=== PATIENT | male | born 1955 | race Caucasian/White ===

== ENCOUNTER 2018-04-05 02:48 | Emergency (ER) | payer OTHER ==
[~2018-04-05] VITALS: Ht 182.9 cm; Wt 99.0 kg
[2018-04-05 02:48] VITALS: TEMP 36.6; O2SAT 97; Ht 182.9 cm; Wt 99.0 kg
[~2018-04-05 02:48] MED LIST: ASPI-461 PO; ATOR-24 PO; BENZ0.5T28 PO; CHOL1000 PO; CICL160A INH; CLOP1TAB15 PO; CMD6 PO; CRG125 PO; FERRTAB PO; HALO100I IM; IMDSR/30 PO; IRONCAP PO; LEVA45AE INH; LORA-741 PO; LSN25 PO; MESA800T2 PO; MIRT30TA2 PO; NTRGSL/4 UT; PANT1TAB4 PO; RANO1000 PO; RISP3TAB12 PO
[2018-04-05 03:18] LABS: BASO % 0.5 %; BASO ABS # 0.03 K/uL (0-0.2); EOS % 2.8 %; EOS ABS # 0.18 K/uL (0-0.5); HEMATOCRIT 36.1 % (42-52); HEMOGLOBIN 11.6 g/dL (14.0-18.0); IG# 0.01 K/uL (0.00-0.02); LYMPH % 23.8 %; LYMPH ABS # 1.54 K/uL (1.2-3.4); MEAN CELL VOLUME 88.7 fL (80-100); MEAN CORPUSCULAR HEMOGLOBIN 28.5 pg (25-34); MEAN CORPUSCULAR HGB CONC 32.1 g/dl (32-36); MEAN PLATELET VOLUME 10.3 fL (7.4-10.4); MONO % 11.1 %; MONO ABS # 0.72 K/uL (0.11-0.59); NEUT % 61.6 %; PLATELET COUNT 225 K/uL (130-400); RED CELL DISTRIBUTION WIDTH CV 13.8 % (11.5-14.5); RED CELL DISTRIBUTION WIDTH SD 44.4 fL (36.4-46.3); WHITE BLOOD COUNT 6.48 K/uL (4.8-10.8)
--- NOTE | 2018-04-05 03:22 | EMERGENCY ROOM VISIT NOTE ---
History Report prepared by Sunshine: Marek Saenz Under the Supervision of: Dr. Amaya Rico D.O. 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 Pt reports he was "just up walking around my cell when I must have passed out and woke up on the floor with left sided chest pain". Pain is sharp and burning and radiates into left shoulder and back. 8/10. Hx of chronic angia, but pt reports "it feels worse than normal". 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 Hx of 3 MIs with stenting 3months ago. Pacer. Checked 2mo. ago and working appropriately per pt. Also has hx of a-fib and cardiomyopathy. History of Present Illness The patient is a 62 year old male who presents to the Emergency Room from [facility] with complaints of an episode of left sided chest pain that onset 30-40 minutes ago. The patient states that he was up walking around his cell this evening and was feeling some chest pains. He notes that he thought these chest pains were "angina." The next thing the patient remembers is waking up on the floor. He does not recall what happened or how he ended up on the floor. He notes that he is now having left sided chest pain that he rates as an 8/10 in severity. The pain does radiate into the back. He denies any associated nausea, sweating, or abdominal pain. He did not suffer any injuries from the fall. The patient received nitroglycerin and 324 of Aspirin prior to arrival, this did not improve the symptoms. The patient does have an extensive cardiac history and has a pacemaker/defibrillator placed in the left chest. 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 A total of 10 systems reviewed and were otherwise negative. Past Medical & Surgical Medical Problems: (1) Anemia (2) Atrial fibrillation (3) Benign prostatic hypertrophy (4) Cerebrovascular disease (5) CHF (congestive heart failure) (6) COPD (chronic obstructive pulmonary disease) (7) Coronary artery disease (8) Diabetic neuropathy (9) Dyslipidemia (10) GERD (gastroesophageal reflux disease) (11) Hepatitis C (12) Hypertension Surgical Problems: (1) Status post cardiac catheterization (2) Status post cardiac pacemaker procedure (3) Status post coronary artery stent placement Family History Coronary artery disease FATHER MOTHER Social History Smoking Status: Current Every Day Smoker Marital Status: single Housing Status: other Occupation Status: other Current/Historical Medications Scheduled Aspirin (Aspirin), 81 MG PO QAM Atorvastatin (Lipitor), 40 MG PO HS Benztropine Mesylate (Benztropine Mesylate), 0.5 MG PO BID Carvedilol (Carvedilol), 12.5 MG PO BIDM Cholecalciferol (Vitamin D3), 2,000 UNITS PO DAILY Ciclesonide (Alvesco), 1 PUFF INH BID Clopidogrel (Plavix), 75 MG PO DAILY Ferrous Fumarate W/ Fa-Dss-B C (Nephron Fa), 1 TAB PO BIDM Haloperidol Decanoate (Haldol Decanoate 100), 1.5 ML IM DAILY/UD Isosorbide Mononitrate (Isosorbide Mononitrate ER), 30 MG PO BID Lisinopril (Lisinopril), 2.5 MG PO QAM Lorazepam (Ativan), 0.5 MG PO BID Mesalamine (Mesalamine Dr), 800 MG PO BID Mirtazapine Soltab (Remeron Soltab), 30 MG PO HS Nitroglycerin (Nitrostat), 0.4 MG UT PRN Pantoprazole (Pantoprazole Sodium), 40 MG PO BID Polysaccharide Iron-Folic Acid (Ferrex 150 Forte 150-1-25 mg-mg-Mcg), 1 CAP PO DAILY Ranolazine (Ranexa), 1,000 MG PO BID Risperidone (Risperdal), 3 MG PO BID Warfarin Sod (Coumadin), 6 MG PO DAILY Scheduled PRN Levalbuterol Tartrate (Levalbuterol Tartrate Hfa), 2 PUFFS INH QID PRN for SOB/ Wheezing Allergies Coded Allergies: Penicillins (Verified Adverse Reaction, Intermediate, "I get sick.", ) Sulfa Antibiotics (Verified Adverse Reaction, Intermediate, "I get sick." , 04/05/18) Uncoded Allergies: OLEORESIN CAPSICUM (Allergy, Unknown, UNKNOWN, 02/15/18) Physical Exam Vital Signs Date Time Temp Pulse Resp B/P (MAP) Pulse Ox O2 Delivery O2 Flow Rate FiO2 04/05/18 04:55 67 16 136/80 96 Room Air 04/05/18 04:02 58 18 134/78 97 Room Air 04/05/18 02:55 60 04/05/18 02:48 97 Room Air 04/05/18 02:48 36.6 63 16 131/75 97 Room Air 04/05/18 02:48 97 Room Air Physical Exam HEENT: Head - normocephalic and atraumatic Pupils are equal, round, and reactive to light. Extraocular eye muscles are intact, and sclera are anicteric. Nose - moist nasal mucosa without discharge. Mouth - moist buccal mucosa. Oropharynx is nonerythematous and there is no tonsillar exudate or edema noted. Neck: Supple; no JVD, nuchal rigidity, cervical lymphadenopathy, or auscultated bruits. Heart: Regular rate and rhythm. There is a normal S1 and S2 with no murmurs, clicks, or gallops appreciated. Lungs: Breath sounds are diminished in all lung franks with rhonchi at both bases. Abdomen: Soft, completely nontender, nondistended, with good bowel sounds. There are no palpable pulsatile masses or hepatosplenomegaly. There is no guarding, rigidity, or rebound noted. Extremities: No evidence of cyanosis, clubbing, or edema. There are easily palpable peripheral pulses. There is discoloration to the fingertips from tobacco. Skin: warm and dry with good turgor and no rashes. Medical Decision & Procedures ER Provider Diagnostic Interpretation: Radiology results as stated below per my review: CHEST X-RAY: No cardiomegaly, pacer/defibrillatory in place. Emphysematous changes present. Laboratory Results 04/05/18 03:02 Red Blood Count 4.07, Mean Corpuscular Volume 88.7, Mean Corpuscular Hemoglobin 28.5, Mean Corpuscular Hemoglobin Concent 32.1, Mean Platelet Volume 10.3, Neutrophils (%) (Auto) 61.6, Lymphocytes (%) (Auto) 23.8, Monocytes (%) (Auto) 11.1, Eosinophils (%) (Auto) 2.8, Basophils (%) (Auto) 0.5, Neutrophils # (Auto ) 4.00, Lymphocytes # (Auto) 1.54, Monocytes # (Auto) 0.72, Eosinophils # (Auto ) 0.18, Basophils # (Auto) 0.03 04/05/18 03:57 Test 04/05/18 03:02 04/05/18 03:57 White Blood Count 6.48 K/uL (4.8-10.8) Red Blood Count 4.07 M/uL (4.7-6.1) Hemoglobin 11.6 g/dL (14.0-18.0) Hematocrit 36.1 % (42-52) Mean Corpuscular Volume 88.7 fL (80-100) Mean Corpuscular Hemoglobin 28.5 pg (25-34) Mean Corpuscular Hemoglobin Concent 32.1 g/dl (32-36) Platelet Count 225 K/uL (130-400) Mean Platelet Volume 10.3 fL (7.4-10.4) Neutrophils (%) (Auto) 61.6 % Lymphocytes (%) (Auto) 23.8 % Monocytes (%) (Auto) 11.1 % Eosinophils (%) (Auto) 2.8 % Basophils (%) (Auto) 0.5 % Neutrophils # (Auto) 4.00 K/uL (1.4-6.5) Lymphocytes # (Auto) 1.54 K/uL (1.2-3.4) Monocytes # (Auto) 0.72 K/uL (0.11-0.59) Eosinophils # (Auto) 0.18 K/uL (0-0.5) Basophils # (Auto) 0.03 K/uL (0-0.2) RDW Standard Deviation 44.4 fL (36.4-46.3) RDW Coefficient of Variation 13.8 % (11.5-14.5) Immature Granulocyte % (Auto) 0.2 % Immature Granulocyte # (Auto) 0.01 K/uL (0.00-0.02) Prothrombin Time 34.5 SECONDS (9.0-12.0) Prothromb Time International Ratio 3.4 (0.9-1.1) Activated Partial Thromboplast Time 37.8 SECONDS (21.0-31.0) Partial Thromboplastin Ratio 1.5 Anion Gap 9.0 mmol/L (3-11) Est Creatinine Clear Calc Drug Dose 124.3 ml/min Estimated GFR () 114.3 Estimated GFR (Non- 98.6 BUN/Creatinine Ratio 7.9 (10-20) Calcium Level 8.2 mg/dl (8.5-10.1) Troponin I < 0.015 ng/ml (0-0.045) Laboratory results per my review. Medications Administered Medications (Trade) Dose Ordered Sig/Kamila Route Start Time Stop Time Status Last Admin Dose Admin Morphine Sulfate (MoRPHine SULFATE INJ) 4 mg NOW STAT IV 04/05/18 03:32 04/05/18 03:33 DC 04/05/18 03:43 4 MG Ondansetron HCl (Zofran Inj) 4 mg NOW STAT IV 04/05/18 03:32 04/05/18 03:33 DC 04/05/18 03:43 4 MG Procedure Medications Ordered: Zofran, Morphine Sulfate. ECG Per My Interpretation Indication: chest pain Rate (beats per minute): 62 Rhythm: normal sinus Findings: no acute ischemic change, no ectopy ED Course 0302: Past medical records reviewed. The patient was evaluated in room B6. A complete history and physical exam was performed. A 12-lead EKG was obtained. Laboratory studies were drawn as above. He had a chest x-ray. 0332: Ordered Morphine Sulfate 4 mg IV, Zofran 4 mg IV. His pacer/ defibrillator will be interrogated. 0338: I spoke with the [employer] policy services representative. He states that the patient's interrogation was totally normal. There was no signs of a cardiac dysrhythmia. 0437: Upon reevaluation, the patient is still having some discomfort but feels pretty good. I discussed findings and results with him. He verbalized agreement of the treatment plan. The patient was discharged home. Medical Decision The patient is a 62 year old male who presents to the Emergency Department with chest pain and syncope. Differential diagnosis includes STEMI, NSTEMI, unstable angina, pleurisy, aortic dissection, syncope, and cardiac dysrhythmia. Laboratory studies were reviewed and show; INR of 3.4, normal renal function, normal glucose, negative troponin, mild anemia with a hemoglobin of 11.6, no leukocytosis. This is a 62-year-old prisoner who presents to the emergency department after syncopal event in his cell. The patient states that he was up walking around in the next thing he knew he was on the ground. Following this event he had persistent substernal chest pain. The patient has a history of chronic chest discomfort. He does have a cardiac history with episodes of angina and previous stents placed. However, the patient has an EKG that is unchanged and negative troponin here in the emergency department. My suspicion is that this episode is noncardiac in origin. As for his syncopal event, it did not seem to be caused by an acute cardiac dysrhythmia. I am unsure what the cause was. He was encouraged to follow-up with the physicians at [facility] Medication Reconcilliation Current Medication List: was personally reviewed by me Blood Pressure Screening Patient's blood pressure: Normal blood pressure Impression Primary Impression: Syncope Additional Impression: Substernal chest pain Scribe Attestation The scribe's documentation has been prepared under my direction and personally reviewed by me in its entirety. I confirm that the note above accurately reflects all work, treatment, procedures, and medical decision making performed by me. Departure Information Dispostion Home / Self-Care ([facility]) Referrals Noah LYLE (PCP) Forms Call Back Authorization, HOME CARE DOCUMENTATION FORM, IMPORTANT VISIT INFORMATION Patient Instructions My [facility] Additional Instructions Rest. Move slowly. sit down immediately if you feel light headed Your chest discomfort does not seem to be cardiac in nature Follow up with the docs at [facility] Problem Qualifiers Primary Impression: Syncope Syncope type: unspecified Qualified Codes: R55 - Syncope and collapse
[2018-04-05] MEDS ORDERED: ONDANSETRON INJ 2 MG/ML 2 ML VIAL IV STA (03:32)
[2018-04-05] MEDS ORDERED: MoRPHine SULFATE 4 MG/ML 1 ML CARP\\VIAL IV STA (03:32)
[2018-04-05 04:15] LABS: INR 3.4 (0.9-1.1); PTT PATIENT 37.8 SECONDS (21.0-31.0)
[2018-04-05 04:25] LABS: BLOOD UREA NITROGEN 6 mg/dl (7-18); CALCIUM 8.2 mg/dl (8.5-10.1); CARBON DIOXIDE 25 mmol/L (21-32); CREATININE 0.77 mg/dl (0.60-1.40); GLUCOSE 91 mg/dl (70-99); SODIUM 142 mmol/L (136-145)
[2018-04-05 04:55] VITALS: BP 136/80; PULSE 67; O2SAT 96
--- NOTE | 2018-04-05 07:16 | DIAGNOSTIC IMAGING REPORT ---
CHEST ONE VIEW PORTABLE HISTORY: Left-sided chest pain. COMPARISON: Chest 02/25/2018. FINDINGS: Left-sided single lead pacemaker/defibrillator. The heart remains borderline enlarged. The lungs are clear. No pleural effusions. No pneumothorax. Old, healed left-sided rib fractures. IMPRESSION: No significant change compared to the prior study. No acute process. Electronically signed by: Rich Patel M.D. 04/05/2018 7:15 AM Dictated Date/Time: 04/05/2018 7:14 AM
== END 2018-04-05 05:05 | disposition home or self-care (01) ==
LOC: C.EDB 02:48 → EDBD 02:48 → C.EDB 05:05
DX: R07.2 Precordial pain (principal); R55 Syncope and collapse; E78.5 Hyperlipidemia, unspecified; J44.9 Chronic obstructive pulmonary disease, unspecified; D64.9 Anemia, unspecified; I11.0 Hypertensive heart disease with heart failure; I50.9 Heart failure, unspecified; K21.9 Gastro-esophageal reflux disease without esophagitis; I48.91 Unspecified atrial fibrillation; I25.2 Old myocardial infarction; Z79.01 Long term (current) use of anticoagulants; Z79.82 Long term (current) use of aspirin; Z79.02 Long term (current) use of antithrombotics/antiplatelets; F17.200 Nicotine dependence, unspecified, uncomplicated; Z95.0 Presence of cardiac pacemaker; Z95.5 Presence of coronary angioplasty implant and graft; Z86.19 Personal history of other infectious and parasitic diseases; Z82.49 Family history of ischemic heart disease and other diseases of the circulatory system; Z88.0 Allergy status to penicillin; Z88.2 Allergy status to sulfonamides

== ENCOUNTER 2019-02-22 12:10 | Inpatient (IN) ==
--- OUTSIDE RECORDS SUMMARY | 2019-02-22 12:12 | External Medical Summary | Continuity of Care Document ---
:1955 Author Name Patrizia Fuentes, Provider Address Unavailable Unavailable , Care Team Providers Name Role Phone Can Parish PA-C Unavailable [email or web address] Bryanna Diane M.D. Unavailable [email or web address] Natalya CONTRERAS Unavailable Unavailable Problems COPD (chronic obstructive pulmonary disease) (496) (J44.9) Gastro-esophageal reflux (530.81) (K21.9) AICD (automatic cardioverter/defibrillator) present (V45.02) (Z95.810) Mitral regurgitation (424.0) (I34.0) Chest pain (786.50) (R07.9) Atypical chest pain (786.59) (R07.89) CAD (coronary artery disease) (414.00) (I25.10) Chronic systolic congestive heart failure (428.22) (I50.22) Hypertension (401.9) (I10) RCA occlusion (410.90) (I24.0) AF (paroxysmal atrial fibrillation) (427.31) (I48.0) Dyslipidemia (272.4) (E78.5) Cardiomyopathy, ischemic (414.8) (I25.5) Allergies and Adverse Reactions Oleoresin Capsicum POWD (Allergy) Penicillins (Allergy) Sulfa Drugs (Allergy) Medications Benztropine Mesylate 0.5 MG Oral Tablet; TAKE 1 TABLET BY [facility] TWICE DAILY Refills: 0 Mirtazapine 30 MG Oral Tablet; TAKE 1 TABLET BY MOUTH AT BED TIME Refills: 0 risperiDONE 3 MG Oral Tablet; TAKE 1 TABLET BY MOUTH TWICE D AILY Refills: 0 Haloperidol Decanoate 100 MG/ML Intramus cular Solution; INJECT 1.5 ML INTRA- MUSCULARLY ONCE DAILY EVERY 3 WEEKS ON DAY THURSDAY Refills: 0 Carvedilol 25 MG Oral Tablet; TAKE 1 TABLET TWICE DAILY. JANETTE Sabillon Quantity: 60 Refills: 11 Lisinopril 2.5 MG Oral Tablet; take 1 tablet by mouth once d aily Refills: 0 Aspirin 81 MG Oral Tablet Chewable; CHEW AND SWALLOW 1 TABLE T DAILY. Refills: 0 DULoxetine HCl - 30 MG Oral Capsule Nelly yed Release Particles; TAKE 1 CAPSUSLE BY MOUTH ONCE DAILY Refills: 0 Alvesco 160 MCG/ACT Inhalation Aerosol S olution; INHALE 1 PUFF ORALLY TWICE DAILY 6.1 GM Inhaler Refills: 0 Atorvastatin Calcium 40 MG Oral Tablet; TAKE 1 TABLET BY RAINER AT BEDTIME 90 Tablet Bottle Refills: 0 Clopidogrel Bisulfate 75 MG Oral Tablet; take 1 tablet by mo [facility] once daily 30 Tablet Bottle Refills: 0 Ferrex 150 150 MG Oral Capsule; take 1 capsule by mouth once daily Refills: 0 Isosorbide Mononitrate ER 30 MG Oral Tab let Extended Release 24 Hour; TAKE 1 TABLET BY MOUTH TWICE DAILY Refills: 0 Mesalamine 800 MG Oral Tablet Delayed Re lease; TAKE 1 TABLET BY MOUTH TWICE DAILY Refills: 0 Nephron FA Oral Tablet; TAKE 1 TABLET BY MOUTH TWICE DAILY W ITH MEALS Refills: 0 Nitroglycerin 0.4 MG Sublingual Tablet S ublingual; PLACE 1 TABLET UNDER THE TONGUE FOUR TIMES DAILY NEEDED FOR CHEST PAIN Refills: 0 Warfarin Sodium 6 MG Oral Tablet; take 1 tablet by mouth onc e daily Refills: 0 Xopenex HFA 45 MCG/ACT Inhalation Aeroso l; INHALE 2 PUFFS ORALLY FOUR TIMES DAILY NEEDED 15 GM Inhaler Refills: 0 Ranexa 1000 MG Oral Tablet Extended Release 12 Hour Refills: 0 Vitamin D3 1000 UNIT Oral Tablet; take 2 tablets by mouth on ce daily Refills: 0 Procedures History of cardioverter defibrillator insertion Status: Completed History of Cardiac Cath Procedure Summary Status: Completed Immunizations Immunizations not documented Social History - Smoking Status Current every day smoker Plan of Treatment Planned Encounters Appointment; Fahad Diane M.D. Start: 21-Feb-2019 10:1 5 Request Planned Observations Planned Goals not documented Results No Known Results Results not documented Encounters Appointment; Paddy Burch M.D. 06-Dec-2018 11:30 Encounter Diagnosis: Problem not documented Appointment; Can Parish PA-C 20-May-2018 10:30 Encounter Diagnosis: Problem not documented Appointment; Fahad Diane M.D. 21-Feb-2019 10:15 Encounter Diagnosis: Problem not documented
[2019-02-22] MEDS ORDERED: SODIUM CHLORIDE 0.9% 1000ML 1,000 ML IV SCH (12:30)
[2019-02-22 13:06] LABS: Basophils # (auto) 0.02 K/uL (0-0.2); Basophils % (auto) 0.4 %; Eosinophils # (auto) 0.15 K/uL (0-0.5); Eosinophils % (auto) 2.8 %; Hematocrit (blood only) 25.2 % (42-52); Hemoglobin 8.8 g/dL (14.0-18.0); Immature Granulocytes # (auto) 0.02 K/uL (0.00-0.02); Immature Granulocytes % (auto) 0.4 %; Lymphocytes # (auto) 1.24 K/uL (1.2-3.4); Lymphocytes % (auto) 23.2 %; Mean Corpuscular Hgb Conc 34.9 g/dL (32-36); Mean Corpuscular Volume 88.1 fL (80-100); Mean Platelet Volume 9.5 fL (7.4-10.4); Monocytes # (auto) 0.46 K/uL (0.11-0.59); Monocytes % (auto) 8.6 %; Neutrophils # (auto) 3.45 K/uL (1.4-6.5); Neutrophils % (auto) 64.6 %; Platelet Count 202 K/uL (130-400); RDW Coefficient of Variation 15.3 % (11.5-14.5); RDW Standard Deviation 49.2 fL (36.4-46.3); Red Blood Count 2.86 M/uL (4.7-6.1); White Blood Count 5.34 K/uL (4.8-10.8)
--- NOTE | 2019-02-22 13:06 | XRay Report ---
SINGLE VIEW CHEST CLINICAL HISTORY: Atypical chest pain. FINDINGS: An AP, portable, upright chest radiograph is compared to chest x-ray and chest CT dated 05/16/2018. The examination is degraded by portable technique and patient rotation. A single lead cardiac AICD is unchanged in position and partially obscures the left lower chest. The heart is enlarged and there is atherosclerotic calcification of the thoracic aorta. The pulmonary vasculature is nonconges jared. Emphysema and chronic interstitial thickening are similar to previous. There is mild bibasilar a telectasis. No airspace consolidation or large pleural effusion is identified. No pneumothorax is see n. The skeletal structures are osteopenic. There are healed bilateral rib fractures. IMPRESSION: 1. Cardiomegaly and AICD. There is no radiographic evidence of congestive failure. 2. Emphysema. 3. No airspace consolidation or large pleural effusion is identified. Electronically signed by: Vincenzo Lion M.D. 02/22/2019 1:04 PM
[2019-02-22 13:27] LABS: Alanine Aminotransferase 22 U/L (12-78); Albumin Level 3.4 gm/dl (3.4-5.0); Aspartate Aminotransferase 19 U/L (15-37); BUN Creatinine Ratio 12.2 (10-20); Blood Urea Nitrogen 15 mg/dl (7-18); Calcium 8.3 mg/dl (8.5-10.1); Carbon Dioxide 24 mmol/L (21-32); Chloride 106 mmol/L (98-107); Est GFR (Non-African American) 65.5; Glucose 112 mg/dl (70-99); Potassium 4.1 mmol/L (3.5-5.1); Sodium 136 mmol/L (136-145)
[2019-02-22 13:34] LABS: Albumin Globulin Ratio 1.2 (0.9-2); Alkaline Phosphatase 66 U/L (45-117); Bilirubin,Total 0.2 mg/dl (0.2-1); Globulin 2.9 gm/dl (2.5-4.0); Phosphorus 2.5 mg/dl (2.5-4.9); Total Protein 6.3 gm/dl (6.4-8.2); Troponin I < 0.015 ng/ml (0-0.045)
[2019-02-22 13:36] LABS: INR 4.7 (0.9-1.1); Prothrombin Time 43.4 Seconds (9.0-12.0)
[2019-02-22] MEDS ORDERED: IOVERSOL 100ml IV PRN (14:14)
--- NOTE | 2019-02-22 14:27 | CT Scan Report ---
CT abd pelvis IV con only CLINICAL HISTORY: hematochezia, abd pain, Crohn's COMPARISON STUDY: None. TECHNIQUE: The patient was scanned in a dynamic helical fashion during intravenous administration of 92 cc of Optiray 320. A dose lowering technique was utilized adhering to the principles of ALARA. CT DOSE: FINDINGS: Lower chest: There is borderline distal esophageal wall thickening. There is a small pericardial effu boby. There are dependent atelectatic changes. There are no pleural effusions. Liver: The contrast-enhanced liver is normal in size, contour, and attenuation. There is no intrahepa tic biliary ductal dilatation. The hepatic veins and portal veins are patent. Gallbladder: Unremarkable. Spleen: Normal in size and attenuation. Pancreas: Unremarkable. Adrenal glands: Unremarkable. Kidneys: There is a to small to characterize 8 mm right renal hypodense lesion, likely representing a cyst. There is no hydronephrosis. Bowel: There are no transition zones indicate bowel obstruction. There is no evidence of acute divert iculitis. There is no evidence of acute appendicitis. Peritoneum: There is no intraperitoneal free air or abdominal ascites. There are postsurgical changes of anterior abdominal wall hernia repair. There is a neck show calcification within the anterior ashly tral abdomen, likely secondary to a prior focus of fat necrosis Vasculature: The abdominal aorta is normal in course and caliber. Adenopathy: None. Pelvic viscera: The bladder, and pelvic viscera are unremarkable. Skeletal structures: No destructive osseous lesions are seen. IMPRESSION: 1. No acute intra-abdominal or pelvic findings. 2. No evidence of bowel obstruction. No evidence of free air. 3. Normal appendix. No evidence of acute diverticulitis. 4. Borderline distal esophageal wall thickening Electronically signed by: Mateo Ocampo M.D. 02/22/2019 2:25 PM
[2019-02-22] MEDS ORDERED: SODIUM CHLORIDE 0.9% 250 ML IV PRN ×2 (14:32→16:12)
[2019-02-22] MEDS ORDERED: PHYTONADIONE 2.5 MG in SODIUM CHLORIDE 0.9% 50 ML IV STA (14:33)
--- NOTE | 2019-02-22 15:09 | Gastrointestinal Consultation ---
Date of Consultation February 22, 2019 Assessment & Plan (1) Crohns disease: 63 year old male with history of Crohn's on mesalamine, afib, cardiac stenting on ASA, Plavix, Coumadin who presents w/ lower abdominal cramping and rectal bleeding starting last evening. He denies any melena or prior coffee ground emesis or hematemesis. He is awake, alert and oriented answering questions appropriately. He does report recent H&H as OP showed anemia w/ HGB around 9. Today HGB 8.8 w/o BUN elevation. INR is 4.7. DDX discussed: ischemic, IBD, diverticular, infectious, UGI PO PPI Trend H&H Monitor and document all GI output Transfuse PRN per primary service Check stool culture, and c.diff Would recommend to hold anticoagulants at this time Would recommend ongoing discussion of length of dual therapy NPO after midnight until re-evaluated by GI Thank you for allowing us to participate in the care of this patient. Please call with any acute changes, questions or concerns. Please see addendum below with additional recommendation from my supervising physician. Present on Admission?: Yes (2) Rectal bleed: Present on Admission?: Yes Supervising Physician Co-Signing Physician Notes I have personally seen and examined the patient with KIM Santoyo. Her note reflects my exam and findings. I agree with her impression and plan. Follow H/H and keep INR closer to 1.5/2.0. Will readdress need for endoscopy tomorrow. Juan Mohr M.D. History of Present Illness Reason for Consultation: GIB Requesting Physician: Malachi Attending Physician: Malachi History of Present Illness 63 year old male with history of AFIB, Ischemic cardiomyopathy, CHF, HLD, anemia, Crohn's disease and others below who presented with rectal bleeding. Pt was seen and evaluated, chart reviewed. Hx of crohn's on mesalamine. Denies abd surgeries for crohn's. Denies any TNF or biologics for Crohn's. He is on ASA, coumadin & Plavix. He has a pacer/defibrillator. Notes yesterday, developed lower abdominal cramping associated w/ fecal urgency. BM was just blood. No stool. Notes he had about three more stools. No black stools. Denies any UGI symtpoms specifically no nausea, vomiting. No fever, chills, CP, SOB. Does feel lightheaded. He is awake, alert and oriented. He has had soft BP and does report lightheadness. He suggest recent H&H at snf showed anemia w/ HGB around 9 - HGB today 8.8. No BUN elevation. EGD: years ago Colonoscopy: about [address]: No acute intra-abdominal or pelvic findings. No evidence of bowel obstruction. No evidence of free air. Normal appendix. No evidence of acute diverticulitis.Borderline distal esophageal wall thickening Allergies Allergy/AdvReac Type Severity Reaction Status Date / Time Penicillins AdvReac Intermediate "I get Verified 02/22/19 15:11 sick." Sulfa (Sulfonamide AdvReac Intermediate "I get Verified 02/22/19 15:11 Antibiotics) sick." OLEORESIN CAPSICUM Allergy Unknown UNKNOWN Uncoded 02/22/19 15:11 Home Medications Home Medications Medication Instructions Recorded Confirmed Type Alvesco 1 puff INHALATION BID 05/16/18 02/22/19 History atorvastatin 40 mg PO HS 05/16/18 02/22/19 History benztropine 0.5 mg PO BID 05/16/18 02/22/19 History clopidogrel [Plavix] 75 mg PO DAILY 05/16/18 02/22/19 History haloperidol decanoate 1.5 ml IM DIRECTED 05/16/18 02/22/19 History lisinopril 2.5 mg PO DAILY 05/16/18 02/22/19 History mesalamine 800 mg PO BID 05/16/18 02/22/19 History nitroglycerin [Nitrostat] 0.4 mg SUBLINGUAL QID PRN 05/16/18 02/22/19 History ranolazine [Ranexa] 1,000 mg PO BID 05/16/18 02/22/19 History albuterol sulfate 2 puff INHALATION TID PRN 02/22/19 02/22/19 History aspirin 81 mg PO DAILY 02/22/19 02/22/19 History carvedilol 25 mg PO BID 02/22/19 02/22/19 History celecoxib 100 mg PO DAILY 02/22/19 02/22/19 History ferrous gluconate 324 mg PO DAILY 02/22/19 02/22/19 History iron-folic acid-B [id number] 1 tab PO DAILY 02/22/19 02/22/19 History [Nephron FA] isosorbide mononitrate 60 mg PO BID 02/22/19 02/22/19 History nortriptyline 25 mg PO BID 02/22/19 02/22/19 History olanzapine 10 mg PO HS 02/22/19 02/22/19 History warfarin 3 mg PO DAILY 02/22/19 02/22/19 History warfarin 4 mg PO DAILY 02/22/19 02/22/19 History Patient History Medical History Neuropathy (Chronic) Mood disorder (Chronic) Presence of combination internal cardiac defibrillator (ICD) and pacemaker (Chronic) Ischemic cardiomyopathy (Chronic) Chronic systolic CHF (congestive heart failure) (Chronic) Crohns disease (Chronic) Coronary artery disease (Chronic) Remote history of RCA territory AL with resultant ischemic cardiomyopathy 10/2017-RIGO to LAD, total RCA occlusion that was not amenable to intervention Atrial fibrillation (Chronic) Hepatitis C (Chronic) Benign prostatic hypertrophy (Chronic) Cerebrovascular disease (Chronic) Dyslipidemia (Chronic) Hypertension (Chronic) GERD (gastroesophageal reflux disease) (Chronic) COPD (chronic obstructive pulmonary disease) (Chronic) Anemia (Chronic) Family History Mother Cancer Father Heart disease Social History Preferred Language: Slovak Communication Ability: Effective 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: No Beliefs That Will Affect Care: None Current Living Situation: Other Feels Safe at Home: Yes Smoking Status: Current some day smoker Tobacco Type: cigarettes Hx Alcohol Use: No Hx Substance Use: No Review of Systems Constitutional: no fever, no chills and no fatigue Respiratory: no cough, no dyspnea and no wheezing Cardiovascular: no chest pain, no radiating jaw, neck or arm pain and no claudication Gastrointestinal: + abdominal pain (cramping) and + blood in stools (BRB); no heartburn, no nausea, no vomiting, no coffee ground emesis, no hematemesis and n o melena Physical Exam Constitutional: WD/WN, vitals as above no acute distress Neck: trachea midline Respiratory: normal respiratory effort and + respiratory distress Cardiovascular: Rate/Rhythm: regular rate and regular rhythm Gastrointestinal (Abdomen): Inspection/Auscultation: normal bowel sounds Percussion/Palpation: + abdomen tender (lower abd pain reported w/ palpation) and abdomen soft; no guarding, abdomen not rigid and no abdominal mass Skin: no rashes, warm and dry Results & Data Vital Signs (Past 12 Hours) Vital Signs Temp Pulse Pulse Resp BP BP Pulse Ox 02/22/19 13:02 70 17 90/57 L 97 02/22/19 12:12 36.5 C 87 20 92/65 L 99 Laboratory Results 02/22/19 02/22/19 02/22/19 Range/Units 14:57 13:01 12:56 WBC (4.8-10.8) K/uL RBC (4.7-6.1) M/uL Hgb (14.0-18.0) g/dL Hct (42-52) % MCV (80-100) fL MCH (25-34) pg MCHC (32-36) g/dL RDW Std Deviation (36.4-46.3) fL RDW Coeff of Joselito (11.5-14.5) % Plt Count (130-400) K/uL MPV (7.4-10.4) fL Immature Gran % (Auto) % Neut % (Auto) % Lymph % (Auto) % [place] % (Auto) % Eos % (Auto) % Baso % (Auto) % Immature Gran # (Auto) (0.00-0.02) K/uL Neut # (Auto) (1.4-6.5) K/uL Lymph # (Auto) (1.2-3.4) K/uL [place] # (Auto) (0.11-0.59) K/uL Eos # (Auto) (0-0.5) K/uL Baso # (Auto) (0-0.2) K/uL PT (9.0-12.0) Seconds INR (0.9-1.1) Sodium 136 (136-145) mmol/L Potassium 4.1 (3.5-5.1) mmol/L Chloride 106 (98-107) mmol/L Carbon Dioxide 24 (21-32) mmol/L Anion Gap 6.0 (3-11) BUN 15 (7-18) mg/dl Creatinine 1.19 (0.6-1.4) mg/dl Est Cr Clr Drug Dosing 73.0 ml/min Est GFR ( Amer) 76.0 Est GFR (Non-Af Amer) 65.5 BUN/Creatinine Ratio 12.2 (10-20) Glucose 112 H (70-99) mg/dl Calcium 8.3 L (8.5-10.1) mg/dl Phosphorus 2.5 (2.5-4.9) mg/dl Magnesium 2.0 (1.8-2.4) mg/dl Total Bilirubin 0.2 (0.2-1) mg/dl AST 19 (15-37) U/L ALT 22 (12-78) U/L Alkaline Phosphatase 66 (45-117) U/L Troponin I < 0.015 (0-0.045) ng/ml Total Protein 6.3 L (6.4-8.2) gm/dl Albumin 3.4 (3.4-5.0) gm/dl Globulin 2.9 (2.5-4.0) gm/dl Albumin/Globulin Ratio 1.2 (0.9-2) Lipase 79 (73-393) U/L Blood Type O Positive Blood Type Recheck Pending Antibody Screen NEGATIVE Crossmatch See Detail 02/22/19 02/22/19 Range/Units 12:56 12:56 WBC 5.34 (4.8-10.8) K/uL RBC 2.86 L (4.7-6.1) M/uL Hgb 8.8 L (14.0-18.0) g/dL Hct 25.2 L (42-52) % MCV 88.1 (80-100) fL MCH 30.8 (25-34) pg MCHC 34.9 (32-36) g/dL RDW Std Deviation 49.2 H (36.4-46.3) fL RDW Coeff of Joselito 15.3 H (11.5-14.5) % Plt Count 202 (130-400) K/uL MPV 9.5 (7.4-10.4) fL Immature Gran % (Auto) 0.4 % Neut % (Auto) 64.6 % Lymph % (Auto) 23.2 % [place] % (Auto) 8.6 % Eos % (Auto) 2.8 % Baso % (Auto) 0.4 % Immature Gran # (Auto) 0.02 (0.00-0.02) K/uL Neut # (Auto) 3.45 (1.4-6.5) K/uL Lymph # (Auto) 1.24 (1.2-3.4) K/uL [place] # (Auto) 0.46 (0.11-0.59) K/uL Eos # (Auto) 0.15 (0-0.5) K/uL Baso # (Auto) 0.02 (0-0.2) K/uL PT 43.4 H (9.0-12.0) Seconds INR 4.7 H (0.9-1.1) Sodium (136-145) mmol/L Potassium (3.5-5.1) mmol/L Chloride (98-107) mmol/L Carbon Dioxide (21-32) mmol/L Anion Gap (3-11) BUN (7-18) mg/dl Creatinine (0.6-1.4) mg/dl Est Cr Clr Drug Dosing ml/min Est GFR ( Amer) Est GFR (Non-Af Amer) BUN/Creatinine Ratio (10-20) Glucose (70-99) mg/dl Calcium (8.5-10.1) mg/dl Phosphorus (2.5-4.9) mg/dl Magnesium (1.8-2.4) mg/dl Total Bilirubin (0.2-1) mg/dl AST (15-37) U/L ALT (12-78) U/L Alkaline Phosphatase (45-117) U/L Troponin I (0-0.045) ng/ml Total Protein (6.4-8.2) gm/dl Albumin (3.4-5.0) gm/dl Globulin (2.5-4.0) gm/dl Albumin/Globulin Ratio (0.9-2) Lipase (73-393) U/L Blood Type Blood Type Recheck Antibody Screen Crossmatch
[2019-02-22] MEDS ORDERED: ICU PROTOCOL FOR HYPERGLYCEMIA PRN (16:12)
--- NOTE | 2019-02-22 16:19 | Emergency Department Note ---
Entered by Gayle Leon acting as a scribe for Kenroy Clark MD History of Present Illness General Chief complaint: Rectal Bleed Stated complaint: RECTAL BLEEDING Time Seen by Provider: 02/22/19 12:28 Source: patient History of Present Illness Provider complaint: rectal bleeding Onset (ago): hour(s) (12) Location: genitals (rectum) Pain Consistency: + other (episode) Maximum Pain Intensity: 6 Associated symptoms: + other (dizziness, hematochezia, black tarry stool, 6-7 bowel movements) Treatments prior to arrival: none The patient is a 63 year old male who presents to the ED with complaints of an episode of rectal bleeding beginning 12 hours ago. The patient states that he noticed black tarry stool with hematochezia last night around 0100 today. The patient notes that he has had 6-7 bowel movements since it started. The patient states that he feels dizzy. The patient denies any treatment prior to arrival. Home Medications Home Medications Medication Instructions Recorded Confirmed Type Alvesco 1 puff INHALATION BID 05/16/18 02/22/19 History atorvastatin 40 mg PO HS 05/16/18 02/22/19 History benztropine 0.5 mg PO BID 05/16/18 02/22/19 History clopidogrel [Plavix] 75 mg PO DAILY 05/16/18 02/22/19 History haloperidol decanoate 1.5 ml IM DIRECTED 05/16/18 02/22/19 History lisinopril 2.5 mg PO DAILY 05/16/18 02/22/19 History mesalamine 800 mg PO BID 05/16/18 02/22/19 History nitroglycerin [Nitrostat] 0.4 mg SUBLINGUAL QID PRN 05/16/18 02/22/19 History ranolazine [Ranexa] 1,000 mg PO BID 05/16/18 02/22/19 History albuterol sulfate 2 puff INHALATION TID PRN 02/22/19 02/22/19 History aspirin 81 mg PO DAILY 02/22/19 02/22/19 History carvedilol 25 mg PO BID 02/22/19 02/22/19 History celecoxib 100 mg PO DAILY 02/22/19 02/22/19 History ferrous gluconate 324 mg PO DAILY 02/22/19 02/22/19 History iron-folic acid-B [id number]-[id number]-pea 1 tab PO DAILY 02/22/19 02/22/19 History [Nephron FA] isosorbide mononitrate 60 mg PO BID 02/22/19 02/22/19 History nortriptyline 25 mg PO BID 02/22/19 02/22/19 History olanzapine 10 mg PO HS 02/22/19 02/22/19 History warfarin 3 mg PO DAILY 02/22/19 02/22/19 History warfarin 4 mg PO DAILY 02/22/19 02/22/19 History Allergies Allergy/AdvReac Type Severity Reaction Status Date / Time Penicillins AdvReac Intermediate "I get Verified 02/22/19 15:11 sick." Sulfa (Sulfonamide AdvReac Intermediate "I get Verified 02/22/19 15:11 Antibiotics) sick." OLEORESIN CAPSICUM Allergy Unknown UNKNOWN Uncoded 02/22/19 15:11 Past Med/Surg History Medical History Neuropathy (Chronic) Mood disorder (Chronic) Presence of combination internal cardiac defibrillator (ICD) and pacemaker (Chronic) Ischemic cardiomyopathy (Chronic) Chronic systolic CHF (congestive heart failure) (Chronic) Crohns disease (Chronic) Coronary artery disease (Chronic) Remote history of RCA territory [place] with resultant ischemic cardiomyopathy 10/2017-RIGO to LAD, total RCA occlusion that was not amenable to intervention Atrial fibrillation (Chronic) Hepatitis C (Chronic) Benign prostatic hypertrophy (Chronic) Cerebrovascular disease (Chronic) Dyslipidemia (Chronic) Hypertension (Chronic) GERD (gastroesophageal reflux disease) (Chronic) COPD (chronic obstructive pulmonary disease) (Chronic) Anemia (Chronic) Family History Mother Cancer Father Heart disease Social History Preferred Language: [place] Communication Ability: Effective Sand Hauler Required: No Beliefs That Will Affect Care: None Current Living Situation: Other Feels Safe at Home: Yes Smoking Status: Current some day smoker Tobacco Type: cigarettes Hx Alcohol Use: No Hx Substance Use: No Review of Systems See HPI for pertinent positives & negatives. and A total of 10 systems reviewed and were otherwise negative Physical Exam Vital Signs Vital Signs - 24 hr 02/22/19 12:12 02/22/19 13:02 02/22/19 13:13 Temperature 36.5 C Temperature Source Oral Sepsis Recent Fever Within 48 Hours No Sepsis New/Unexplained Change in Mental Status No Sepsis Action Taken by Nursing No Action Required Pulse Rate 87 75 70 Pulse Rate [Finger] 70 Pulse Rate from SpO2 Sensor 75 66 Respiratory Rate 20 17 20 Respiratory Effort / Characteristics Non-Labored Spontaneous Respiratory Depth Normal Respiratory Pattern Regular Blood Pressure 92/65 L 98/57 L Blood Pressure [Left Arm] 90/57 L Blood Pressure Mean 74 70 Blood Pressure Mean [Left Arm] 68 Blood Pressure Position Sitting Pulse Oximetry 99 99 98 Oxygen Delivery Method Room Air Room Air 02/22/19 13:30 02/22/19 13:50 02/22/19 14:00 Temperature Temperature Source Sepsis Recent Fever Within 48 Hours Sepsis New/Unexplained Change in Mental Status Sepsis Action Taken by Nursing Pulse Rate 66 64 68 Pulse Rate [Finger] Pulse Rate from SpO2 Sensor 65 64 65 Respiratory Rate 19 15 14 Respiratory Effort / Characteristics Respiratory Depth Respiratory Pattern Blood Pressure 99/63 L Blood Pressure [Left Arm] Blood Pressure Mean 75 Blood Pressure Mean [Left Arm] Blood Pressure Position Pulse Oximetry 97 100 100 Oxygen Delivery Method 02/22/19 14:30 02/22/19 15:00 Temperature Temperature Source Sepsis Recent Fever Within 48 Hours Sepsis New/Unexplained Change in Mental Status Sepsis Action Taken by Nursing Pulse Rate 63 71 Pulse Rate [Finger] Pulse Rate from SpO2 Sensor Respiratory Rate 17 17 Respiratory Effort / Characteristics Respiratory Depth Respiratory Pattern Blood Pressure Blood Pressure [Left Arm] Blood Pressure Mean Blood Pressure Mean [Left Arm] Blood Pressure Position Pulse Oximetry Oxygen Delivery Method GENERAL: Awake, alert, fatigued-appearing, in no distress HENT: Normocephalic, atraumatic. Oropharynx with dry mucous membranes and otherwise unremarkable. EYES: Normal conjunctiva. Sclera non-icteric. NECK: Supple. No nuchal rigidity. FROM. No JVD. RESPIRATORY: Clear to auscultation bilaterally. CARDIAC: Regular rate, normal rhythm. Extremities warm and well perfused. Pulses equal. ABDOMEN: Generalized abdominal discomfort. Soft, non-distended. No discrete tenderness to palpation. No rebound or guarding. No masses. RECTAL: Gross red blood per rectum. No melena. Guaiac positive. . MUSCULOSKELETAL: Chest examination reveals no tenderness. The back is symmetrical on inspection without obvious abnormality. There is no CVA tenderness to palpation. No joint edema. LOWER EXTREMITIES: Calves are equal size bilaterally and non-tender. No edema. No discoloration. NEURO: Normal sensorium. No sensory or motor deficits noted. SKIN: No rash or jaundice noted. Course 1302: Past medical records reviewed. The patient was evaluated in room C3. A complete history and physical exam was performed. 1322: I performed a rectal exam at this time. 1440: I discussed the patient's case with Radha Richards PA-C. She will evaluate the patient for further management. Consultations Consultation #1: I discussed the patient's case with Radha Richards PA-C. She will evaluate the patient for further management. Time: 14:40 Administered Medications Sodium Chloride (Nss) 250 mls @ 15 mls/hr IV .[id number] PRN PRN Reason: For Transfusion Stop: 03/24/19 14:31 Last Admin: 02/22/19 15:09 Dose: 15 mls/hr Documented by: [id number] Discontinued Medications Sodium Chloride (Nss 1000ml) 1,000 mls @ 999 mls/hr IV .[id number] KARAN Stop: 02/22/19 13:30 Last Infusion: 02/22/19 13:59 Dose: 0 mls/hr Documented by: [id number] Admin: 02/22/19 13:02 Dose: 999 mls/hr Documented by: [id number] Phytonadione 2.5 mg/ Sodium (Chloride) 50.25 mls @ 100.5 mls/hr IV NOW STA Stop: 02/22/19 15:02 Last Infusion: 02/22/19 15:40 Dose: 0 mls/hr Documented by: [id number] Admin: 02/22/19 15:09 Dose: 100.5 mls/hr Documented by: [id number] Ioversol (Optiray 320 100ml) 92 ml IV ONCE PRN PRN Reason: Interaction Checking Stop: 02/26/19 14:13 Last Admin: 02/22/19 14:15 Dose: 1 ml Documented by: [id number] Medical Decision Making Differential Diagnosis Differential diagnosis: Etiologies such as esophagitis, variceal bleed, [place]er[place]aves, [place] tear, gastritis, peptic ulcer disease, AVM, inflammatory bowel disease, ischemia, diverticulosis, colitis, malignancy, coagulopathy, thrombocytopenia, fissure, hemorrhoid, epistaxis , as well as others were entertained. Medical Records Attestation: I reviewed the patient's medical records. Home Medications Current Medication List: was personally reviewed by me Laboratory Data Attestation: I reviewed the patient's lab results. Result diagrams: 02/22/19 16:15 02/22/19 12:56 Lab Results 02/22/19 02/22/19 02/22/19 Range/Units 12:56 12:56 12:56 WBC 5.34 (4.8-10.8) K/uL RBC 2.86 L (4.7-6.1) M/uL Hgb 8.8 L (14.0-18.0) g/dL Hct 25.2 L (42-52) % MCV 88.1 (80-100) fL MCH 30.8 (25-34) pg MCHC 34.9 (32-36) g/dL RDW Std Deviation 49.2 H (36.4-46.3) fL RDW Coeff of Joselito 15.3 H (11.5-14.5) % Plt Count 202 (130-400) K/uL MPV 9.5 (7.4-10.4) fL Immature Gran % (Auto) 0.4 % Neut % (Auto) 64.6 % Lymph % (Auto) 23.2 % [place] % (Auto) 8.6 % Eos % (Auto) 2.8 % Baso % (Auto) 0.4 % Immature Gran # (Auto) 0.02 (0.00-0.02) K/uL Neut # (Auto) 3.45 (1.4-6.5) K/uL Lymph # (Auto) 1.24 (1.2-3.4) K/uL [place] # (Auto) 0.46 (0.11-0.59) K/uL Eos # (Auto) 0.15 (0-0.5) K/uL Baso # (Auto) 0.02 (0-0.2) K/uL PT 43.4 H (9.0-12.0) Seconds INR 4.7 H (0.9-1.1) Sodium 136 (136-145) mmol/L Potassium 4.1 (3.5-5.1) mmol/L Chloride 106 (98-107) mmol/L Carbon Dioxide 24 (21-32) mmol/L Anion Gap 6.0 (3-11) BUN 15 (7-18) mg/dl Creatinine 1.19 (0.6-1.4) mg/dl Est Cr Clr Drug Dosing 73.0 ml/min Est GFR ( Amer) 76.0 Est GFR (Non-Af Amer) 65.5 BUN/Creatinine Ratio 12.2 (10-20) Glucose 112 H (70-99) mg/dl Calcium 8.3 L (8.5-10.1) mg/dl Phosphorus 2.5 (2.5-4.9) mg/dl Magnesium 2.0 (1.8-2.4) mg/dl Total Bilirubin 0.2 (0.2-1) mg/dl AST 19 (15-37) U/L ALT 22 (12-78) U/L Alkaline Phosphatase 66 (45-117) U/L Troponin I < 0.015 (0-0.045) ng/ml Total Protein 6.3 L (6.4-8.2) gm/dl Albumin 3.4 (3.4-5.0) gm/dl Globulin 2.9 (2.5-4.0) gm/dl Albumin/Globulin Ratio 1.2 (0.9-2) Lipase 79 (73-393) U/L Blood Type Blood Type Recheck Antibody Screen Crossmatch 02/22/19 02/22/19 Range/Units 13:01 14:57 WBC (4.8-10.8) K/uL RBC (4.7-6.1) M/uL Hgb (14.0-18.0) g/dL Hct (42-52) % MCV (80-100) fL MCH (25-34) pg MCHC (32-36) g/dL RDW Std Deviation (36.4-46.3) fL RDW Coeff of Joselito (11.5-14.5) % Plt Count (130-400) K/uL MPV (7.4-10.4) fL Immature Gran % (Auto) % Neut % (Auto) % Lymph % (Auto) % [place] % (Auto) % Eos % (Auto) % Baso % (Auto) % Immature Gran # (Auto) (0.00-0.02) K/uL Neut # (Auto) (1.4-6.5) K/uL Lymph # (Auto) (1.2-3.4) K/uL [place] # (Auto) (0.11-0.59) K/uL Eos # (Auto) (0-0.5) K/uL Baso # (Auto) (0-0.2) K/uL PT (9.0-12.0) Seconds INR (0.9-1.1) Sodium (136-145) mmol/L Potassium (3.5-5.1) mmol/L Chloride (98-107) mmol/L Carbon Dioxide (21-32) mmol/L Anion Gap (3-11) BUN (7-18) mg/dl Creatinine (0.6-1.4) mg/dl Est Cr Clr Drug Dosing ml/min Est GFR ( Amer) Est GFR (Non-Af Amer) BUN/Creatinine Ratio (10-20) Glucose (70-99) mg/dl Calcium (8.5-10.1) mg/dl Phosphorus (2.5-4.9) mg/dl Magnesium (1.8-2.4) mg/dl Total Bilirubin (0.2-1) mg/dl AST (15-37) U/L ALT (12-78) U/L Alkaline Phosphatase (45-117) U/L Troponin I (0-0.045) ng/ml Total Protein (6.4-8.2) gm/dl Albumin (3.4-5.0) gm/dl Globulin (2.5-4.0) gm/dl Albumin/Globulin Ratio (0.9-2) Lipase (73-393) U/L Blood Type O Positive Blood Type Recheck O Positive Antibody Screen NEGATIVE Crossmatch See Detail Imaging Data Radiologist's Impression: Radiology results as stated below per my review and the radiologist's interpretation: SINGLE VIEW CHEST CLINICAL HISTORY: Atypical chest pain. FINDINGS: An AP, portable, upright chest radiograph is compared to chest x-ray and chest CT dated 05/16/2018. The examination is degraded by portable technique and patient rotation. A single lead cardiac AICD is unchanged in position and partially obscures the left lower chest. The heart is enlarged and there is atherosclerotic calcification of the thoracic aorta. The pulmonary vasculature is noncongested. Emphysema and chronic interstitial thickening are similar to previous. There is mild bibasilar atelectasis. No airspace consolidation or large pleural effusion is identified. No pneumothorax is seen. The skeletal structures are osteopenic. There are healed bilateral rib fractures. IMPRESSION: 1. Cardiomegaly and AICD. There is no radiographic evidence of congestive failure. 2. Emphysema. 3. No airspace consolidation or large pleural effusion is identified. Electronically signed by: Vincenzo Lion M.D. 02/22/2019 1:[address] abd pelvis IV con only CLINICAL HISTORY: hematochezia, abd pain, Crohn's COMPARISON STUDY: None. TECHNIQUE: The patient was scanned in a dynamic helical fashion during intravenous administration of 92 cc of Optiray 320. A dose lowering technique was utilized adhering to the principles of ALARA. CT DOSE: FINDINGS: Lower chest: There is borderline distal esophageal wall thickening. There is a small pericardial effusion. There are dependent atelectatic changes. There are no pleural effusions. Liver: The contrast-enhanced liver is normal in size, contour, and attenuation. There is no intrahepatic biliary ductal dilatation. The hepatic veins and portal veins are patent. Gallbladder: Unremarkable. Spleen: Normal in size and attenuation. Pancreas: Unremarkable. Adrenal glands: Unremarkable. Kidneys: There is a to small to characterize 8 mm right renal hypodense lesion, likely representing a cyst. There is no hydronephrosis. Bowel: There are no transition zones indicate bowel obstruction. There is no evidence of acute diverticulitis. There is no evidence of acute appendicitis. Peritoneum: There is no intraperitoneal free air or abdominal ascites. There are postsurgical changes of anterior abdominal wall hernia repair. There is a neck show calcification within the anterior central abdomen, likely secondary to a prior focus of fat necrosis Vasculature: The abdominal aorta is normal in course and caliber. Adenopathy: None. Pelvic viscera: The bladder, and pelvic viscera are unremarkable. Skeletal structures: No destructive osseous lesions are seen. IMPRESSION: 1. No acute intra-abdominal or pelvic findings. 2. No evidence of bowel obstruction. No evidence of free air. 3. Normal appendix. No evidence of acute diverticulitis. 4. Borderline distal esophageal wall thickening Electronically signed by: Mateo Ocampo M.D. 02/22/2019 2:25 PM ECG Data Attestation: I personally reviewed and interpreted this ECG as follows: Indication: other (hypotension) Rate (beats per minute): 72 Rhythm: sinus rhythm Findings: + other (normal axis) and + PVC; no acute ischemic change Blood Pressure Blood Pressure Findings: Low blood pressure Blood Pressure Disposition: further management by hospitalist JAZMIN Wiggins The patient is a pleasant 63-year-old gentleman current inmate a past [facility] on Coumadin, CAD and cardiomyopathy on aspirin and Plavix, Crohn's disease who presents emergency department from his present facility for generalized weakness, dizziness setting of having acute onset red blood per rectum which began last night with approximate 6 episodes since then of gross red blood per HPI. On arrival patient is uncomfortable but no acute distress, afebrile with blood pressure 90s/60s and vital signs otherwise stable. Patient is meant mentating normally. On exam the patient has mild generalized abdominal discomfort without discrete tenderness. Rectal exam demonstrates gross red blood that is guaiac positive. EKG without overt acute ischemia. Chest x-ray negative for acute process. WBC and platelets within normal limits. H/H 8.8/25.2 which is lower from May 2018 of 12.4/37.6. However, the patient reports he had labs done at his detention that showed a hemoglobin that was similar around 8.9. INR supratherapeutic at 4.7. CT of the abdomen and pelvis unremarkable. The patient's low blood pressure in the setting of his active GI bleed patient was ordered for 1 unit of PRBCs. He was additionally ordered for 2.5 mg of IV vitamin K to reverse his supratherapeutic level of 4.7. Case was discussed with Luisa Contreras who evaluate the patient for admission. Additionally discussed the case with Luisa Santoyo PA-C, and they will evaluate the patient. Impression & Plan GI bleed, Symptomatic anemia Critical Care Time Critical Care Time: Yes Total Critical Care Time: 60 I have personally spent greater than 60 minutes of critical care time in the direct management of this patient. This includes bedside care, interpretation of diagnostic studies, and testing, discussion with consultants, patient, and family members, and other required patient management activities. This 60 minutes is in excess of all separately billable procedures. Discharge Plan Visit Data *Final* Discharge Date/Time: 02/22/19 17:56 Chief Complaint: Rectal Bleed Stated Complaint: RECTAL BLEEDING ED Provider: Kenroy Clark Discharge Problem: GI bleed, Symptomatic anemia Patient Disposition: Admitted As Inpatient Discharge Instructions Interventions: ED Discharge Assessment Last Done: 02/22/19 17:56 Discharge Problem: GI bleed Qualifiers: GI bleed type/associated pathology: unspecified gastrointestinal hemorrhage type Qualified Code(s): K92.2 - Gastrointestinal hemorrhage, unspecified The scribe's documentation has been prepared under my direction and personally reviewed by me in its entirety. I confirm that the note above accurately reflects all work, treatment, procedures, and medical decision making performed by me.
[2019-02-22 16:24] LABS: Hematocrit (blood only) 24.6 % (42-52); Hemoglobin 8.4 g/dL (14.0-18.0)
--- NOTE | 2019-02-22 16:33 | Communication Note ---
Date of Service: February 22, 2019 63-year-old prisoner with a history of Crohn's disease presented to the ER after acute onset abdominal pain and bloody bowel movements x7 since 1 AM. He has a history of cardiac disease status post stent placement 1 year ago on aspirin and Plavix as well as atrial fibrillation on warfarin. He denies feeling poorly yesterday, and his last meal was this morning which he tolerated without issue. In the ER a CT scan was unremarkable for obstruction, inflammation or other acute intra-abdominal or pelvic findings. There was borderline distal esophageal wall thickening noted. A chest x-ray was performed revealed emphysema and an ICD. He does report a history of diarrhea, described as loose watery stools 4 times daily for the past 7 months. Each diarrhea episode is associated with abdominal cramping but resolves with completion of the bowel movement. He reports an acute onset of the bleeding and has had continuous abdominal pain associated with it. The pain is described as left upper quadrant but on exam is more generalized. Physical exam reveals a lucid patient in no acute distress who has generalized tenderness with a nondistended abdomen. Lungs are clear to auscultation and heart exam reveals normal heart sounds without murmurs present. No pedal edema is present. Hemoglobin and hematocrit is 8.8/25 with a baseline of 12 and 37. INR is supratherapeutic at 4.7. Vitamin K 2.5 mg IV was given in the ER. As the patient had borderline low blood pressures in the setting of multiple episodes of hematochezia with an acute onset and a supratherapeutic INR, he will be placed in the ICU overnight for close monitoring. Two large-bore peripheral IVs will be put in place and Gastroenterology was consulted. Will trend H&H and transfuse as needed. Appreciate ICU attending management while there. Continue to monitor in ICU. DO Malachi
--- NOTE | 2019-02-22 17:00 | Critical Care Consultation ---
Date of Consultation February 22, 2019 Assessment & Plan (1) Crohns disease: Reason critically ill: 63yo prisoner with hypotension, hgb of 8 and INR of 4.7 being monitored in the ICU with a likely acute GI bleed. NEURO -[facility] ICU NEGATIVE -PRN Tylenol 1000mg for pain CARD -Pt with Hx of a. fib., ischemic cardiomyopathy s/p ICD placement, CHF, CAD s/p stent placement, HTN, HLD -continue home meds of atorvastatin, coreg -hold lisinopril given hypotension -Hold warfarin for a. fib since INR supratherapeutic -Hold plavix and aspirin poststenting PULM -pt currently on room air saturating well -chest xray with emphysema, noted Hx of COPD -currently coarse breath sounds -continue albuterol as needed GI -Clear liquid diet, NPO after midnight for possible EGD -continue to monitor BM for signs of continued bleeding, trend H/H q6 -consider transfusion below 7, symptomatic or signs of active bleeding -hold warfarin, plavix, aspirin -Continue Protonix daily RENAL//electrolytes -No concerns currently, normal renal function -will continue to monitor and replace electrolytes as needed ID -no concerns currently -currently afebrile, normal WBC -will continue to monitor HEME -Anemia likely due to GI blood loss, hgb currently 8 -continue to monitor BM for signs of continued bleeding, trend H/H q6 -consider transfusion below 7, symptomatic or signs of active bleeding -will continue to monitor ENDO -ICU protocol for hyperglycemia PIVs DVT Prophylaxis-supratherapeutic on warfarin, currently held. Dispo: ICU (2) Rectal bleed: Supervising Physician Co-Signing Physician Notes Dr. Campbell was resident physician during care of patient. I separately evaluated patient for mtz portions of the history and the exam. I was present during the critical portion of medical decision making, and I discussed the case with the resident. I generally agree with the findings and plan. Presumptive lower GI bleed, vitamin K for reversal of Coumadin. Received blood in emergency department. History of Present Illness Attending Physician: Erika Fu MD History of Present Illness Mr. Busby is a 63yo prisoner with a PMHx significant for atrial fibrillation on warfarin and coronary artery stenting ~15months ago, currently on plavix and aspirin who was transferred to the ICU after multiple episodes of bright red bloody bowel movements today. States his last one was about 2pm today. In the ED, he was found to be hypotensive with a hgb of 8.8 on presentation with a noted previous baseline of 12.4. His INR was also 4.7, and is s/p Vit K administration. He currently states he is dizzy and lightheaded with abdominal pain. Allergies Allergy/AdvReac Type Severity Reaction Status Date / Time Penicillins AdvReac Intermediate "I get Verified 02/22/19 15:11 sick." Sulfa (Sulfonamide AdvReac Intermediate "I get Verified 02/22/19 15:11 Antibiotics) sick." OLEORESIN CAPSICUM Allergy Unknown UNKNOWN Uncoded 02/22/19 15:11 Home Medications Home Medications Medication Instructions Recorded Confirmed Type Alvesco 1 puff INHALATION BID 05/16/18 02/22/19 History atorvastatin 40 mg PO HS 05/16/18 02/22/19 History benztropine 0.5 mg PO BID 05/16/18 02/22/19 History clopidogrel [Plavix] 75 mg PO DAILY 05/16/18 02/22/19 History haloperidol decanoate 1.5 ml IM DIRECTED 05/16/18 02/22/19 History lisinopril 2.5 mg PO DAILY 05/16/18 02/22/19 History mesalamine 800 mg PO BID 05/16/18 02/22/19 History nitroglycerin [Nitrostat] 0.4 mg SUBLINGUAL QID PRN 05/16/18 02/22/19 History ranolazine [Ranexa] 1,000 mg PO BID 05/16/18 02/22/19 History albuterol sulfate 2 puff INHALATION TID PRN 02/22/19 02/22/19 History aspirin 81 mg PO DAILY 02/22/19 02/22/19 History carvedilol 25 mg PO BID 02/22/19 02/22/19 History celecoxib 100 mg PO DAILY 02/22/19 02/22/19 History ferrous gluconate 324 mg PO DAILY 02/22/19 02/22/19 History iron-folic acid-B [id number] 1 tab PO DAILY 02/22/19 02/22/19 History [Nephron FA] isosorbide mononitrate 60 mg PO BID 02/22/19 02/22/19 History nortriptyline 25 mg PO BID 02/22/19 02/22/19 History olanzapine 10 mg PO HS 02/22/19 02/22/19 History warfarin 3 mg PO DAILY 02/22/19 02/22/19 History warfarin 4 mg PO DAILY 02/22/19 02/22/19 History Patient History Medical History Neuropathy (Chronic) Mood disorder (Chronic) Presence of combination internal cardiac defibrillator (ICD) and pacemaker (Chronic) Ischemic cardiomyopathy (Chronic) Chronic systolic CHF (congestive heart failure) (Chronic) Crohns disease (Chronic) Coronary artery disease (Chronic) Remote history of RCA territory [place] with resultant ischemic cardiomyopathy 10/2017-RIGO to LAD, total RCA occlusion that was not amenable to intervention Atrial fibrillation (Chronic) Hepatitis C (Chronic) Benign prostatic hypertrophy (Chronic) Cerebrovascular disease (Chronic) Dyslipidemia (Chronic) Hypertension (Chronic) GERD (gastroesophageal reflux disease) (Chronic) COPD (chronic obstructive pulmonary disease) (Chronic) Anemia (Chronic) Family History Mother Cancer Father Heart disease Social History Preferred Language: Persian Communication Ability: Effective Assistant Research Scientist Required: No Beliefs That Will Affect Care: None Current Living Situation: Other Feels Safe at Home: Yes Smoking Status: Current some day smoker Tobacco Type: cigarettes Hx Alcohol Use: No Hx Substance Use: No Review of Systems Review of Systems: All systems reviewed & are unremarkable except as noted in HPI & below Physical Exam Physical Exam: General: Alert, oriented. No acute distress HEENT: NC/AT, PERRLA, EOMI. Chest: Nontender to palpation. CV: RRR, Normal s1, s2. Resp: Breath sounds coarse bilaterally, no increased effort of breathing. Abdomen: Soft, diffusely tender espeically in the epigastrium. No guarding, no rebound. Extremities: Trace edema. Results & Data Vital Signs (Past 12 Hours) Vital Signs Temp Pulse Pulse Resp BP BP Pulse Ox 02/22/19 15:58 65 17 92/61 L 98 02/22/19 15:00 71 17 02/22/19 14:30 63 17 02/22/19 14:00 68 14 100 02/22/19 13:50 64 15 99/63 L 100 02/22/19 13:30 66 19 97 02/22/19 13:13 70 20 98 02/22/19 13:02 75 70 17 98/57 L 90/57 L 99 02/22/19 12:12 36.5 C 87 20 92/65 L 99 Laboratory Results Laboratory Results - last 24 hr 02/22/19 02/22/19 02/22/19 12:56 12:56 12:56 WBC 5.34 RBC 2.86 L Hgb 8.8 L Hct 25.2 L MCV 88.1 MCH 30.8 MCHC 34.9 RDW Std Deviation 49.2 H RDW Coeff of Joselito 15.3 H Plt Count 202 MPV 9.5 Immature Gran % (Auto) 0.4 Neut % (Auto) 64.6 Lymph % (Auto) 23.2 Floyd % (Auto) 8.6 Eos % (Auto) 2.8 Baso % (Auto) 0.4 Immature Gran # (Auto) 0.02 Neut # (Auto) 3.45 Lymph # (Auto) 1.24 Floyd # (Auto) 0.46 Eos # (Auto) 0.15 Baso # (Auto) 0.02 PT 43.4 H INR 4.7 H Sodium 136 Potassium 4.1 Chloride 106 Carbon Dioxide 24 Anion Gap 6.0 BUN 15 Creatinine 1.19 Est Cr Clr Drug Dosing 73.0 Est GFR ( Amer) 76.0 Est GFR (Non-Af Amer) 65.5 BUN/Creatinine Ratio 12.2 Glucose 112 H Calcium 8.3 L Phosphorus 2.5 Magnesium 2.0 Total Bilirubin 0.2 AST 19 ALT 22 Alkaline Phosphatase 66 Troponin I < 0.015 Total Protein 6.3 L Albumin 3.4 Globulin 2.9 Albumin/Globulin Ratio 1.2 Lipase 79 Nasal Screen MRSA (PCR) Blood Type Blood Type Recheck Antibody Screen Crossmatch 02/22/19 02/22/19 02/22/19 13:01 14:57 16:10 WBC RBC Hgb Hct MCV MCH MCHC RDW Std Deviation RDW Coeff of Joselito Plt Count MPV Immature Gran % (Auto) Neut % (Auto) Lymph % (Auto) Floyd % (Auto) Eos % (Auto) Baso % (Auto) Immature Gran # (Auto) Neut # (Auto) Lymph # (Auto) Floyd # (Auto) Eos # (Auto) Baso # (Auto) PT INR Sodium Potassium Chloride Carbon Dioxide Anion Gap BUN Creatinine Est Cr Clr Drug Dosing Est GFR ( Amer) Est GFR (Non-Af Amer) BUN/Creatinine Ratio Glucose Calcium Phosphorus Magnesium Total Bilirubin AST ALT Alkaline Phosphatase Troponin I Total Protein Albumin Globulin Albumin/Globulin Ratio Lipase Nasal Screen MRSA (PCR) Pending Blood Type O Positive Blood Type Recheck O Positive Antibody Screen NEGATIVE Crossmatch See Detail 02/22/19 16:15 WBC RBC Hgb 8.4 L Hct 24.6 L MCV MCH MCHC RDW Std Deviation RDW Coeff of Joselito Plt Count MPV Immature Gran % (Auto) Neut % (Auto) Lymph % (Auto) Floyd % (Auto) Eos % (Auto) Baso % (Auto) Immature Gran # (Auto) Neut # (Auto) Lymph # (Auto) Floyd # (Auto) Eos # (Auto) Baso # (Auto) PT INR Sodium Potassium Chloride Carbon Dioxide Anion Gap BUN Creatinine Est Cr Clr Drug Dosing Est GFR ( Amer) Est GFR (Non-Af Amer) BUN/Creatinine Ratio Glucose Calcium Phosphorus Magnesium Total Bilirubin AST ALT Alkaline Phosphatase Troponin I Total Protein Albumin Globulin Albumin/Globulin Ratio Lipase Nasal Screen MRSA (PCR) Blood Type Blood Type Recheck Antibody Screen Crossmatch Medications Administered Home Medications Alvesco 1 puff INHALATION BID 05/16/18 [History Confirmed 02/22/19] atorvastatin 40 mg PO HS 05/16/18 [History Confirmed 02/22/19] benztropine 0.5 mg PO BID 05/16/18 [History Confirmed 02/22/19] clopidogrel [Plavix] 75 mg PO DAILY 05/16/18 [History Confirmed 02/22/19] haloperidol decanoate 1.5 ml IM DIRECTED 05/16/18 [History Confirmed 02/22/19] lisinopril 2.5 mg PO DAILY 05/16/18 [History Confirmed 02/22/19] mesalamine 800 mg PO BID 05/16/18 [History Confirmed 02/22/19] nitroglycerin [Nitrostat] 0.4 mg SUBLINGUAL QID PRN 05/16/18 [History Confirmed 02/22/19] ranolazine [Ranexa] 1,000 mg PO BID 05/16/18 [History Confirmed 02/22/19] albuterol sulfate 2 puff INHALATION TID PRN 02/22/19 [History Confirmed 02/22/19] aspirin 81 mg PO DAILY 02/22/19 [History Confirmed 02/22/19] carvedilol 25 mg PO BID 02/22/19 [History Confirmed 02/22/19] celecoxib 100 mg PO DAILY 02/22/19 [History Confirmed 02/22/19] ferrous gluconate 324 mg PO DAILY 02/22/19 [History Confirmed 02/22/19] iron-folic acid-B [id number] [Nephron FA] 1 tab PO DAILY 02/22/19 [History Confirmed 02/22/19] isosorbide mononitrate 60 mg PO BID 02/22/19 [History Confirmed 02/22/19] nortriptyline 25 mg PO BID 02/22/19 [History Confirmed 02/22/19] olanzapine 10 mg PO HS 02/22/19 [History Confirmed 02/22/19] warfarin 3 mg PO DAILY 02/22/19 [History Confirmed 02/22/19] warfarin 4 mg PO DAILY 02/22/19 [History Confirmed 02/22/19] Active Medications Atorvastatin Calcium (Lipitor) 40 mg PO HS KARAN Stop: 03/24/19 20:59 Benztropine Mesylate (Cogentin) 0.5 mg PO BID KARAN Stop: 03/24/19 20:59 Ferrous Gluconate (Ferrous Gluconate) 324 mg PO DAILY KARAN Stop: 03/25/19 08:59 Sodium Chloride (Nss) 250 mls @ 15 mls/hr IV .[id number] PRN PRN Reason: For Transfusion Stop: 03/24/19 14:31 Last Admin: 02/22/19 15:09 Dose: 15 mls/hr Documented by: Sodium Chloride (Nss) 250 mls @ 15 mls/hr IV .[id number] PRN PRN Reason: For Transfusion Stop: 03/24/19 16:11 Miscellaneous (Icu Protocol For Hyperglycemia) 1 ea N/A PRN PRN; Protocol PRN Reason: Hyperglycemia Protocol Stop: 02/24/19 16:11 Miscellaneous (Order Awaiting Action) 1 ea N/A QS KARAN Stop: 03/25/19 00:00 Miscellaneous (Order Awaiting Action) 1 ea N/A QS KARAN Stop: 03/25/19 00:00 Nortriptyline HCl (Pamelor) 25 mg PO BID KARAN Stop: 03/24/19 20:59 Olanzapine (Zyprexa) 10 mg PO HS KARAN Stop: 03/24/19 20:59 Vitamin B Complex/Folic Acid (Nephrocaps) 1 cap PO DAILY KARAN Stop: 03/25/19 08:59 PG Care Time/CCT Total # of Minutes Spent Total Time Spent with Patient: Total time spent is greater than 50% in coordination of care (as documented) at patient's floor/unit and/or counseling patient:
--- NOTE | 2019-02-22 17:20 | History & Physical Report ---
Date of Service February 22, 2019 Assessment & Plan (1) Lower GI bleed: -Admit to ICU -Patient presenting from [facility] for evaluation of bright red bleeding per rectum that began yesterday, patient reports 7 episodes since -In the ED, Hgb 8.8 and BP is borderline low in the mid to low 90s -Patient currently on aspirin, Plavix, Coumadin for history of CAD and paroxysmal atrial fibrillation; also noted to be on Celebrex daily -INR 4.7 -Received IV vitamin K 2.5 mg; will continue to hold aspirin, Plavix, Coumadin -1 unit PRBC started in ED due to hypotension, continue to trend serial H&H -CT ABD/pelvis negative for acute findings -GI consult, input appreciated, case discussed with Dorys Torres -PO PPI (2) Crohns disease: -CT ABD/pelvis does not suggest an acute flare -On mesalamine (3) Presence of combination internal cardiac defibrillator (ICD) and pacemaker: (4) Ischemic cardiomyopathy: (5) Coronary artery disease: -Appears stable, no reports of chest pain -Due to hypotension, will hold carvedilol, isosorbide, lisinopril, Ranexa and resume as soon as BP allows -Holding antiplatelets as above -S/P RIGO to LAD 10/2017 -Cardiology consult re: antiplatelet/anticoagulation use once GI bleed has resolved (6) Atrial fibrillation: -Currently in NSR -Holding beta-maru and anticoagulation as above (7) COPD (chronic obstructive pulmonary disease): -No signs of acute exacerbation -Continue home inhalers (8) Mood disorder: -Continue home meds including olanzapine, benztropine, nortriptyline (9) DVT prophylaxis: -SCDs when INR <2.0 History of Present Illness Chief Complaint: Bright red bleeding per rectum Primary Care Provider: DAR[facility]ELA Noah 63-year-old male who presents to the ED with bright red bleeding per rectum. Patient reports his symptoms began last evening. He reports 7 episodes of diarrhea with large amounts of bright red blood. He reports associated left lower quadrant abdominal cramping. Patient reports underlying history of Crohn's and reports this is similar to his chronic abdominal pain from Crohn's. No nausea or vomiting. He reports he has felt lightheaded and dizzy but denies any syncopal event. No fevers or chills. He denies chest pain shortness of breath. No urinary symptoms. Patient is on aspirin and Plavix (A/P RIGO to LAD 10/2017) and Coumadin (paroxysmal atrial fibrillation). He denies heavy NSAID use however is on Celebrex daily. In the ER, Hgb 8.8, INR 4.7. BPs have been borderline low in the low to mid 90s. He was given IVF, IV vitamin K 2.5 mg, ordered 1 unit PRBC. Allergies Allergy/AdvReac Type Severity Reaction Status Date / Time Penicillins AdvReac Intermediate "I get Verified 02/22/19 15:11 sick." Sulfa (Sulfonamide AdvReac Intermediate "I get Verified 02/22/19 15:11 Antibiotics) sick." OLEORESIN CAPSICUM Allergy Unknown UNKNOWN Uncoded 02/22/19 15:11 Home Medications Home Medications Medication Instructions Recorded Confirmed Type Alvesco 1 puff INHALATION BID 05/16/18 02/22/19 History atorvastatin 40 mg PO HS 05/16/18 02/22/19 History benztropine 0.5 mg PO BID 05/16/18 02/22/19 History clopidogrel [Plavix] 75 mg PO DAILY 05/16/18 02/22/19 History haloperidol decanoate 1.5 ml IM DIRECTED 05/16/18 02/22/19 History lisinopril 2.5 mg PO DAILY 05/16/18 02/22/19 History mesalamine 800 mg PO BID 05/16/18 02/22/19 History nitroglycerin [Nitrostat] 0.4 mg SUBLINGUAL QID PRN 05/16/18 02/22/19 History ranolazine [Ranexa] 1,000 mg PO BID 05/16/18 02/22/19 History albuterol sulfate 2 puff INHALATION TID PRN 02/22/19 02/22/19 History aspirin 81 mg PO DAILY 02/22/19 02/22/19 History carvedilol 25 mg PO BID 02/22/19 02/22/19 History celecoxib 100 mg PO DAILY 02/22/19 02/22/19 History ferrous gluconate 324 mg PO DAILY 02/22/19 02/22/19 History iron-folic acid-B [id number] 1 tab PO DAILY 02/22/19 02/22/19 History [Nephron FA] isosorbide mononitrate 60 mg PO BID 02/22/19 02/22/19 History nortriptyline 25 mg PO BID 02/22/19 02/22/19 History olanzapine 10 mg PO HS 02/22/19 02/22/19 History warfarin 3 mg PO DAILY 02/22/19 02/22/19 History warfarin 4 mg PO DAILY 02/22/19 02/22/19 History Past Med/Surg History Medical History Neuropathy (Chronic) Mood disorder (Chronic) Presence of combination internal cardiac defibrillator (ICD) and pacemaker (Chronic) Ischemic cardiomyopathy (Chronic) Chronic systolic CHF (congestive heart failure) (Chronic) Crohns disease (Chronic) Coronary artery disease (Chronic) Remote history of RCA territory [place] with resultant ischemic cardiomyopathy 10/2017-RIGO to LAD, total RCA occlusion that was not amenable to intervention Atrial fibrillation (Chronic) Hepatitis C (Chronic) Benign prostatic hypertrophy (Chronic) Cerebrovascular disease (Chronic) Dyslipidemia (Chronic) Hypertension (Chronic) GERD (gastroesophageal reflux disease) (Chronic) COPD (chronic obstructive pulmonary disease) (Chronic) Anemia (Chronic) Family History Mother Cancer Father Heart disease Social History Preferred Language: Bulgarian Communication Ability: Effective Hide Mill Worker Required: No Beliefs That Will Affect Care: None Current Living Situation: Other Feels Safe at Home: Yes Smoking Status: Current some day smoker Tobacco Type: cigarettes Hx Alcohol Use: No Hx Substance Use: No Review of Systems Review of Systems: ROS per HPI, all other systems reviewed and negative Physical Exam Constitutional: WD/WN, vitals as above Eyes: PERRL, conjunctivae normal, anicteric sclerae ENMT: external ear and nose normal, oropharynx normal Respiratory: normal respiratory effort; no respiratory distress Auscultati on: no wheezes Coarse breath sounds bilaterally Cardiovascular: Rate/Rhythm: regular rate and regular rhythm Vessels: normal peripheral pulses Extremities: no edema Gastrointestinal (Abdomen): Inspection/Auscultation: normal bowel sounds Percussion/Palpation: + abdomen tender (LLQ) and abdomen soft; no hepatosplenomegaly Musculoskeletal: no cyanosis or clubbing, extremities motor strength 5/5 Skin: no rashes, warm and dry Neurologic: PERRL, EOMI, accommodation nl, no face palsy, no dysarthria Psychiatric: A+Ox3, euthymic affect Results & Data Vital Signs (Past 12 Hours) Vital Signs Temp Pulse Pulse Resp BP BP Pulse Ox 02/22/19 15:58 65 17 92/61 L 98 02/22/19 15:00 71 17 02/22/19 14:30 63 17 02/22/19 14:00 68 14 100 02/22/19 13:50 64 15 99/63 L 100 02/22/19 13:30 66 19 97 02/22/19 13:13 70 20 98 02/22/19 13:02 75 70 17 98/57 L 90/57 L 99 02/22/19 12:12 36.5 C 87 20 92/65 L 99 Laboratory Results Short CBC 02/22/19 02/22/19 Range/Units 12:56 16:15 WBC 5.34 (4.8-10.8) K/uL Hgb 8.8 L 8.4 L (14.0-18.0) g/dL Hct 25.2 L 24.6 L (42-52) % Plt Count 202 (130-400) K/uL BMP 02/22/19 12:56 Sodium 136 Potassium 4.1 Chloride 106 Carbon Dioxide 24 BUN 15 Creatinine 1.19 Glucose 112 H Calcium 8.3 L Cardiac Enzymes 02/22/19 Range/Units 12:56 Troponin I < 0.015 (0-0.045) ng/ml Liver Function 02/22/19 Range/Units 12:56 Total Bilirubin 0.2 (0.2-1) mg/dl AST 19 (15-37) U/L ALT 22 (12-78) U/L Alkaline Phosphatase 66 (45-117) U/L Albumin 3.4 (3.4-5.0) gm/dl Diagnostic Findings CXR IMPRESSION: 1. Cardiomegaly and AICD. There is no radiographic evidence of congestive failure. 2. Emphysema. 3. No airspace consolidation or large pleural effusion is identified. CT ABD/PELVIS IMPRESSION: 1. No acute intra-abdominal or pelvic findings. 2. No evidence of bowel obstruction. No evidence of free air. 3. Normal appendix. No evidence of acute diverticulitis. 4. Borderline distal esophageal wall thickening Code Status & VTE Plan Code Status Patient is a DNR as per my discussion with him. VTE Prophylaxis Plan VTE Prophylaxis will be ordered: Yes Supervising Physician Co-Signing Physician Notes I have seen and examined the patient and have discussed the case with the provider above. I agree with the assessment and plan as stated with the exception that I agree with Cardiology adding a lower dose beta maru back to avoid acute BB withdrawal. He is notably on four blood thinners at home including ASA, Plavix, Celebrex and coumadin. Appreciate their recs for de- escalating some of this therapy. See Communication Report for full addendum. DO Malachi
--- NOTE | 2019-02-22 17:22 | Cardiology Consultation ---
Date of Consultation February 22, 2019 Assessment & Plan (1) Crohns disease: GI input noted and appreciated. Patient has a history of Crohn's disease, and presents with lower abdominal cramping and rectal bleeding since last evening. (2) Ischemic cardiomyopathy: Patient with a history of ischemic cardia myopathy. His most recent echocardiogram performed at this institution May 2018 revealed akinesis of the inferior wall consistent with the patient's history of a right coronary artery territory infarction/scar. The left ventricular ejection fraction was mildly reduced in the range of 40-45% at that time. Mild aortic valve sclerosis without stenosis was present. The patient is well compensated from a volume status standpoint at present without evidence of volume overload. All of his blood pressure is a little bit on the lower side, he does have a history of relative low blood pressure in the past. I agree with the plan to monitor the patient closely in intensive care unit with adequate IV access. I think his transfusion threshold should be for hemoglobin less than 7 g/dL at present unless he develops symptoms suggestive of angina. At which time when turned proceed with a hemoglobin goal of 7 to 10 g/dL. As noted in his history, he has a history of coronary heart disease with chronic occlusion of the proximal right coronary artery as demonstrated on cardiac catheterization performed at [facility] in 2017. He underwent PCI and drug-eluting stent to the mid LAD in [place] in October 2017. He presents on triple therapy with aspirin, clopidogrel, and Coumadin given his history of ischemic cardiomyopathy, and paroxysmal atrial fibrillation. At this time, aspirin, clopidogrel and Coumadin have all been placed on hold. He is received IV vitamin K. I anticipate that he does not need ongoing clopidogrel therapy at his he is over 1 year removed from a drug-eluting stent to the LAD. If his hemoglobin is stable tomorrow I plan to reintroduce aspirin 81 mg daily. We will need to reassess the benefits versus risks of ongoing anticoagulation with Coumadin. He apparently has a history of paroxysmal atrial fibrillation, but he was in sinus rhythm at the time of his last admission in May and is in sinus rhythm again today. (3) Presence of combination internal cardiac defibrillator (ICD) and pacemaker: History of single-chamber AICD. (4) Atrial fibrillation: The patient's carvedilol is tentatively on hold. His blood pressure however is low at baseline, and I believe he would be at risk for angina and recurrent atrial fibrillation from acute beta-maru withdrawal. I am therefore going to reorder his carvedilol at a lower dose 12.5 mg 2 times per day, with holds for systolic blood pressure less than 95 mmHg. History of Present Illness Attending Physician: Erika Fu MD History of Present Illness Edil Busby is a 63 year old male seen in cardiology consultation per the request of KIM Schmitz for cardiology advice regarding the patient's treatment with antiplatelet agents and anticoagulation with Coumadin given his presentation with blood per rectum. The patient is an inmate at [facility]. I had previously seen him in cardiology consultation on 05/16/18. He has not been readmitted since that May visit prior to today's admission, and he does not believe he has seen cardiology as an outpatient. He presented today having had dark tarry stool as well as bright red blood per rectum since last evening. His hemoglobin has drawn today at 1615 is 8.4. Most recent systolic blood pressure was 92 mmHg, with blood pressure reading of 99/63 prior to that. Per review of his prior records, he often does have relatively low blood pressures with systolic readings in the 90-110 millimeters of mercury on his prior admission in May. At present, the patient was eating a light meal and was in no acute distress when I saw him in ICU room 109. His INR was above goal at 4.7. He received vitamin K 2.5 mg intravenously in the emergency room. Serial hemoglobin and hematocrit readings have been ordered by the admitting team. PAST MEDICAL HISTORY Apparent long-standing history of chronic cardiac and noncardiac chest pain. He has been evaluated at multiple institutions in the past including the [facility] as well as [facility]. He has a long-standing history of coronary heart disease with remote right coronary artery territory myocardial infarction and resultant ischemic cardiomyopathy. He underwent implantation of a single-chamber Medtronic AICD in 2011 for the apparent indication of primary prevention of sudden cardiac Most recently had cardiac catheterization x2 at [facility] revealing chronic occlusion of the proximal right coronary artery. Patient was found to have an intermediate 45-50% stenosis of the mid LAD that had initially been found to not be hemodynamically significant by fractional flow reserve and therefore medication management was recommended. The patient however returned to [place] with recurrent chest discomfort and underwent drug-eluting stent to the mid LAD in October 2017. The procedure report/discharge summary is scanned into his [facility] electronic record from his stay in February, Patient was admitted to [facility] February, for chest discomfort. Cardiac enzymes are negative. He was found to have moderate LV systolic dysfunction with ejection fraction in the range of 35% with inferior wall scar and also dyssynchronous ventricular contraction with frequent right ventricular pacing. The patient's device was interrogated and was found to be functioning appropriately. The lower rate limit was reduced from 55 bpm to 45 bpm to encourage [place] conduction per Dr. Clifton's advice during that admission The patient also underwent EGD during that hospital stay revealing mild duodenitis, February, Other issues include past history of paroxysmal atrial fibrillation but he was in sinus rhythm when he was here in February,, sinus bradycardia, dyslipidemia, hepatitis C, apparent cerebrovascular disease, diabetes with diabetic neuropathy SURGICAL HISTORY Multiple cardiac procedures including multiple cardiac catheterizations, at least 3, AICD placement, EGD as noted above Allergies Allergy/AdvReac Type Severity Reaction Status Date / Time Penicillins AdvReac Intermediate "I get Verified 02/22/19 15:11 sick." Sulfa (Sulfonamide AdvReac Intermediate "I get Verified 02/22/19 15:11 Antibiotics) sick." OLEORESIN CAPSICUM Allergy Unknown UNKNOWN Uncoded 02/22/19 15:11 Home Medications Home Medications Medication Instructions Recorded Confirmed Type Alvesco 1 puff INHALATION BID 05/16/18 02/22/19 History atorvastatin 40 mg PO HS 05/16/18 02/22/19 History benztropine 0.5 mg PO BID 05/16/18 02/22/19 History clopidogrel [Plavix] 75 mg PO DAILY 05/16/18 02/22/19 History haloperidol decanoate 1.5 ml IM DIRECTED 05/16/18 02/22/19 History lisinopril 2.5 mg PO DAILY 05/16/18 02/22/19 History mesalamine 800 mg PO BID 05/16/18 02/22/19 History nitroglycerin [Nitrostat] 0.4 mg SUBLINGUAL QID PRN 05/16/18 02/22/19 History ranolazine [Ranexa] 1,000 mg PO BID 05/16/18 02/22/19 History albuterol sulfate 2 puff INHALATION TID PRN 02/22/19 02/22/19 History aspirin 81 mg PO DAILY 02/22/19 02/22/19 History carvedilol 25 mg PO BID 02/22/19 02/22/19 History celecoxib 100 mg PO DAILY 02/22/19 02/22/19 History ferrous gluconate 324 mg PO DAILY 02/22/19 02/22/19 History iron-folic acid-B [id number] 1 tab PO DAILY 02/22/19 02/22/19 History [Nephron FA] isosorbide mononitrate 60 mg PO BID 02/22/19 02/22/19 History nortriptyline 25 mg PO BID 02/22/19 02/22/19 History olanzapine 10 mg PO HS 02/22/19 02/22/19 History warfarin 3 mg PO DAILY 02/22/19 02/22/19 History warfarin 4 mg PO DAILY 02/22/19 02/22/19 History Patient History Medical History Neuropathy (Chronic) Mood disorder (Chronic) Presence of combination internal cardiac defibrillator (ICD) and pacemaker (Chronic) Ischemic cardiomyopathy (Chronic) Chronic systolic CHF (congestive heart failure) (Chronic) Crohns disease (Chronic) Coronary artery disease (Chronic) Remote history of RCA territory NC with resultant ischemic cardiomyopathy 10/2017-RIGO to LAD, total RCA occlusion that was not amenable to intervention Atrial fibrillation (Chronic) Hepatitis C (Chronic) Benign prostatic hypertrophy (Chronic) Cerebrovascular disease (Chronic) Dyslipidemia (Chronic) Hypertension (Chronic) GERD (gastroesophageal reflux disease) (Chronic) COPD (chronic obstructive pulmonary disease) (Chronic) Anemia (Chronic) Family History Mother Cancer Father Heart disease Social History Preferred Language: Portuguese Beliefs That Will Affect Care: None Current Living Situation: Other Feels Safe at Home: Yes Smoking Status: Former smoker Hx Alcohol Use: No Review of Systems Review of Systems: All systems reviewed & are unremarkable except as noted in HPI & below Physical Exam Physical Exam: Temp Pulse Resp BP Pulse Ox 36.5 C 65 17 92/61 L 98 02/22/19 12:12 02/22/19 15:58 02/22/19 15:58 02/22/19 15:58 02/22/19 15:58 Constitutional: WD/WN, vitals as above Respiratory: normal respiratory effort, lungs clear to auscultation Cardiovascular: RRR, no murmur, no edema Gastrointestinal (Abdomen): normal bowel sounds, soft, nontender, no hepatosplenomegaly Neurologic: PERRL, EOMI, accommodation nl, no face palsy, no dysarthria Results & Data Vital Signs (Past 12 Hours) Vital Signs Temp Pulse Pulse Resp BP BP Pulse Ox 02/22/19 15:58 65 17 92/61 L 98 02/22/19 15:00 71 17 02/22/19 14:30 63 17 02/22/19 14:00 68 14 100 02/22/19 13:50 64 15 99/63 L 100 02/22/19 13:30 66 19 97 02/22/19 13:13 70 20 98 02/22/19 13:02 75 70 17 98/57 L 90/57 L 99 02/22/19 12:12 36.5 C 87 20 92/65 L 99 Laboratory Results Cardiac Enzymes 02/22/19 Range/Units 12:56 AST 19 (15-37) U/L Troponin I < 0.015 (0-0.045) ng/ml Coagulation 02/22/19 Range/Units 12:56 PT 43.4 H (9.0-12.0) Seconds CBC 02/22/19 02/22/19 Range/Units 12:56 16:15 WBC 5.34 (4.8-10.8) K/uL RBC 2.86 L (4.7-6.1) M/uL Hgb 8.8 L 8.4 L (14.0-18.0) g/dL Hct 25.2 L 24.6 L (42-52) % Plt Count 202 (130-400) K/uL Neut # (Auto) 3.45 (1.4-6.5) K/uL Lymph # (Auto) 1.24 (1.2-3.4) K/uL [place] # (Auto) 0.46 (0.11-0.59) K/uL Eos # (Auto) 0.15 (0-0.5) K/uL Baso # (Auto) 0.02 (0-0.2) K/uL Comprehensive Metabolic Panel 02/22/19 Range/Units 12:56 Sodium 136 (136-145) mmol/L Potassium 4.1 (3.5-5.1) mmol/L Chloride 106 (98-107) mmol/L Carbon Dioxide 24 (21-32) mmol/L BUN 15 (7-18) mg/dl Creatinine 1.19 (0.6-1.4) mg/dl Glucose 112 H (70-99) mg/dl Calcium 8.3 L (8.5-10.1) mg/dl AST 19 (15-37) U/L ALT 22 (12-78) U/L Alkaline Phosphatase 66 (45-117) U/L Total Protein 6.3 L (6.4-8.2) gm/dl Albumin 3.4 (3.4-5.0) gm/dl Intake and Output 02/22/19 02/22/19 02/22/19 06:59 14:59 22:59 Intake Total 1000 / 1050.25 50.25 / 1050.25 Balance 1000 / 1050.25 50.25 / 1050.25 Intake: IV 1000 / 1050.25 50.25 / 1050.25 Aqua-Mephyton 2.5 mg In Nss 50 50.25 / 50.25 ml @ 100.5 mls/hr IV NOW STA Rx #:[id number] Nss 1000ML 1,000 ml @ 999 mls/ 1000 / 1000 hr IV .[id number] [facility] Rx#:[id number] Other: Weight 95.4 kg Patient Weight 02/23/19 06:59 Weight 95.4 kg Diagnostic Findings EKG performed today 02/22/2019 at 12:54 PM and reviewed independently: Sinus rhythm at 72 bpm with occasional PVCs, no significant repolarization abnormalities. Compared to May 2018, the PVCs are now noted. Medications Administered Current Inpatient Medications Atorvastatin Calcium (Lipitor) 40 mg PO HS KARAN Stop: 03/24/19 20:59 Benztropine Mesylate (Cogentin) 0.5 mg PO BID KARAN Stop: 03/24/19 20:59 Ferrous Gluconate (Ferrous Gluconate) 324 mg PO DAILY KARAN Stop: 03/25/19 08:59 Sodium Chloride (Nss) 250 mls @ 15 mls/hr IV .[id number] PRN PRN Reason: For Transfusion Stop: 03/24/19 14:31 Last Admin: 02/22/19 15:09 Dose: 15 mls/hr Documented by: Sodium Chloride (Nss) 250 mls @ 15 mls/hr IV .[id number] PRN PRN Reason: For Transfusion Stop: 03/24/19 16:11 Miscellaneous (Icu Protocol For Hyperglycemia) 1 ea N/A PRN PRN; Protocol PRN Reason: Hyperglycemia Protocol Stop: 02/24/19 16:11 Miscellaneous (Order Awaiting Action) 1 ea N/A QS KARAN Stop: 03/25/19 00:00 Miscellaneous (Order Awaiting Action) 1 ea N/A QS KARAN Stop: 03/25/19 00:00 Nortriptyline HCl (Pamelor) 25 mg PO BID KARAN Stop: 03/24/19 20:59 Olanzapine (Zyprexa) 10 mg PO HS KARAN Stop: 03/24/19 20:59 Vitamin B Complex/Folic Acid (Nephrocaps) 1 cap PO DAILY KARAN Stop: 03/25/19 08:59
[2019-02-22] MEDS: BENZTROPINE MESYLATE 0.5 MG TAB PO SCH (21:20)
[2019-02-22] MEDS: ATORVASTATIN 40 MG TAB PO SCH (21:20)
[2019-02-22] MEDS: CARVEDILOL 12.5 MG TAB PO SCH (21:20)
[2019-02-22] MEDS: OLANZapine 10 MG TAB PO SCH (21:21)
[2019-02-22] MEDS: PANTOprazole 40 MG TAB PO SCH (21:21)
[2019-02-22] MEDS: NORTRIPTYLINE HCL 25 MG CAP PO SCH (21:21)
[2019-02-22] MEDS: ACETAMINOPHEN 500 MG TAB PO PRN (21:21)
[2019-02-22] MEDS ORDERED: PNEUMOCOCCAL ADMINISTRATION CHARGE ONE (21:45)
[2019-02-22] MEDS ORDERED: PNEUMOCOCCAL POLYSACCHARIDES 25 MCG/0.5 ML VIAL/SYR IM ONE (21:45)
[2019-02-22 22:12] LABS: Hematocrit (blood only) 26.4 % (42-52); Hemoglobin 9.1 g/dL (14.0-18.0)
[2019-02-22 22:23] LABS: INR 2.1 (0.9-1.1); Prothrombin Time 20.4 Seconds (9.0-12.0)
[2019-02-23] MEDS: [UNRECOGNIZED DRUG - OTHER] SCH ×3 (00:48→15:53)
[2019-02-23 04:23] LABS: Hematocrit (blood only) 27.1 % (42-52); Hemoglobin 9.3 g/dL (14.0-18.0); Mean Corpuscular Hgb Conc 34.3 g/dL (32-36); Mean Corpuscular Volume 89.4 fL (80-100); Mean Platelet Volume 9.8 fL (7.4-10.4); Platelet Count 179 K/uL (130-400); RDW Coefficient of Variation 15.1 % (11.5-14.5); RDW Standard Deviation 49.2 fL (36.4-46.3); Red Blood Count 3.03 M/uL (4.7-6.1); White Blood Count 4.14 K/uL (4.8-10.8)
[2019-02-23 04:49] LABS: BUN Creatinine Ratio 12.8 (10-20); Calcium 7.9 mg/dl (8.5-10.1); Creatinine Clr Calc Pharmacy 114.8 ml/min; Est GFR (African American) 111.2; Est GFR (Non-African American) 95.9
--- NOTE | 2019-02-23 07:04 | Critical Care Progress Note ---
Date of Service February 23, 2019 Assessment & Plan (1) Crohns disease: Reason critically ill: 63yo prisoner with hypotension, hgb of 8 and INR of 4.7 being monitored in the ICU with a likely acute lower GI bleed. Stable for ICU downgrade this AM. NEURO -CAM ICU NEGATIVE -PRN Tylenol 1000mg for pain CARD/VASCULAR -Pt with Hx of a. fib., ischemic cardiomyopathy s/p ICD placement, CHF, CAD s/p stent placement, HTN, HLD -Occasional PVCs noted currently -continue home meds: coreg at half home dose, atorvastatin for HLD -hold lisinopril given hypotension -Consider stopping warfarin for atrial fibrillation permanently given pt currently in normal sinus rhythm and bleeding risk currently outweighs clotting risk. -INR down to 2.1 this AM, repeat dose of 2.5mg Vit K administered. -Continue to hold plavix, can consider restart of aspirin. PULM -pt currently on room air saturating well -chest xray with emphysema, noted Hx of COPD -currently coarse breath sounds -continue albuterol as needed GI -No further GI bleeding episodes; seemingly resolved with cessation of anticoagulation. -H/H improved this AM; will continue to monitor. -Currently NPO for possible EGD -consider transfusion below 7, symptomatic or signs of active bleeding -as above for cessation of warfarin and plavix (risk of bleeding outweighs embolic risk), consider restart of aspirin -Continue Protonix daily RENAL//electrolytes -No concerns currently, normal renal function -will continue to monitor and replace electrolytes as needed ID -no concerns currently -currently afebrile, normal WBC -will continue to monitor HEME -Anemia likely due to lower GI blood loss, hgb currently improving with cessation of anticoagulation -continue to monitor BM for signs of continued bleeding, trend H/H -consider transfusion below 7, symptomatic or signs of active bleeding -will continue to monitor ENDO -ICU protocol for hyperglycemia PIVs DVT Prophylaxis-supratherapeutic on warfarin, currently held. Dispo: ICU (2) Rectal bleed: Supervising Physician Co-Signing Physician Notes Dr. Campbell was resident physician during care of patient. I separately evaluated patient for mtz portions of the history and the exam. I was present during the critical portion of medical decision making, and I discussed the case with the resident. I generally agree with the findings and plan. H&H remained stable. Patient is in normal sinus rhythm and appears to be in normal sinus rhythm over past several engagements in healthcare system. Bleeding risks outweigh embolic risk, will give additional 2.5 mg of IV vitamin K to further correct INR. Patient has remained hemodynamically stable and is subsequently stable for downgrade out of the ICU. Additional work-up deferred to gastroenterology. Subjective Pt had just woken up, denied current lightheadedness or dizziness. Denied chest pain, SOB or palps, N/V, any more bloody bowel movements or change to appetite. Review of Systems Review of Systems: All systems reviewed & are unremarkable except as noted in HPI & below Physical Exam Physical Exam: General: Alert, oriented. resting in bed. HEENT: NC/AT, PERRLA, EOMI. Chest: Nontender to palpation. CV: RRR, Normal s1, s2. Resp: Breath sounds coarse bilaterally, no increased effort of breathing. Abdomen: Soft, diffusely tender especially in the epigastrium. No guarding, no rebound. Extremities: Trace edema. Results & Data Vital Signs (Past 12 Hours) Vital Signs Temp Pulse Resp BP Pulse Ox 02/23/19 06:00 54 L 16 103/60 93 02/23/19 05:00 60 16 117/64 97 02/23/19 04:00 37 C 58 L 18 119/64 94 02/23/19 03:00 55 L 13 84/55 L 93 02/23/19 02:00 59 L 16 91/50 L 93 02/23/19 01:00 52 L 16 107/58 L 95 02/23/19 00:00 61 20 95/57 L 95 02/22/19 23:00 51 L 16 88/55 L 98 02/22/19 22:00 67 18 133/69 97 02/22/19 21:00 70 20 150/75 H 99 02/22/19 20:00 36.7 C 65 20 141/80 H 94 Laboratory Results Laboratory Results - last 24 hr 02/22/19 02/22/19 02/22/19 12:56 12:56 12:56 WBC 5.34 RBC 2.86 L Hgb 8.8 L Hct 25.2 L MCV 88.1 MCH 30.8 MCHC 34.9 RDW Std Deviation 49.2 H RDW Coeff of Joselito 15.3 H Plt Count 202 MPV 9.5 Immature Gran % (Auto) 0.4 Neut % (Auto) 64.6 Lymph % (Auto) 23.2 [place] % (Auto) 8.6 Eos % (Auto) 2.8 Baso % (Auto) 0.4 Immature Gran # (Auto) 0.02 Neut # (Auto) 3.45 Lymph # (Auto) 1.24 [place] # (Auto) 0.46 Eos # (Auto) 0.15 Baso # (Auto) 0.02 PT 43.4 H INR 4.7 H Sodium 136 Potassium 4.1 Chloride 106 Carbon Dioxide 24 Anion Gap 6.0 BUN 15 Creatinine 1.19 Est Cr Clr Drug Dosing 73.0 Est GFR ( Amer) 76.0 Est GFR (Non-Af Amer) 65.5 BUN/Creatinine Ratio 12.2 Glucose 112 H Calcium 8.3 L Phosphorus 2.5 Magnesium 2.0 Total Bilirubin 0.2 AST 19 ALT 22 Alkaline Phosphatase 66 Troponin I < 0.015 Total Protein 6.3 L Albumin 3.4 Globulin 2.9 Albumin/Globulin Ratio 1.2 Lipase 79 Nasal Screen MRSA (PCR) Blood Type Blood Type Recheck Antibody Screen Crossmatch 02/22/19 02/22/19 02/22/19 13:01 14:57 16:10 WBC RBC Hgb Hct MCV MCH MCHC RDW Std Deviation RDW Coeff of Joselito Plt Count MPV Immature Gran % (Auto) Neut % (Auto) Lymph % (Auto) [place] % (Auto) Eos % (Auto) Baso % (Auto) Immature Gran # (Auto) Neut # (Auto) Lymph # (Auto) [place] # (Auto) Eos # (Auto) Baso # (Auto) PT INR Sodium Potassium Chloride Carbon Dioxide Anion Gap BUN Creatinine Est Cr Clr Drug Dosing Est GFR ( Amer) Est GFR (Non-Af Amer) BUN/Creatinine Ratio Glucose Calcium Phosphorus Magnesium Total Bilirubin AST ALT Alkaline Phosphatase Troponin I Total Protein Albumin Globulin Albumin/Globulin Ratio Lipase Nasal Screen MRSA (PCR) Negative Blood Type O Positive Blood Type Recheck O Positive Antibody Screen NEGATIVE Crossmatch See Detail 02/22/19 02/22/19 02/22/19 16:15 21:56 21:56 WBC RBC Hgb 8.4 L 9.1 L Hct 24.6 L 26.4 L MCV MCH MCHC RDW Std Deviation RDW Coeff of Joselito Plt Count MPV Immature Gran % (Auto) Neut % (Auto) Lymph % (Auto) [place] % (Auto) Eos % (Auto) Baso % (Auto) Immature Gran # (Auto) Neut # (Auto) Lymph # (Auto) [place] # (Auto) Eos # (Auto) Baso # (Auto) PT 20.4 H INR 2.1 H Sodium Potassium Chloride Carbon Dioxide Anion Gap BUN Creatinine Est Cr Clr Drug Dosing Est GFR ( Amer) Est GFR (Non-Af Amer) BUN/Creatinine Ratio Glucose Calcium Phosphorus Magnesium Total Bilirubin AST ALT Alkaline Phosphatase Troponin I Total Protein Albumin Globulin Albumin/Globulin Ratio Lipase Nasal Screen MRSA (PCR) Blood Type Blood Type Recheck Antibody Screen Crossmatch 02/23/19 02/23/19 04:13 04:13 WBC 4.14 L RBC 3.03 L Hgb 9.3 L Hct 27.1 L MCV 89.4 MCH 30.7 MCHC 34.3 RDW Std Deviation 49.2 H RDW Coeff of Joselito 15.1 H Plt Count 179 MPV 9.8 Immature Gran % (Auto) Neut % (Auto) Lymph % (Auto) [place] % (Auto) Eos % (Auto) Baso % (Auto) Immature Gran # (Auto) Neut # (Auto) Lymph # (Auto) [place] # (Auto) Eos # (Auto) Baso # (Auto) PT INR Sodium 143 D Potassium 4.0 Chloride 113 H Carbon Dioxide 26 Anion Gap 4.0 BUN 10 D Creatinine 0.81 D Est Cr Clr Drug Dosing 114.8 Est GFR ( Amer) 111.2 Est GFR (Non-Af Amer) 95.9 BUN/Creatinine Ratio 12.8 Glucose 90 Calcium 7.9 L Phosphorus Magnesium Total Bilirubin AST ALT Alkaline Phosphatase Troponin I Total Protein Albumin Globulin Albumin/Globulin Ratio Lipase Nasal Screen MRSA (PCR) Blood Type Blood Type Recheck Antibody Screen Crossmatch Medications Administered Home Medications Alvesco 1 puff INHALATION BID 05/16/18 [History Confirmed 02/22/19] atorvastatin 40 mg PO HS 05/16/18 [History Confirmed 02/22/19] benztropine 0.5 mg PO BID 05/16/18 [History Confirmed 02/22/19] clopidogrel [Plavix] 75 mg PO DAILY 05/16/18 [History Confirmed 02/22/19] haloperidol decanoate 1.5 ml IM DIRECTED 05/16/18 [History Confirmed 02/07 01/26] lisinopril 2.5 mg PO DAILY 05/16/18 [History Confirmed 02/22/19] mesalamine 800 mg PO BID 05/16/18 [History Confirmed 02/22/19] nitroglycerin [Nitrostat] 0.4 mg SUBLINGUAL QID PRN 05/16/18 [History Confirmed 02/22/19] ranolazine [Ranexa] 1,000 mg PO BID 05/16/18 [History Confirmed 02/22/19] albuterol sulfate 2 puff INHALATION TID PRN 02/22/19 [History Confirmed 02/22/19] aspirin 81 mg PO DAILY 02/22/19 [History Confirmed 02/22/19] carvedilol 25 mg PO BID 02/22/19 [History Confirmed 02/22/19] celecoxib 100 mg PO DAILY 02/22/19 [History Confirmed 02/22/19] ferrous gluconate 324 mg PO DAILY 02/22/19 [History Confirmed 02/22/19] iron-folic acid-B [id number] [Nephron FA] 1 tab PO DAILY 02/22/19 [History Confirmed 02/22/19] isosorbide mononitrate 60 mg PO BID 02/22/19 [History Confirmed 02/22/19] nortriptyline 25 mg PO BID 02/22/19 [History Confirmed 02/22/19] olanzapine 10 mg PO HS 02/22/19 [History Confirmed 02/22/19] warfarin 3 mg PO DAILY 02/22/19 [History Confirmed 02/22/19] warfarin 4 mg PO DAILY 02/22/19 [History Confirmed 02/22/19] Active Medications Acetaminophen (Tylenol) 1,000 mg PO Q6H PRN PRN Reason: Moderate Pain Stop: 03/24/19 17:27 Last Admin: 02/22/19 21:21 Dose: 1,000 mg Documented by: Atorvastatin Calcium (Lipitor) 40 mg PO HS KARAN Stop: 03/24/19 20:59 Last Admin: 02/22/19 21:20 Dose: 40 mg Documented by: Benztropine Mesylate (Cogentin) 0.5 mg PO BID KARAN Stop: 03/24/19 20:59 Last Admin: 02/23/19 08:48 Dose: 0.5 mg Documented by: Carvedilol (Coreg) 12.5 mg PO BID KARAN Stop: 03/24/19 20:59 Last Admin: 02/23/19 08:48 Dose: 12.5 mg Documented by: Ferrous Gluconate (Ferrous Gluconate) 324 mg PO DAILY KARAN Stop: 03/25/19 08:59 Last Admin: 02/23/19 08:48 Dose: 324 mg Documented by: Sodium Chloride (Nss) 250 mls @ 15 mls/hr IV .[id number] PRN PRN Reason: For Transfusion Stop: 03/24/19 16:11 Miscellaneous (Icu Protocol For Hyperglycemia) 1 ea N/A PRN PRN; Protocol PRN Reason: Hyperglycemia Protocol Stop: 02/24/19 16:11 Miscellaneous (Order Awaiting Action) 1 ea N/A QS KARAN Stop: 03/25/19 00:00 Last Admin: 02/23/19 07:56 Dose: Not Given Documented by: Miscellaneous (Order Awaiting Action) 1 ea N/A QS KARAN Stop: 03/25/19 00:00 Last Admin: 02/23/19 07:57 Dose: Not Given Documented by: Nortriptyline HCl (Pamelor) 25 mg PO BID KARAN Stop: 03/24/19 20:59 Last Admin: 02/23/19 08:48 Dose: 25 mg Documented by: Olanzapine (Zyprexa) 10 mg PO HS KARAN Stop: 03/24/19 20:59 Last Admin: 02/22/19 21:21 Dose: 10 mg Documented by: Pantoprazole Sodium (Protonix) 40 mg PO BID KARAN Stop: 03/24/19 20:59 Last Admin: 02/23/19 08:48 Dose: 40 mg Documented by: Vitamin B Complex/Folic Acid (Nephrocaps) 1 cap PO DAILY KARAN Stop: 03/25/19 08:59 Last Admin: 02/23/19 08:48 Dose: 1 cap Documented by:
[2019-02-23] MEDS ORDERED: PHYTONADIONE 2.5 MG in SODIUM CHLORIDE 0.9% 50 ML IV STA (08:12)
--- NOTE | 2019-02-23 08:45 | Gastroenterology Progress Note ---
Date of Service February 23, 2019 Assessment & Plan (1) Crohns disease: 63 year old male with history of Crohn's on mesalamine, afib, cardiac stenting on ASA, Plavix, Coumadin who presents w/ lower abdominal cramping and rectal bleeding starting last evening. He denies any melena or prior coffee ground emesis or hematemesis. Anticoagulation was held, received IV vit K in the ED, transfused x 1 unit RBC. He has not had any further episodes of BRBPR PO PPI Trend H&H Monitor and document all GI output Transfuse PRN per primary service Check stool culture, and c.diff Ok to resume ASA Would recommend to hold coumadin and plavix at this time Appreciate recommendations from cardiology regarding length of dual therapy - There is consideration of stopping coumadin in addition to plavix Will keep NPO until able to discuss with attending this AM. Presentation more consistent with self limiting lower GI bleed resolving as AC was held. Thank you for allowing us to participate in the care of this patient. Please call with any acute changes, questions or concerns. Please see addendum below with additional recommendation from my supervising physician. (2) Rectal bleed: Supervising Physician Co-Signing Physician Notes I have personally seen and examined the patient with KIM Santoyo. Her note reflects my exam and findings. I agree with her impression and plan. H/H stable with no signs of continued active GI bleeding. Most c/w bleeding from over anticoagulation. Out patient endoscopy. Juan Mohr M.D. Subjective Pt was seen and evaluated, chart reviewed. Admitted to the ICU last evening for hypotension S/P RBC x 1 unit Clinically feeling well ASA, coumadin, plavix held INR was reversed No further episodes of rectal bleeding or bowel movement Suggests last BM was around 1pm yesterday This AM denies abd pain No UGI symptoms Is NPO Review of Systems Constitutional: no fever, no chills and no fatigue Respiratory: no cough, no dyspnea and no wheezing Cardiovascular: no chest pain, no syncope and no claudication Gastrointestinal: no abdominal pain, no early satiety, no nausea, no coffee ground emesis, no hematemesis, no diarrhea/loose stools, no blood in stools and no melena Physical Exam Constitutional: WD/WN, vitals as above no acute distress Neck: trachea midline Respiratory: normal respiratory effort, lungs clear to auscultation Cardiovascular: Rate/Rhythm: regular rate and regular rhythm Gastrointestinal (Abdomen): Inspection/Auscultation: normal bowel sounds Percussion/Palpation: + abdomen tender (lower abd pain reported w/ palpation) and abdomen soft; no guarding, abdomen not rigid and no abdominal mass Skin: no rashes, warm and dry Results & Data Vital Signs (Past 12 Hours) Vital Signs Temp Pulse Resp BP Pulse Ox 02/23/19 06:00 54 L 16 103/60 93 02/23/19 05:00 60 16 117/64 97 02/23/19 04:00 37 C 58 L 18 119/64 94 02/23/19 03:00 55 L 13 84/55 L 93 02/23/19 02:00 59 L 16 91/50 L 93 02/23/19 01:00 52 L 16 107/58 L 95 02/23/19 00:00 61 20 95/57 L 95 02/22/19 23:00 51 L 16 88/55 L 98 02/22/19 22:00 67 18 133/69 97 02/22/19 21:00 70 20 150/75 H 99 Laboratory Results 02/23/19 02/23/19 02/22/19 Range/Units 04:13 04:13 21:56 WBC 4.14 L (4.8-10.8) K/uL RBC 3.03 L (4.7-6.1) M/uL Hgb 9.3 L (14.0-18.0) g/dL Hct 27.1 L (42-52) % MCV 89.4 (80-100) fL MCH 30.7 (25-34) pg MCHC 34.3 (32-36) g/dL RDW Std Deviation 49.2 H (36.4-46.3) fL RDW Coeff of Joselito 15.1 H (11.5-14.5) % Plt Count 179 (130-400) K/uL MPV 9.8 (7.4-10.4) fL Immature Gran % (Auto) % Neut % (Auto) % Lymph % (Auto) % [place] % (Auto) % Eos % (Auto) % Baso % (Auto) % Immature Gran # (Auto) (0.00-0.02) K/uL Neut # (Auto) (1.4-6.5) K/uL Lymph # (Auto) (1.2-3.4) K/uL [place] # (Auto) (0.11-0.59) K/uL Eos # (Auto) (0-0.5) K/uL Baso # (Auto) (0-0.2) K/uL PT 20.4 H (9.0-12.0) Seconds INR 2.1 H (0.9-1.1) Sodium 143 D (136-145) mmol/L Potassium 4.0 (3.5-5.1) mmol/L Chloride 113 H (98-107) mmol/L Carbon Dioxide 26 (21-32) mmol/L Anion Gap 4.0 (3-11) BUN 10 D (7-18) mg/dl Creatinine 0.81 D (0.6-1.4) mg/dl Est Cr Clr Drug Dosing 114.8 ml/min Est GFR ( Amer) 111.2 Est GFR (Non-Af Amer) 95.9 BUN/Creatinine Ratio 12.8 (10-20) Glucose 90 (70-99) mg/dl Calcium 7.9 L (8.5-10.1) mg/dl Phosphorus (2.5-4.9) mg/dl Magnesium (1.8-2.4) mg/dl Total Bilirubin (0.2-1) mg/dl AST (15-37) U/L ALT (12-78) U/L Alkaline Phosphatase (45-117) U/L Troponin I (0-0.045) ng/ml Total Protein (6.4-8.2) gm/dl Albumin (3.4-5.0) gm/dl Globulin (2.5-4.0) gm/dl Albumin/Globulin Ratio (0.9-2) Lipase (73-393) U/L Nasal Screen MRSA (PCR) (Negative) Blood Type Blood Type Recheck Antibody Screen Crossmatch 02/22/19 02/22/19 02/22/19 Range/Units 21:56 16:15 16:10 WBC (4.8-10.8) K/uL RBC (4.7-6.1) M/uL Hgb 9.1 L 8.4 L (14.0-18.0) g/dL Hct 26.4 L 24.6 L (42-52) % MCV (80-100) fL MCH (25-34) pg MCHC (32-36) g/dL RDW Std Deviation (36.4-46.3) fL RDW Coeff of Joselito (11.5-14.5) % Plt Count (130-400) K/uL MPV (7.4-10.4) fL Immature Gran % (Auto) % Neut % (Auto) % Lymph % (Auto) % [place] % (Auto) % Eos % (Auto) % Baso % (Auto) % Immature Gran # (Auto) (0.00-0.02) K/uL Neut # (Auto) (1.4-6.5) K/uL Lymph # (Auto) (1.2-3.4) K/uL [place] # (Auto) (0.11-0.59) K/uL Eos # (Auto) (0-0.5) K/uL Baso # (Auto) (0-0.2) K/uL PT (9.0-12.0) Seconds INR (0.9-1.1) Sodium (136-145) mmol/L Potassium (3.5-5.1) mmol/L Chloride (98-107) mmol/L Carbon Dioxide (21-32) mmol/L Anion Gap (3-11) BUN (7-18) mg/dl Creatinine (0.6-1.4) mg/dl Est Cr Clr Drug Dosing ml/min Est GFR ( Amer) Est GFR (Non-Af Amer) BUN/Creatinine Ratio (10-20) Glucose (70-99) mg/dl Calcium (8.5-10.1) mg/dl Phosphorus (2.5-4.9) mg/dl Magnesium (1.8-2.4) mg/dl Total Bilirubin (0.2-1) mg/dl AST (15-37) U/L ALT (12-78) U/L Alkaline Phosphatase (45-117) U/L Troponin I (0-0.045) ng/ml Total Protein (6.4-8.2) gm/dl Albumin (3.4-5.0) gm/dl Globulin (2.5-4.0) gm/dl Albumin/Globulin Ratio (0.9-2) Lipase (73-393) U/L Nasal Screen MRSA (PCR) Negative (Negative) Blood Type Blood Type Recheck Antibody Screen Crossmatch 02/22/19 02/22/19 02/22/19 Range/Units 14:57 13:01 12:56 WBC (4.8-10.8) K/uL RBC (4.7-6.1) M/uL Hgb (14.0-18.0) g/dL Hct (42-52) % MCV (80-100) fL MCH (25-34) pg MCHC (32-36) g/dL RDW Std Deviation (36.4-46.3) fL RDW Coeff of Joselito (11.5-14.5) % Plt Count (130-400) K/uL MPV (7.4-10.4) fL Immature Gran % (Auto) % Neut % (Auto) % Lymph % (Auto) % [place] % (Auto) % Eos % (Auto) % Baso % (Auto) % Immature Gran # (Auto) (0.00-0.02) K/uL Neut # (Auto) (1.4-6.5) K/uL Lymph # (Auto) (1.2-3.4) K/uL [place] # (Auto) (0.11-0.59) K/uL Eos # (Auto) (0-0.5) K/uL Baso # (Auto) (0-0.2) K/uL PT (9.0-12.0) Seconds INR (0.9-1.1) Sodium 136 (136-145) mmol/L Potassium 4.1 (3.5-5.1) mmol/L Chloride 106 (98-107) mmol/L Carbon Dioxide 24 (21-32) mmol/L Anion Gap 6.0 (3-11) BUN 15 (7-18) mg/dl Creatinine 1.19 (0.6-1.4) mg/dl Est Cr Clr Drug Dosing 73.0 ml/min Est GFR ( Amer) 76.0 Est GFR (Non-Af Amer) 65.5 BUN/Creatinine Ratio 12.2 (10-20) Glucose 112 H (70-99) mg/dl Calcium 8.3 L (8.5-10.1) mg/dl Phosphorus 2.5 (2.5-4.9) mg/dl Magnesium 2.0 (1.8-2.4) mg/dl Total Bilirubin 0.2 (0.2-1) mg/dl AST 19 (15-37) U/L ALT 22 (12-78) U/L Alkaline Phosphatase 66 (45-117) U/L Troponin I < 0.015 (0-0.045) ng/ml Total Protein 6.3 L (6.4-8.2) gm/dl Albumin 3.4 (3.4-5.0) gm/dl Globulin 2.9 (2.5-4.0) gm/dl Albumin/Globulin Ratio 1.2 (0.9-2) Lipase 79 (73-393) U/L Nasal Screen MRSA (PCR) (Negative) Blood Type O Positive Blood Type Recheck O Positive Antibody Screen NEGATIVE Crossmatch See Detail 02/22/19 02/22/19 Range/Units 12:56 12:56 WBC 5.34 (4.8-10.8) K/uL RBC 2.86 L (4.7-6.1) M/uL Hgb 8.8 L (14.0-18.0) g/dL Hct 25.2 L (42-52) % MCV 88.1 (80-100) fL MCH 30.8 (25-34) pg MCHC 34.9 (32-36) g/dL RDW Std Deviation 49.2 H (36.4-46.3) fL RDW Coeff of Joselito 15.3 H (11.5-14.5) % Plt Count 202 (130-400) K/uL MPV 9.5 (7.4-10.4) fL Immature Gran % (Auto) 0.4 % Neut % (Auto) 64.6 % Lymph % (Auto) 23.2 % [place] % (Auto) 8.6 % Eos % (Auto) 2.8 % Baso % (Auto) 0.4 % Immature Gran # (Auto) 0.02 (0.00-0.02) K/uL Neut # (Auto) 3.45 (1.4-6.5) K/uL Lymph # (Auto) 1.24 (1.2-3.4) K/uL [place] # (Auto) 0.46 (0.11-0.59) K/uL Eos # (Auto) 0.15 (0-0.5) K/uL Baso # (Auto) 0.02 (0-0.2) K/uL PT 43.4 H (9.0-12.0) Seconds INR 4.7 H (0.9-1.1) Sodium (136-145) mmol/L Potassium (3.5-5.1) mmol/L Chloride (98-107) mmol/L Carbon Dioxide (21-32) mmol/L Anion Gap (3-11) BUN (7-18) mg/dl Creatinine (0.6-1.4) mg/dl Est Cr Clr Drug Dosing ml/min Est GFR ( Amer) Est GFR (Non-Af Amer) BUN/Creatinine Ratio (10-20) Glucose (70-99) mg/dl Calcium (8.5-10.1) mg/dl Phosphorus (2.5-4.9) mg/dl Magnesium (1.8-2.4) mg/dl Total Bilirubin (0.2-1) mg/dl AST (15-37) U/L ALT (12-78) U/L Alkaline Phosphatase (45-117) U/L Troponin I (0-0.045) ng/ml Total Protein (6.4-8.2) gm/dl Albumin (3.4-5.0) gm/dl Globulin (2.5-4.0) gm/dl Albumin/Globulin Ratio (0.9-2) Lipase (73-393) U/L Nasal Screen MRSA (PCR) (Negative) Blood Type Blood Type Recheck Antibody Screen Crossmatch
[2019-02-23] MEDS: CARVEDILOL 12.5 MG TAB PO SCH ×2 (08:48→21:34)
[2019-02-23] MEDS: BENZTROPINE MESYLATE 0.5 MG TAB PO SCH ×2 (08:48→21:35)
[2019-02-23] MEDS: PANTOprazole 40 MG TAB PO SCH ×2 (08:48→21:34)
[2019-02-23] MEDS: NORTRIPTYLINE HCL 25 MG CAP PO SCH ×2 (08:48→21:34)
[2019-02-23] MEDS: FERROUS GLUCONATE 324 MG TAB PO SCH (08:48)
[2019-02-23] MEDS: NEPHROCAPS PO SCH (08:48)
[2019-02-23 10:12] LABS: Hematocrit (blood only) 28.2 % (42-52); Hemoglobin 9.6 g/dL (14.0-18.0)
--- NOTE | 2019-02-23 11:27 | Cardiology Progress Note ---
Date of Service February 23, 2019 Assessment & Plan (1) GI bleed: Hemoglobin stable. Vital signs stable. Agree with transfer to telemetry unit. Aspirin, clopidogrel, and Coumadin held on admission. As previously noted, the patient is already completed over 1 year of dual antiplatelet therapy status post drug-eluting stent to the LAD in October,. I do not believe ongoing clopidogrel therapy is necessary, and will proceed with aspirin 81 mg daily rather than aspirin plus clopidogrel. He has a history of paroxysmal atrial fibrillation. He has been in sinus rhythm at the time of his visit here last fall and again this admission. Given bleeding problems, at this point, I recommend that we at least discontinue Coumadin for the short-term, and perhaps reassess the benefits and risks prior to placing him back on Coumadin. (2) Ischemic cardiomyopathy: The patient's outpatient dose of carvedilol 25 mg twice daily was reduced to 12.5 mg twice daily on admission due to concerns of relative hypotension. Continue coreg 12.5 mg BID today, with plans to likely increase back to 25 mg tomorrow. Volume status stable. (3) Atrial fibrillation: As above. Subjective Chief complaint: Follow-up history of ischemic cardiomyopathy, GI bleed Subjective: Patient says this morning in ICU room 109. Denies any chest discomfort or shortness of breath. No additional blood per rectum overnight last night or thus far today. Telemetry reveals stable sinus bradycardia in the 55 bpm range. Blood pressure is stable. Review of Systems Review of Systems: All systems reviewed & are unremarkable except as noted in HPI & below Physical Exam Physical Exam: Temp Pulse Resp BP Pulse Ox 37 C 55 L 12 136/63 96 02/23/19 04:00 02/23/19 09:15 02/23/19 09:15 02/23/19 09:15 02/23/19 09:15 Constitutional: WD/WN, vitals as above Respiratory: normal respiratory effort, lungs clear to auscultation Cardiovascular: RRR, no murmur, no edema Heart Sounds: no murmur Vessels: no JVD Extremities: no edema Gastrointestinal (Abdomen): normal bowel sounds, soft, nontender, no hepatosplenomegaly Neurologic: PERRL, EOMI, accommodation nl, no face palsy, no dysarthria Results & Data Vital Signs (Past 12 Hours) Vital Signs Temp Pulse Pulse Resp BP BP Pulse Ox 02/23/19 09:15 55 L 12 136/63 96 02/23/19 09:01 62 23 112/50 L 92 02/23/19 09:00 61 14 92 02/23/19 08:45 63 12 102/57 L 93 02/23/19 08:30 60 12 105/61 93 02/23/19 08:15 61 25 H 124/58 L 93 02/23/19 08:01 67 17 94 02/23/19 08:00 67 15 115/65 94 02/23/19 07:45 69 15 117/64 94 02/23/19 07:31 60 11 L 94 02/23/19 07:30 62 16 104/66 94 02/23/19 07:15 63 15 106/60 94 02/23/19 07:01 60 12 93 02/23/19 07:00 55 L 12 108/54 L 93 02/23/19 06:46 55 L 14 92 02/23/19 06:45 58 L 13 104/54 L 92 02/23/19 06:00 54 L 16 103/60 93 02/23/19 05:00 60 16 117/64 97 02/23/19 04:00 37 C 58 L 18 119/64 94 02/23/19 03:00 55 L 13 84/55 L 93 02/23/19 02:00 59 L 16 91/50 L 93 02/23/19 01:00 52 L 16 107/58 L 95 02/23/19 00:00 61 20 95/57 L 95 Laboratory Results Cardiac Enzymes 02/22/19 Range/Units 12:56 AST 19 (15-37) U/L Troponin I < 0.015 (0-0.045) ng/ml Coagulation 02/22/19 02/22/19 Range/Units 12:56 21:56 PT 43.4 H 20.4 H (9.0-12.0) Seconds CBC 02/22/19 02/22/19 02/22/19 Range/Units 12:56 16:15 21:56 WBC 5.34 (4.8-10.8) K/uL RBC 2.86 L (4.7-6.1) M/uL Hgb 8.8 L 8.4 L 9.1 L (14.0-18.0) g/dL Hct 25.2 L 24.6 L 26.4 L (42-52) % Plt Count 202 (130-400) K/uL Neut # (Auto) 3.45 (1.4-6.5) K/uL Lymph # (Auto) 1.24 (1.2-3.4) K/uL [place] # (Auto) 0.46 (0.11-0.59) K/uL Eos # (Auto) 0.15 (0-0.5) K/uL Baso # (Auto) 0.02 (0-0.2) K/uL 02/23/19 02/23/19 Range/Units 04:13 09:59 WBC 4.14 L (4.8-10.8) K/uL RBC 3.03 L (4.7-6.1) M/uL Hgb 9.3 L 9.6 L (14.0-18.0) g/dL Hct 27.1 L 28.2 L (42-52) % Plt Count 179 (130-400) K/uL Neut # (Auto) (1.4-6.5) K/uL Lymph # (Auto) (1.2-3.4) K/uL [place] # (Auto) (0.11-0.59) K/uL Eos # (Auto) (0-0.5) K/uL Baso # (Auto) (0-0.2) K/uL Comprehensive Metabolic Panel 02/22/19 02/23/19 Range/Units 12:56 04:13 Sodium 136 143 D (136-145) mmol/L Potassium 4.1 4.0 (3.5-5.1) mmol/L Chloride 106 113 H (98-107) mmol/L Carbon Dioxide 24 26 (21-32) mmol/L BUN 15 10 D (7-18) mg/dl Creatinine 1.19 0.81 D (0.6-1.4) mg/dl Glucose 112 H 90 (70-99) mg/dl Calcium 8.3 L 7.9 L (8.5-10.1) mg/dl AST 19 (15-37) U/L ALT 22 (12-78) U/L Alkaline Phosphatase 66 (45-117) U/L Total Protein 6.3 L (6.4-8.2) gm/dl Albumin 3.4 (3.4-5.0) gm/dl Intake and Output 02/22/19 02/23/19 02/23/19 22:59 06:59 14:59 Intake Total 1370.25 / 2670.25 300 / 2670.25 300.25 / 300.25 Output Total 1700 / 3100 1400 / 3100 Balance -329.75 / -429.75 -1100 / -429.75 300.25 / 300.25 Intake: IV 50.25 / 1050.25 300.25 / 300.25 Aqua-Mephyton 2.5 mg In Nss 50 50.25 / 50.25 50.25 / 50.25 ml @ 100.5 mls/hr IV NOW STA Rx #:[id number] Nss 250 ml @ 15 mls/hr IV . 250 / 250 [id number] PRN Rx#:[id number] Oral 1010 / 1310 300 / 1310 Intake (Blood Product) Amt 310 / 310 Packed Cells, Leukoreduced 310 / 310 Unit [id number] Output: Urine 1700 / 3100 1400 / 3100 Other: Weight 95.4 kg 95 kg 95 kg Patient Weight 02/24/19 06:59 Weight 95 kg Diagnostic Findings INR repeated 02/22/2019 at 21: 56 was 2.1 down from 4.7. Medications Administered Current Inpatient Medications Acetaminophen (Tylenol) 1,000 mg PO Q6H PRN PRN Reason: Moderate Pain Stop: 03/24/19 17:27 Last Admin: 02/22/19 21:21 Dose: 1,000 mg Documented by: Aspirin (Ecotrin Ectab) 81 mg PO QAM [facility] Stop: 03/25/19 11:29 Atorvastatin Calcium (Lipitor) 40 mg PO HS [facility] Stop: 03/24/19 20:59 Last Admin: 02/22/19 21:20 Dose: 40 mg Documented by: Benztropine Mesylate (Cogentin) 0.5 mg PO BID [facility] Stop: 03/24/19 20:59 Last Admin: 02/23/19 08:48 Dose: 0.5 mg Documented by: Carvedilol (Coreg) 12.5 mg PO BID [facility] Stop: 03/24/19 20:59 Last Admin: 02/23/19 08:48 Dose: 12.5 mg Documented by: Ferrous Gluconate (Ferrous Gluconate) 324 mg PO DAILY [facility] Stop: 03/25/19 08:59 Last Admin: 02/23/19 08:48 Dose: 324 mg Documented by: Sodium Chloride (Nss) 250 mls @ 15 mls/hr IV .[id number] PRN PRN Reason: For Transfusion Stop: 03/24/19 16:11 Miscellaneous (Order Awaiting Action) 1 ea N/A QS KARAN Stop: 03/25/19 00:00 Last Admin: 02/23/19 07:56 Dose: Not Given Documented by: Miscellaneous (Order Awaiting Action) 1 ea N/A QS KARAN Stop: 03/25/19 00:00 Last Admin: 02/23/19 07:57 Dose: Not Given Documented by: Nortriptyline HCl (Pamelor) 25 mg PO BID KARAN Stop: 03/24/19 20:59 Last Admin: 02/23/19 08:48 Dose: 25 mg Documented by: Olanzapine (Zyprexa) 10 mg PO HS KARAN Stop: 03/24/19 20:59 Last Admin: 02/22/19 21:21 Dose: 10 mg Documented by: Pantoprazole Sodium (Protonix) 40 mg PO BID KARAN Stop: 03/24/19 20:59 Last Admin: 02/23/19 08:48 Dose: 40 mg Documented by: Vitamin B Complex/Folic Acid (Nephrocaps) 1 cap PO DAILY KARAN Stop: 03/25/19 08:59 Last Admin: 02/23/19 08:48 Dose: 1 cap Documented by: (1) GI bleed GI bleed type/associated pathology: unspecified gastrointestinal hemorrhage type Qualified Code(s): K92.2 - Gastrointestinal hemorrhage, unspecified
[2019-02-23] MEDS: ASPIRIN 81 MG ECTAB PO SCH (13:48)
--- NOTE | 2019-02-23 19:56 | Hospitalist Progress Note ---
Date of Service February 23, 2019 Assessment & Plan (1) Lower GI bleed: Present from [facility] for bright red bleeding per rectum t Hemoglobin on admission 8.8 INR 4.7 and received vit K on admission CT abd/pelvis showed no acute finding S/P 1 unit PRBC yesterday Hemoglobin today 9.6 Continue to hold Plavix, Coumadin Aspirin resume GI on board No plan for inpatient scope, recommended outpatient scope Case discussed with GI and OK to start on diet (2) Crohns disease: CT abd/pelvis showed no acute finding On mesalamine (3) Presence of combination internal cardiac defibrillator (ICD) and pacemaker: (4) Ischemic cardiomyopathy: (5) Coronary artery disease: S/P RIGO to LAD on 10/25 Denies any chest pain cardiology on board recommended to d/c plavix carvedilol decreased to 12.5 mg BID Hold isosorbide, lisinopril, Ranexa due to low BP Continue aspirin Stable (6) Atrial fibrillation: Currently in NSR Rate control on carvedilol 12.5 mg cardiology recommended to discontinued Coumadin for the short-term due to GI bleed Continue monitor (7) COPD (chronic obstructive pulmonary disease): No signs of acute exacerbation Continue home inhalers (8) Mood disorder: Continue home meds including olanzapine, benztropine, nortriptyline (9) DVT prophylaxis: INR 2.1 today Subjective Pt was seen and examined Lying in bed with no distress Pt said that he feels fine He said that last time he had a BM was yesterday He said that he is hungry He asked to be discharged today Denies any chest pain, palpitation. dizziness and SOB Physical Exam Physical Exam: General- No acute distress Head- atraumatic Eyes- PERRL, EOMI, ENT- oropharynx clear Neck- supple, no JVD Lungs- clear to auscultation Heart- regular rhythm; no murmur Abdomen- normal bowel sounds, soft, nontender Extremities- no calf tenderness Neuro- alert, oriented x 3; PERRL, EOMI; no facial palsy; no dysarthria Skin- warm & dry Results & Data Vital Signs (Past 12 Hours) Vital Signs Temp Pulse Pulse Resp BP BP Pulse Ox 02/23/19 11:29 36.5 C 62 20 132/65 97 02/23/19 09:15 55 L 12 136/63 96 02/23/19 09:01 62 23 112/50 L 92 02/23/19 09:00 61 14 92 02/23/19 08:45 63 12 102/57 L 93 02/23/19 08:30 60 12 105/61 93 02/23/19 08:15 61 25 H 124/58 L 93 02/23/19 08:01 67 17 94 02/23/19 08:00 67 15 115/65 94 02/23/19 07:45 69 15 117/64 94
[2019-02-23] MEDS: ATORVASTATIN 40 MG TAB PO SCH (21:34)
[2019-02-23] MEDS: OLANZapine 10 MG TAB PO SCH (21:34)
[2019-02-24] MEDS: [UNRECOGNIZED DRUG - OTHER] SCH ×2 (01:09→09:38)
[2019-02-24] MEDS: ACETAMINOPHEN 500 MG TAB PO PRN (06:09)
[2019-02-24 08:23] LABS: Hemoglobin 9.8 g/dL (14.0-18.0); Mean Corpuscular Hgb Conc 33.8 g/dL (32-36); Mean Corpuscular Volume 91.2 fL (80-100); Mean Platelet Volume 9.9 fL (7.4-10.4); Platelet Count 200 K/uL (130-400); RDW Coefficient of Variation 15.1 % (11.5-14.5); RDW Standard Deviation 50.2 fL (36.4-46.3); Red Blood Count 3.18 M/uL (4.7-6.1); White Blood Count 5.66 K/uL (4.8-10.8)
[2019-02-24 08:37] LABS: INR 1.1 (0.9-1.1); Prothrombin Time 11.3 Seconds (9.0-12.0)
[2019-02-24] MEDS: BENZTROPINE MESYLATE 0.5 MG TAB PO SCH (09:25)
[2019-02-24] MEDS: NORTRIPTYLINE HCL 25 MG CAP PO SCH (09:26)
[2019-02-24] MEDS: PANTOprazole 40 MG TAB PO SCH (09:26)
[2019-02-24] MEDS: FERROUS GLUCONATE 324 MG TAB PO SCH (09:26)
[2019-02-24] MEDS: NEPHROCAPS PO SCH (09:26)
[2019-02-24] MEDS: ASPIRIN 81 MG ECTAB PO SCH (09:27)
[2019-02-24] MEDS: CARVEDILOL 12.5 MG TAB PO SCH (09:39)
--- NOTE | 2019-02-24 12:35 | Hospitalist Progress Note ---
Date of Service February 24, 2019 Assessment & Plan (1) Lower GI bleed: Present from [facility] for bright red bleeding per rectum t Hemoglobin on admission 8.8 INR 4.7 and received vit K on admission CT abd/pelvis showed no acute finding S/P 1 unit PRBC during hospital course Hemoglobin today 9.8 Continue to hold Plavix, Coumadin Aspirin resumed GI on board Tolerated diet Continue PPI BID for now No plan for inpatient scope, recommended outpatient scope Ok from GI standpoint to discharge (2) Crohns disease: CT abd/pelvis showed no acute finding On mesalamine Stable (3) Presence of combination internal cardiac defibrillator (ICD) and pacemaker: (4) Ischemic cardiomyopathy: (5) Coronary artery disease: S/P RIGO to LAD on 10/25 Denies any chest pain cardiology on board recommended to d/c plavix Case discussed with cardiology and recommended to discharge on home dose carvedilol Will resume isosorbide, lisinopril, Ranexa on discharge since BP improves Monitor BP Plavix discontinued Continue aspirin Stable (6) Atrial fibrillation: Currently in NSR Rate control on carvedilol and Isosorbide mononitrate cardiology recommended to discontinued Coumadin for the short-term due to GI bleed If pt has another episode of Afib, will restart coumadin Continue monitor (7) COPD (chronic obstructive pulmonary disease): No signs of acute exacerbation Continue home inhalers (8) Mood disorder: Continue home meds including olanzapine, benztropine, nortriptyline (9) DVT prophylaxis: INR 1.1 today SCD due to recent GI bleeding Disposition Will discharge to [facility] today Case discussed with Dr. Whatley at [facility] Subjective Pt was seen and examined Lying in bed with no distress Pt said that he feels fine He said that he has not had a bloody BM since yesterday He said that he tolerated his diet Denies any chest pain, palpitation, dizziness and SOB Physical Exam Physical Exam: General- No acute distress Head- atraumatic Eyes- PERRL, EOMI, ENT- oropharynx clear Neck- supple, no JVD Lungs- + Rhonchi Heart- regular rhythm; no murmur Abdomen- normal bowel sounds, soft, nontender Extremities- no calf tenderness Neuro- alert, oriented x 3; PERRL, EOMI; no facial palsy; no dysarthria Skin- warm & dry Results & Data Vital Signs (Past 12 Hours) Vital Signs Temp Pulse Pulse Resp BP Pulse Ox 02/24/19 07:46 36.7 C 54 L 19 149/72 H 97 02/24/19 03:57 36.6 C 47 L 20 115/75 98 02/24/19 00:45 78
--- NOTE | 2019-02-24 13:16 | Discharge Summary ---
Date of Service February 24, 2019 Admission HPI Per Admitting Provider 63-year-old male who presents to the ED with bright red bleeding per rectum. Patient reports his symptoms began last evening. He reports 7 episodes of diarrhea with large amounts of bright red blood. He reports associated left lower quadrant abdominal cramping. Patient reports underlying history of Crohn's and reports this is similar to his chronic abdominal pain from Crohn's. No nausea or vomiting. He reports he has felt lightheaded and dizzy but denies any syncopal event. No fevers or chills. He denies chest pain shortness of breath. No urinary symptoms. Patient is on aspirin and Plavix (A/P RIGO to LAD 10/2017) and Coumadin (paroxysmal atrial fibrillation). He denies heavy NSAID use however is on Celebrex daily. In the ER, Hgb 8.8, INR 4.7. BPs have been borderline low in the low to mid 90s. He was given IVF, IV vitamin K 2.5 mg, ordered 1 unit PRBC. Admission Exam Per Admitting Provider Constitutional: WD/WN, vitals as above Eyes: PERRL, conjunctivae normal, anicteric sclerae ENMT: external ear and nose normal, oropharynx normal Respiratory: normal respiratory effort; no respiratory distress Ausc ultation: no wheezes Coarse breath sounds bilaterally Cardiovascular: regular rate and regular rhythm Vessels: normal peripheral pulses Extremities: no edema Gastrointestinal Inspection/Auscultation: normal bowel sounds Percussion/Palpation: + abdomen tender (LLQ) and abdomen soft; no hepatosplenomegaly Musculoskeletal: no cyanosis or clubbing, extremities motor strength 5/5 Skin: no rashes, warm and dry Neurologic: PERRL, EOMI, accommodation nl, no face palsy, no dysarthria Psychiatric: A+Ox3, euthymic affect Principal Diagnosis Lower GI Bleed Crohn's disease Presence of combination internal cardiac defibrillator (ICD) and pacemaker Ischemic cardiomyopathy Coronary artery disease COPD (chronic obstructive pulmonary disease) Mood Disorder Discharge Exam General- No acute distress Head- atraumatic Eyes- PERRL, EOMI, ENT- oropharynx clear Neck- supple, no JVD Lungs- + Rhonchi Heart- regular rhythm; no murmur Abdomen- normal bowel sounds, soft, nontender Extremities- no calf tenderness Neuro- alert, oriented x 3; PERRL, EOMI; no facial palsy; no dysarthria Skin- warm & dry Discharge Data Allergies Allergy/AdvReac Type Severity Reaction Status Date / Time Penicillins AdvReac Intermediate "I get Verified 02/22/19 15:11 sick." Sulfa (Sulfonamide AdvReac Intermediate "I get Verified 02/22/19 15:11 Antibiotics) sick." OLEORESIN CAPSICUM Allergy Unknown UNKNOWN Uncoded 02/22/19 15:11 Consultations 02/22/19 14:48 ED Decision to Admit Stat 02/22/19 16:12 Consult Cardiology Routine Consult Case Management - Discharge Planning Routine Consult Gastroenterology Routine Consult [employer]idential [employer] Consultant Routine Ordered Studies 02/22/19 13:39 CT abd pelvis IV con only Stat CT abd pelvis IV con only CLINICAL HISTORY: hematochezia, abd pain, Crohn's COMPARISON STUDY: None. TECHNIQUE: The patient was scanned in a dynamic helical fashion during in travenous administration of 92 cc of Optiray 320. A dose lowering technique was utilized adhering to the principles of ALARA. CT DOSE: FINDINGS: Lower chest: There is borderline distal esophageal wall thickening. There is a small pericardial effusion. There are dependent atelectatic changes. There are no pleural effusions. Liver: The contrast-enhanced liver is normal in size, contour, and attenuation. There is no intrahepatic biliary ductal dilatation. The hepatic veins and portal veins are patent. Gallbladder: Unremarkable. Spleen: Normal in size and attenuation. Pancreas: Unremarkable. Adrenal glands: Unremarkable. Kidneys: There is a to small to characterize 8 mm right renal hypodense lesion, likely representing a cyst. There is no hydronephrosis. Bowel: There are no transition zones indicate bowel obstruction. There is no evidence of acute diverticulitis. There is no evidence of acute appendicitis. Peritoneum: There is no intraperitoneal free air or abdominal ascites. There are postsurgical changes of anterior abdominal wall hernia repair. There is a neck show calcification within the anterior central abdomen, likely secondary to a prior focus of fat necrosis Vasculature: The abdominal aorta is normal in course and caliber. Adenopathy: None. Pelvic viscera: The bladder, and pelvic viscera are unremarkable. Skeletal structures: No destructive osseous lesions are seen. IMPRESSION: 1. No acute intra-abdominal or pelvic findings. 2. No evidence of bowel obstruction. No evidence of free air. 3. Normal appendix. No evidence of acute diverticulitis. 4. Borderline distal esophageal wall thickening Electronically signed by: Mateo Ocampo M.D. 02/22/2019 2:25 PM Dictated: 02/22/19 1419 Transcribed: 02/22/19 1419 SINGLE VIEW CHEST CLINICAL HISTORY: Atypical chest pain. FINDINGS: An AP, portable, upright chest radiograph is compared to chest x-ray and chest CT dated 05/16/2018. The examination is degraded by portable technique and patient rotation. A single lead cardiac AICD is unchanged in position and partially obscures the left lower chest. The heart is enlarged and there is atherosclerotic calcification of the thoracic aorta. The pulmonary vasculature is noncongested. Emphysema and chronic interstitial thickening are similar to previous. There is mild bibasilar atelectasis. No airspace consolidation or large pleural effusion is identified. No pneumothorax is seen. The skeletal structures are osteopenic. There are healed bilateral rib fractures. IMPRESSION: 1. Cardiomegaly and AICD. There is no radiographic evidence of congestive failure. 2. Emphysema. 3. No airspace consolidation or large pleural effusion is identified. Electronically signed by: Vincenzo Lion M.D. 02/22/2019 1:04 PM Dictated: 02/22/19 1303 Transcribed: 02/22/19 1303 Hospital Course (1) Lower GI bleed: Present from [facility] for bright red bleeding per rectum t Hemoglobin on admission 8.8 INR 4.7 and received vit K on admission CT abd/pelvis showed no acute finding S/P 1 unit PRBC during hospital course Hemoglobin today 9.8 Continue to hold Plavix, Coumadin Aspirin resumed GI on board Tolerated diet Continue PPI BID for now No plan for inpatient scope, recommended outpatient scope Ok from GI standpoint to discharge (2) Crohns disease: CT abd/pelvis showed no acute finding On mesalamine Stable (3) Presence of combination internal cardiac defibrillator (ICD) and pacemaker: (4) Ischemic cardiomyopathy: (5) Coronary artery disease: S/P RIGO to LAD on 10/25 Denies any chest pain cardiology on board recommended to d/c plavix Case discussed with cardiology and recommended to discharge on home dose carvedilol Will resume isosorbide, lisinopril, Ranexa on discharge since BP improves Monitor BP Plavix discontinued Continue aspirin Stable (6) Atrial fibrillation: Currently in NSR Rate control on carvedilol and Isosorbide mononitrate cardiology recommended to discontinued Coumadin for the short-term due to GI bleed If pt has another episode of Afib, will restart coumadin Continue monitor (7) COPD (chronic obstructive pulmonary disease): No signs of acute exacerbation Continue home inhalers (8) Mood disorder: Continue home meds including olanzapine, benztropine, nortriptyline (9) DVT prophylaxis: INR 1.1 today SCD due to recent GI bleeding Disposition Will discharge to [facility] today Case discussed with Dr. Whatley at [facility] to provide with updates Total Time Total Time Spent Total Time Spent (In Minutes): 40 minutes Discharge Plan Discharge Items [facility] Reason For Visit: LOWER GI BLEED Discharge Diagnosis: Lower GI Bleed Crohn's disease Presence of combination internal cardiac defibrillator (ICD) and pacemaker Ischemic cardiomyopathy Coronary artery disease COPD (chronic obstructive pulmonary disease) Mood Disorder Discharge Goals: Decrease discomfort, Improve disease control and Increase independence Activity: Resume your previous activity Activity Comment: as tolerated Non-emergency contact: Primary Care Provider Call non-emergency contact if: you have any medication questions Follow-up/Referrals: Noah LYLE [Primary Care Provider] - Diet: Heart Healthy Addtl Provider Instructions: Follow up with provider at [facility] Monitor your blood pressure Coumadin and Plavix discontinued Check CBC in 1 week to monitor hemoglobin Follow up with Gastroenterology to arrange for outpatient scope Prescriptions: New pantoprazole 40 mg Tablet,Delayed Release (Dr/Ec) 40 mg PO BID 30 Days Qty: 60 RF: 0 Continued atorvastatin 40 mg Tablet 40 mg PO HS RF: 0 benztropine 0.5 mg Tablet 0.5 mg PO BID RF: 0 haloperidol decanoate 100 mg/mL Solution 1.5 ml IM DIRECTED RF: 0 nitroglycerin [Nitrostat] 0.4 mg Tablet, Sublingual 0.4 mg Sublingual QID PRN (Reason: Chest Pain) RF: 0 lisinopril 2.5 mg Tablet 2.5 mg PO DAILY RF: 0 ranolazine [Ranexa] 1,000 mg Tablet Extended Release 12 Hr 1,000 mg PO BID RF: 0 Alvesco 160 mcg/actuation Hfa Aerosol Inhaler 1 puff INHALATION BID RF: 0 mesalamine 800 mg Tablet,Delayed Release (Dr/Ec) 800 mg PO BID RF: 0 aspirin 81 mg Tablet,Chewable 81 mg PO DAILY RF: 0 albuterol sulfate 90 mcg/actuation Hfa Aerosol Inhaler 2 puff INHALATION TID PRN (Reason: Shortness Of Breath) RF: 0 nortriptyline 25 mg Capsule 25 mg PO BID RF: 0 isosorbide mononitrate 60 mg Tablet Extended Release 24 Hr 60 mg PO BID RF: 0 ferrous gluconate 324 mg (37.5 mg iron) Tablet 324 mg PO DAILY RF: 0 carvedilol 25 mg Tablet 25 mg PO BID RF: 0 Nephron FA 66.6-75-1 mg Tablet 1 tab PO DAILY RF: 0 olanzapine 10 mg Tablet 10 mg PO HS RF: 0 Discontinued clopidogrel [Plavix] 75 mg Tablet 75 mg PO DAILY RF: 0 celecoxib 100 mg Capsule 100 mg PO DAILY RF: 0 warfarin 4 mg Tablet 4 mg PO DAILY RF: 0 warfarin 3 mg Tablet 3 mg PO DAILY RF: 0 Stand-Alone Forms: Counts Include [facility] At [facility] Discharge Orders: Discharge Order (Routine); Ordered 02/24/19 Ordered By: Ricarda Mcguire Admission Data Admit Date/Time: 02/22/19 15:22 Attending Provider: Ricarda Mcguire Admit Provider: Melly Ly Primary Care Provider: Noah LYLE Other Providers: Erika Fu ; Jan Molina ; Manohar Galdamez Donald S. ; Esa Almonte Service: Medical
--- NOTE | 2019-02-28 06:33 | Coding Query ---
ANEMIA To promote full compliance with coding requirements relating to patient care, physician participation is requested in all cases of wrapper layer and examiner soft work uncertainty. Please assist us with the question(s) below: Coding Question(s): The record reflects the following clinical findings: Hemoglobin 8.8 on admission, INR 4.7 on admission, 1 unit PRBC transfused If these findings are indicative of anemia, please specify the known or suspected type by placing an "X" within the parenthesis (x). If other, please document type. Examples are: ( ) Acute blood loss anemia ( ) Acute Postoperative blood loss anemia ( ) Acute postoperative anemia due to dilutional fluids ( ) Chronic blood loss anemia ( ) Anemia of chronic disease ( ) Aplastic anemia ( ) Anemia due to renal disease ( ) Anemia in neoplastic disease ( ) Iron deficient anemia (x ) Anemia, unspecified or other ( ) Other: (please specify) ( ) Unable to determine Thank you Asia VIEIRA
--- NOTE | 2019-02-28 06:38 | Coding Query ---
CODING QUERY To promote full compliance with coding requirements relating to patient care, provider participation is requested in all cases of insurance coder uncertainty. Please assist us with the question(s) below: Coding Question(s): The record indicates the patient had a lower GI bleed, Crohn's disease, group home use of warfarin, Plavix, and aspirin, and INR 4.7 on admission. Please indicate the etiology of the patient's GI bleed below. Physician's Response(s): ( ) GI bleed in Crohn's disease ( x ) GI bleed due to use of anticoagulants (ie warfarin, Plavix, aspirin) ( ) GI bleed due to other cause, please specify ( ) Clinically undetermined Thank you Asia Lau Principal Diagnosis: "that condition established after study, to be chiefly responsible for occasioning the admission of the patient to the hospital for care." Co-Existing Principal Diagnosis: "when two or more diagnoses equally meet the criteria for principal diagnosis as determined by the circumstances of admission, diagnostic work up, and/or therapy provided, and the Alphabetic Index, Tabular List, or another coding guideline does not provide sequencing direction, any one of the diagnoses may be sequenced first." "When the physician has documented what appears to be a current diagnosis in the body of the record, but has not included the diagnosis in the final diagnostic statement, the physician should be asked whether the diagnosis should be added." (Source Coding Clinic 2 QTR90. p3-4) DARIEL
== END 2019-02-24 15:35 | DRG 813 ==
LOC: ED 12:10 → 1E 15:22 → SUATTDRO 15:22 → 1E 17:56 → 2W 02-23 09:39

== ENCOUNTER 2019-06-25 02:28 | Inpatient (IN) ==
[2019-06-25] MEDS ORDERED: fentaNYL citrate 100 MCG/2 ML VIAL IV STA (02:31)
[2019-06-25 03:06] LABS: Basophils # (auto) 0.02 K/uL (0-0.2); Basophils % (auto) 0.4 %; Eosinophils # (auto) 0.17 K/uL (0-0.5); Eosinophils % (auto) 3.6 %; Hematocrit (blood only) 37.5 % (42-52); Hemoglobin 12.5 g/dL (14.0-18.0); Immature Granulocytes # (auto) 0.01 K/uL (0.00-0.02); Immature Granulocytes % (auto) 0.2 %; Lymphocytes % (auto) 27.4 %; Mean Corpuscular Hemoglobin 30.5 pg (25-34); Mean Corpuscular Hgb Conc 33.3 g/dL (32-36); Mean Corpuscular Volume 91.5 fL (80-100); Mean Platelet Volume 10.4 fL (7.4-10.4); Monocytes # (auto) 0.44 K/uL (0.11-0.59); Monocytes % (auto) 9.3 %; Neutrophils % (auto) 59.1 %; Platelet Count 212 K/uL (130-400); RDW Standard Deviation 50.4 fL (36.4-46.3); White Blood Count 4.74 K/uL (4.8-10.8)
[2019-06-25 03:19] LABS: D Dimer 340 ug/L FEU (0-500); INR 1.1 (0.9-1.1); Partial Thromboplastin Time 26.3 Seconds (21.0-31.0); Prothrombin Time 11.2 Seconds (9.0-12.0)
[2019-06-25 03:27] LABS: BUN Creatinine Ratio 14.4 (10-20); Blood Urea Nitrogen 14 mg/dl (7-18); Calcium 9.4 mg/dl (8.5-10.1); Carbon Dioxide 31 mmol/L (21-32); Chloride 105 mmol/L (98-107); Est GFR (Non-African American) 87.2; Glucose 97 mg/dl (70-99); Magnesium 2.2 mg/dl (1.8-2.4); Potassium 4.2 mmol/L (3.5-5.1); Sodium 140 mmol/L (136-145)
[2019-06-25 03:33] LABS: Troponin I < 0.015 ng/ml (0-0.045)
[2019-06-25] MEDS ORDERED: MoRPHine SULFATE 4 MG/ML 1 ML CARP\\VIAL IV STA (04:31)
[2019-06-25] MEDS ORDERED: ONDANSETRON INJ 2 MG/ML 2 ML VIAL IV PRN (05:22)
[2019-06-25] MEDS ORDERED: LEVALBUTEROL TARTRATE 15 GM HFA.AER.AD INH PRN (05:22)
[2019-06-25] MEDS ORDERED: NITROGLYCERIN SL 0.4 MG/TAB TAB SL PRN ×2 (05:22)
--- NOTE | 2019-06-25 06:47 | Emergency Department Note ---
Entered by Jorje Tim acting as a scribe for Shekhar Pool MD ED Provider Note Name: Edil Busby Age: 63 Arrives Via: EMS Informant: Self/EMS CC: Chest pain HPI: 63 y/o male arrives for evaluation of constant central chest pain radiating to his left arm and jaw beginning 2 hours ago. The patient states he was sleeping and woke up with a jolt of chest pain. He reports he is not sure if his pacer/defibrillator went off or not. The patient notes a history of MIs and CVAs. EMS states the patient was given an total of 5 nitroglycerin tablets without relief. The patient reports he normally has relief of his chest pain with this medication. EMS notes he was also given 324mg of aspirin. The patient states he has a history of three stent placement and denies LOC. ROS: See above HPI for pertinent positives & negatives. A total of 10 systems reviewed and were otherwise negative. Past Medical History: a-fib, CVA, COPD, CHF, CAD, Crohns disease, GERD, hepatitis C, HTN Past Surgical History: Stent placement Family History: Cancer, Heart disease Social History: Prisoner. Home Medications: See Below Allergies Penicillins, Sulfa Physical: Vitals: BP 122/70, O2Sat 98 on RA, Pulse 58, Temp 98.1 F Exam: GENERAL: Patient is uncomfortable appearing and in mild acute distress. EYES: No scleral icterus, unremarkable pupils. ENT: Mucous membranes moist, no nasal congestion. NECK: No masses appreciated, no meningismus, trachea is midline. CHEST: Defibrillator in the upper chest. RESPIRATORY: No dyspnea. Clear to auscultation and equal bilaterally. No wheeze, no rhonchi. CARDIOVASCULAR: Regular rate and rhythm. No murmurs, rubs, gallops appreciated. GASTROINTESTINAL: Abdomen soft, non-tender, no peritonitis. Bowel sounds positive. No masses appreciated. BACK: No midline tenderness, no CVA tenderness EXTREMITIES: Normal motion all extremities, no cyanosis, no edema. NEUROLOGIC: Alert and oriented, no acute motor or sensory deficits, no focal weakness, cranial nerves grossly intact. SKIN: No rash, no jaundice, no diaphoresis. ED Course: Prior Medical Record, Triage/Nursing Notes, Medications, Allergies reviewed by Me Vital Signs: reviewed and remarkable for WNL Labs: Reviewed and remarkable for wnl cbc, bmp, trop Interventions: saline lock, fentanyl 75mcg IV Imaging: X ray results are stated below per my interpretation: Chest: 1 view: No infiltrate, no effusion, normal cardiac border. EKG: Per My Interpretation: Indication Chest Pain: Sinus Paulino, poor baseline. 57 bpm. QTC 455. No ectopy, no ischemia. Similar to 02/22/19 Reassessments/Times: 0228: Past medical records reviewed. The patient was evaluated in room C10. A complete history and physical exam was performed. 0248: I reevaluated the patient. His IV was just established. 0314: The patient notes his pain is improving. 0331: I discussed the patient's case with Varinder from [employer]. He notes there are no acute findings or patient alerts after interrogating the patient's pacemaker. 0340: Upon reevaluation, the patient is resting comfortably. I discussed laboratory and radiographic results with the patient. He verbalized agreement of the treatment plan. The patient will be evaluated for further management and care. 0341: I reviewed the patient's case with Dr. Lindsay, [facility] Hospitalist. He will evaluate the patient for further management. Blood pressure: Normal. No Referral necessary Disposition: Hospitalization Differentials: Cardiac Ischemia (STEMI, NSTEMI, Unstable Angina, etc), Aortic Dissection, Arrhythmia, Pulmonary Embolism, Pneumonia, Pneumothorax, MSK, Infectious, Pericarditis/Myocarditis, Esophageal Rupture, Gastrointestinal, amongst other pathologies entertained. Medical Decision Makin yr old male arrives with acute substernal chest pain this morning that awoke him from sleep. Already SLNTG x 5 without significant improvement. ASA also already given. On arrival EKG without ischemia and patient given fentanyl with improvement in pain. CXR, labs OK. He is feeling better. ICD interrogated and no acute findings nor recent reports. With significant cardiac history will bring in for further evaluation. No indication for starting heparin at this time nor for emergent cath. Impression: Substernal chest pain Shekhar Polo MD The scribe's documentation has been prepared under my direction and personally reviewed by me in its entirety. I confirm that the note above accurately reflects all work, treatment, procedures, and medical decision making performed by me. Impression & Plan Substernal chest pain Past Med/Surg History Medical History Anemia (Chronic) Atrial fibrillation (Chronic) Benign prostatic hypertrophy (Chronic) Cerebrovascular disease (Chronic) Chronic systolic CHF (congestive heart failure) (Chronic) COPD (chronic obstructive pulmonary disease) (Chronic) Coronary artery disease (Chronic) Remote history of RCA territory AL with resultant ischemic cardiomyopathy 10/2017-RIGO to LAD, total RCA occlusion that was not amenable to intervention Crohns disease (Chronic) Dyslipidemia (Chronic) GERD (gastroesophageal reflux disease) (Chronic) Hepatitis C (Chronic) Hypertension (Chronic) Ischemic cardiomyopathy (Chronic) Mood disorder (Chronic) Neuropathy (Chronic) Presence of combination internal cardiac defibrillator (ICD) and pacemaker (Chronic) Surgical History S/P coronary artery stent placement Family History Mother Cancer Father Heart disease Social History Preferred Language: Mohawk Communication Ability: Effective Sander Operator Required: No Beliefs That Will Affect Care: None Current Living Situation: Other Current Living Situation Comment: [facility] Other Information That Helps Us Care for You: No Feels Safe at Home: Yes Smoking Status: Former smoker Tobacco Type: cigarettes ; Smoking End Date: february 2019 ; Tobacco Cessation Education Requested by Patient: No Hx Alcohol Use: No Hx Substance Use: No Results & Data Vital Signs Vital Signs - 24 hr 06/25/19 02:35 06/25/19 03:30 06/25/19 04:42 Temperature 36.7 C Temperature Source Oral Pulse Rate 58 L Pulse Rate [Apical] 54 L 69 Respiratory Rate 18 14 15 Blood Pressure 122/70 Blood Pressure [Left Arm] 108/72 110/72 Blood Pressure Mean 87 Blood Pressure Mean [Left Arm] 84 84 Pulse Oximetry 98 97 100 Oxygen Delivery Method Room Air Room Air Room Air Sepsis Recent Fever Within 48 Hours No Sepsis New/Unexplained Change in Mental Status No Sepsis Action Taken by Nursing No Action Required Laboratory Data Result diagrams: 06/25/19 02:50 06/25/19 02:50 Lab Results 06/25/19 06/25/19 06/25/19 Range/Units 02:50 02:50 02:50 WBC 4.74 L (4.8-10.8) K/uL RBC 4.10 L (4.7-6.1) M/uL Hgb 12.5 L (14.0-18.0) g/dL Hct 37.5 L (42-52) % MCV 91.5 (80-100) fL MCH 30.5 (25-34) pg MCHC 33.3 (32-36) g/dL RDW Std Deviation 50.4 H (36.4-46.3) fL RDW Coeff of Joselito 15.0 H (11.5-14.5) % Plt Count 212 (130-400) K/uL MPV 10.4 (7.4-10.4) fL Immature Gran % (Auto) 0.2 % Neut % (Auto) 59.1 % Lymph % (Auto) 27.4 % [place] % (Auto) 9.3 % Eos % (Auto) 3.6 % Baso % (Auto) 0.4 % Immature Gran # (Auto) 0.01 (0.00-0.02) K/uL Neut # (Auto) 2.80 (1.4-6.5) K/uL Lymph # (Auto) 1.30 (1.2-3.4) K/uL [place] # (Auto) 0.44 (0.11-0.59) K/uL Eos # (Auto) 0.17 (0-0.5) K/uL Baso # (Auto) 0.02 (0-0.2) K/uL PT 11.2 (9.0-12.0) Seconds INR 1.1 (0.9-1.1) APTT 26.3 (21.0-31.0) Seconds PTT Ratio 1.0 D-Dimer 340 (0-500) ug/L FEU Sodium 140 (136-145) mmol/L Potassium 4.2 (3.5-5.1) mmol/L Chloride 105 (98-107) mmol/L Carbon Dioxide 31 (21-32) mmol/L Anion Gap 4.0 (3-11) BUN 14 (7-18) mg/dl Creatinine 0.94 (0.6-1.4) mg/dl Est Cr Clr Drug Dosing Not Reportable Est GFR ( Amer) 101.0 Est GFR (Non-Af Amer) 87.2 BUN/Creatinine Ratio 14.4 (10-20) Glucose 97 (70-99) mg/dl Calcium 9.4 (8.5-10.1) mg/dl Magnesium 2.2 (1.8-2.4) mg/dl Troponin I < 0.015 (0-0.045) ng/ml Administered Medications Discontinued Medications Fentanyl Citrate (Fentanyl Citrate) 75 mcg IV NOW STA Stop: 06/25/19 02:32 Last Admin: 06/25/19 02:49 Dose: 75 mcg Documented by: [id number] Morphine Sulfate (Morphine Sulfate) 3 mg IV NOW STA Stop: 06/25/19 04:32 Last Admin: 06/25/19 04:34 Dose: 3 mg Documented by: [id number] Discharge Plan Visit Data *Final* Discharge Date/Time: 06/25/19 04:59 Chief Complaint: Chest Pain Stated Complaint: CHEST PAIN ED Provider: Shekhar Pool Discharge Problem: Substernal chest pain Patient Disposition: Admitted As Inpatient Discharge Instructions Interventions: ED Discharge Assessment Last Done: 06/25/19 04:59 The scribe's documentation has been prepared under my direction and personally reviewed by me in its entirety. I confirm that the note above accurately reflects all work, treatment, procedures, and medical decision making performed by me.
[2019-06-25] MEDS: ACETAMINOPHEN 325 MG TAB PO PRN ×2 (07:37→13:10)
[2019-06-25] MEDS: carvediloL 25 MG TAB PO SCH ×2 (07:39→20:49)
[2019-06-25] MEDS: BENZTROPINE MESYLATE 1 MG TAB PO SCH ×2 (07:39→20:49)
[2019-06-25] MEDS: ASPIRIN 81 MG ECTAB PO SCH (07:39)
[2019-06-25] MEDS: FERROUS GLUCONATE 324 MG TAB PO SCH (07:40)
[2019-06-25] MEDS: MESALAMINE 400 MG CAPDR PO SCH ×2 (07:40→20:49)
[2019-06-25] MEDS: RANOLAZINE 500 MG ER TAB PO SCH ×2 (07:41→20:50)
[2019-06-25] MEDS: ISOSORBIDE MONO EXTENDED REL 60 MG TABCR PO SCH ×2 (07:41→20:48)
[2019-06-25] MEDS: NORTRIPTYLINE HCL 25 MG CAP PO SCH ×2 (07:41→20:49)
[2019-06-25] MEDS ORDERED: PERFLUTREN LIPID MICROSPHERE (DEFINITY) IV ONE (08:01)
--- NOTE | 2019-06-25 08:28 | XRay Report ---
XR chest 1V portable HISTORY: Atypical Chest pain COMPARISON: Chest 02/22/2019. FINDINGS: Left-sided single lead pacemaker/defibrillator. Old, healed left-sided rib fractures. The l ungs are clear. The heart is normal in size. No pleural effusions. No pneumothorax. IMPRESSION: No significant change compared to the prior study. No acute process. Electronically signed by: Rich Patel M.D. 06/25/2019 8:27 AM
[2019-06-25] MEDS ORDERED: ALUMINUM/MAGNESIUM/SIMETH (MAALOX MAX) 30 ML UDC PO PRN (09:50)
--- NOTE | 2019-06-25 09:50 | Hospitalist Progress Note ---
Date of Service June 25, 2019 Assessment & Plan (1) Substernal chest pain: Patient presented with chest pain rating to his left arm and some dyspnea. Known coronary artery disease. Chest pain at this time may be cardiac in nature, but consider GI etiology as well. No acute EKG changes. Serum troponin negative x2. Consult Cardiology for further recommendations. (2) Coronary artery disease: History of coronary artery disease, status post RCA infarct several years ago. Subsequent cardiac catheterization at [facility] in 2018 showed mid LAD lesion; PCI with drug-eluting stent performed. Chest pain as described above. Continue aspirin, carvedilol, lisinopril, nitrates, ranolazine, atorvastatin. (3) Chronic systolic CHF (congestive heart failure): History of ischemic cardiomyopathy. Echocardiogram 05/16/2018 demonstrated akinesis of inferior wall, overall LVEF 40-45%, grade 1 diastolic dysfunction. Status post ICD placement. CHF compensated clinically and radiographically. Continue carvedilol, lisinopril, nitrates. (4) Atrial fibrillation: History of atrial fibrillation. Currently in sinus rhythm. Not anticoagulated because of chronic GI bleeding. Continue carvedilol. (5) COPD (chronic obstructive pulmonary disease): Pulmonary status stable. (6) GERD (gastroesophageal reflux disease): History of GERD. No medications for acid suppression admission medication reconciliation. Start pantoprazole. (7) Dysphagia: Patient reports dysphagia to solids. Consider GI evaluation once cardiac status has been evaluated. (8) Crohns disease: Patient reports daily abdominal discomfort, loose stools, hematochezia. Hemoglobin at time of admission 12.5. Continue mesalamine. (9) DVT prophylaxis: No anticoagulants due to chronic GI bleeding. SCDs. Ambulate as able. (10) Discharge planning issues: Anticipated return to [facility] under care of medical team there. Subjective Recheck for chest pain and other problems. Patient seen in their room around 0920. 63-year-old male with history of ischemic heart disease, Crohn's disease with daily loose bloody stools, GERD, and other problems. Admitted during the night with substernal chest pressure. No relief with nitroglycerin. Has persistent chest pain today rating to his left arm, rated 3/10. Took some Tylenol with some relief. Feels somewhat short of breath. Review of Systems: Constitutional- no fever. Cardiac- as noted above. Pulmonary- no cough. GI- chronic daily diffuse abdominal discomfort and bloody loose stools. - no urinary symptoms. Otherwise, as noted above. Physical Exam Constitutional: no acute distress Eyes: + anicteric sclerae Respiratory: no respiratory distress Auscultation: lungs clear to auscultation bilaterally Cardiovascular: Rate/Rhythm: regular rate and regular rhythm Heart Sounds: no gallop, no murmur and no cardiac rub Vessels: no JVD Extremities: no calf tenderness and no edema Gastrointestinal (Abdomen): normal bowel sounds, soft, nontender, no hepatosplenomegaly Musculoskeletal: Extremities: extremities normal to inspection (SCD's) Skin: no rashes, warm and dry Psychiatric: Orientation: alert and oriented x 3 Results & Data Vital Signs (Past 12 Hours) Vital Signs Temp Pulse Pulse Resp BP BP Pulse Ox 06/25/19 07:38 36.3 C L 61 19 119/72 98 06/25/19 05:08 36.3 C L 60 16 129/76 100 06/25/19 04:42 69 15 110/72 100 06/25/19 03:30 54 L 14 108/72 97 06/25/19 02:35 36.7 C 58 L 18 122/70 98 Laboratory Results Laboratory Results - last 24 hr 06/25/19 06/25/19 06/25/19 02:50 02:50 02:50 WBC 4.74 L RBC 4.10 L Hgb 12.5 L Hct 37.5 L MCV 91.5 MCH 30.5 MCHC 33.3 RDW Std Deviation 50.4 H RDW Coeff of Joselito 15.0 H Plt Count 212 MPV 10.4 Immature Gran % (Auto) 0.2 Neut % (Auto) 59.1 Lymph % (Auto) 27.4 [place] % (Auto) 9.3 Eos % (Auto) 3.6 Baso % (Auto) 0.4 Immature Gran # (Auto) 0.01 Neut # (Auto) 2.80 Lymph # (Auto) 1.30 [place] # (Auto) 0.44 Eos # (Auto) 0.17 Baso # (Auto) 0.02 PT 11.2 INR 1.1 APTT 26.3 PTT Ratio 1.0 D-Dimer 340 Sodium 140 Potassium 4.2 Chloride 105 Carbon Dioxide 31 Anion Gap 4.0 BUN 14 Creatinine 0.94 Est Cr Clr Drug Dosing Not Reportable Est GFR ( Amer) 101.0 Est GFR (Non-Af Amer) 87.2 BUN/Creatinine Ratio 14.4 Glucose 97 Calcium 9.4 Magnesium 2.2 Troponin I < 0.015 Nasal Screen MRSA (PCR) 06/25/19 06/25/19 05:45 07:04 WBC RBC Hgb Hct MCV MCH MCHC RDW Std Deviation RDW Coeff of Joselito Plt Count MPV Immature Gran % (Auto) Neut % (Auto) Lymph % (Auto) [place] % (Auto) Eos % (Auto) Baso % (Auto) Immature Gran # (Auto) Neut # (Auto) Lymph # (Auto) [place] # (Auto) Eos # (Auto) Baso # (Auto) PT INR APTT PTT Ratio D-Dimer Sodium Potassium Chloride Carbon Dioxide Anion Gap BUN Creatinine Est Cr Clr Drug Dosing Est GFR ( Amer) Est GFR (Non-Af Amer) BUN/Creatinine Ratio Glucose Calcium Magnesium Troponin I < 0.015 Nasal Screen MRSA (PCR) Negative Diagnostic Findings PORTABLE CHEST X-RAY FINDINGS: Left-sided single lead pacemaker/defibrillator. Old, healed left-sided rib fractures. The lungs are clear. The heart is normal in size. No pleural effusions. No pneumothorax. IMPRESSION: No significant change compared to the prior study. No acute process. Electronically signed by: Rich Patel M.D. 06/25/2019 8:27 AM ECG Additional Comments: EKG performed at 0234 reviewed and demonstrated SB at 57 / min, baseline artifact, T-wave flattening V2..
[2019-06-25] MEDS: PANTOprazole 40 MG TAB PO SCH ×2 (10:15→20:49)
--- NOTE | 2019-06-25 12:17 | Cardiology Consultation ---
Date of Consultation June 25, 2019 Assessment & Plan (1) Substernal chest pain: While his chest discomfort is not the typical description of acute coronary syndrome given his complex coronary artery disease history I do believe further ischemic evaluation is warranted. So we will plan to perform a Lexiscan nuclear stress test given his underlying coronary disease. We will continue his outpatient aspirin, atorvastatin and beta-blockade (2) Coronary artery disease: We will continue aspirin and atorvastatin. (3) Chronic systolic CHF (congestive heart failure): LV systolic function remains reduced at 40 to 45% with no significant change compared to previous study. Patient does not examine his volume overloaded at this time. (4) Presence of combination internal cardiac defibrillator (ICD) and pacemaker: Device was remotely interrogated in the ED with report of normal function and no triggers or alarms. (5) Symptomatic anemia: History, was previously on Coumadin for paroxysmal atrial fibrillation which is been held since his previous hospitalization. (6) PAF (paroxysmal atrial fibrillation): Currently normal sinus rhythm Coumadin will not be restarted at this time. History of Present Illness Reason for Consultation: Chest pain Requesting Physician: Dr. Dinh Attending Physician: Atilio Dinh MD History of Present Illness It was my pleasure to see Mr. Busby in consultation today June 25, 2019. He is a very pleasant 63-year-old gentleman who is currently incarcerated at [facility] who presented to [facility] emergency department early in the a.m. of 06/25/2019 with complaints of chest pain. Patient states he was in his normal state of health yesterday but then felt his defibrillator vibrate 3 times in his chest. This was not associated with any ICD shocks but something he noticed. He then went to bed and woke up in the middle the night with chest pain. He describes a sharp stabbing pain across his left sternal border that radiated up into his jaw and left shoulder. It was associated with some shortness of breath he alerted the medical staff and was brought in the emergency department. Upon arrival initial work-up was unremarkable and he was admitted to telemetry. Past medical history as per Dr. Galdamez's consultation of February 22, 2019: Apparent long-standing history of chronic cardiac and noncardiac chest pain. He has been evaluated at multiple institutions in the past including the [facility] as well as [facility]. He has a long-standing history of coronary heart disease with remote right coronary artery territory myocardial infarction and resultant ischemic cardiomyopathy. He underwent implantation of a single-chamber Medtronic AICD in 2011 for the apparent indication of primary prevention of sudden cardiac Most recently had cardiac catheterization x2 at [facility] revealing chronic occlusion of the proximal right coronary artery. Patient was found to have an intermediate 45-50% stenosis of the mid LAD that had initially been found to not be hemodynamically significant by fractional flow reserve and therefore medication management was recommended. The patient however returned to [facility] with recurrent chest discomfort and underwent drug-eluting stent to the mid LAD in October 2017. The procedure report/discharge summary is scanned into his [facility] electronic record from his stay in February, Patient was admitted to [facility] February, for chest discomfort. Cardiac enzymes are negative. He was found to have moderate LV systolic dysfunction with ejection fraction in the range of 35% with inferior wall scar and also dyssynchronous ventricular contraction with frequent right ventricular pacing. Allergies Allergy/AdvReac Type Severity Reaction Status Date / Time Penicillins AdvReac Intermediate "I get Verified 06/25/19 03:18 sick." Sulfa (Sulfonamide AdvReac Intermediate "I get Verified 06/25/19 03:18 Antibiotics) sick." OLEORESIN CAPSICUM Allergy Unknown UNKNOWN Uncoded 06/25/19 03:18 Home Medications Home Medications Medication Instructions Recorded Confirmed Type Alvesco 1 puff INHALATION BID 05/16/18 06/25/19 History atorvastatin 40 mg PO HS 05/16/18 06/25/19 History haloperidol decanoate 1.5 ml IM DIRECTED 05/16/18 06/25/19 History lisinopril 2.5 mg PO DAILY 05/16/18 06/25/19 History mesalamine 800 mg PO BID 05/16/18 06/25/19 History nitroglycerin [Nitrostat] 0.4 mg SUBLINGUAL QID PRN 05/16/18 06/25/19 History ranolazine [Ranexa] 1,000 mg PO BID 05/16/18 06/25/19 History Nephron FA 1 tab PO DAILY 02/22/19 06/25/19 History aspirin 81 mg PO DAILY 02/22/19 06/25/19 History carvedilol 25 mg PO BID 02/22/19 06/25/19 History ferrous gluconate 324 mg PO DAILY 02/22/19 06/25/19 History isosorbide mononitrate 60 mg PO BID 02/22/19 06/25/19 History nortriptyline 25 mg PO BID 02/22/19 06/25/19 History olanzapine 10 mg PO HS 02/22/19 06/25/19 History benztropine 1 mg PO BID 06/25/19 06/25/19 History buspirone 10 mg PO BID 06/25/19 06/25/19 History levalbuterol tartrate [Xopenex HFA] 2 inh INHALATION QID PRN 06/25/19 06/25/19 History Patient History Medical History Anemia (Chronic) Atrial fibrillation (Chronic) Benign prostatic hypertrophy (Chronic) Cerebrovascular disease (Chronic) Chronic systolic CHF (congestive heart failure) (Chronic) COPD (chronic obstructive pulmonary disease) (Chronic) Coronary artery disease (Chronic) Remote history of RCA territory UT with resultant ischemic cardiomyopathy 10/2017-RIGO to LAD, total RCA occlusion that was not amenable to intervention Crohns disease (Chronic) Dyslipidemia (Chronic) GERD (gastroesophageal reflux disease) (Chronic) Hepatitis C (Chronic) Hypertension (Chronic) Ischemic cardiomyopathy (Chronic) Mood disorder (Chronic) Neuropathy (Chronic) Presence of combination internal cardiac defibrillator (ICD) and pacemaker (Chronic) Surgical History S/P coronary artery stent placement Family History Mother Cancer Father Heart disease Social History Preferred Language: Niuean Communication Ability: Effective Reading Assistant Required: No Beliefs That Will Affect Care: None Current Living Situation: Other Current Living Situation Comment: [facility] Other Information That Helps Us Care for You: No Feels Safe at Home: Yes Smoking Status: Former smoker Tobacco Type: cigarettes ; Smoking End Date: february 2019 ; Tobacco Cessation Education Requested by Patient: No Hx Alcohol Use: No Hx Substance Use: No Review of Systems Review of Systems: All systems reviewed & are unremarkable except as noted in HPI & below Physical Exam Physical Exam: General: Awake, alert and oriented x 3. No acute distress. HEENT: Normocephalic, atraumatic. Pupils equal, round and reactive to light and accommodation. Extraocular muscles are intact. Anicteric sclera. Moist mucous membranes. Neck: No JVD. No bruit. Cardiovascular: Regular. Positive S-4. Normal S-1 and S-2. No S-3. No murmurs or rubs. Pulmonary: Clear to auscultation B/L. No rales, rhonchi or wheezing Abdomen: Bowel sounds x 4, soft. No rebound, guarding or tenderness. No organomegaly. Extremities: No clubbing, cyanosis or edema. +2 pedal pulses bilaterally. Skin: Warm and dry. Results & Data Vital Signs (Past 12 Hours) Vital Signs Temp Pulse Pulse Resp BP BP Pulse Ox 06/25/19 11:46 36.4 C L 58 L 19 122/76 99 06/25/19 07:38 36.3 C L 61 19 119/72 98 06/25/19 05:08 36.3 C L 60 16 129/76 100 06/25/19 04:42 69 15 110/72 100 06/25/19 03:30 54 L 14 108/72 97 06/25/19 02:35 36.7 C 58 L 18 122/70 98 Laboratory Results Laboratory Results - last 24 hr 06/25/19 06/25/19 06/25/19 02:50 02:50 02:50 WBC 4.74 L RBC 4.10 L Hgb 12.5 L Hct 37.5 L MCV 91.5 MCH 30.5 MCHC 33.3 RDW Std Deviation 50.4 H RDW Coeff of Joselito 15.0 H Plt Count 212 MPV 10.4 Immature Gran % (Auto) 0.2 Neut % (Auto) 59.1 Lymph % (Auto) 27.4 [place] % (Auto) 9.3 Eos % (Auto) 3.6 Baso % (Auto) 0.4 Immature Gran # (Auto) 0.01 Neut # (Auto) 2.80 Lymph # (Auto) 1.30 [place] # (Auto) 0.44 Eos # (Auto) 0.17 Baso # (Auto) 0.02 PT 11.2 INR 1.1 APTT 26.3 PTT Ratio 1.0 D-Dimer 340 Sodium 140 Potassium 4.2 Chloride 105 Carbon Dioxide 31 Anion Gap 4.0 BUN 14 Creatinine 0.94 Est Cr Clr Drug Dosing Not Reportable Est GFR ( Amer) 101.0 Est GFR (Non-Af Amer) 87.2 BUN/Creatinine Ratio 14.4 Glucose 97 Calcium 9.4 Magnesium 2.2 Troponin I < 0.015 Nasal Screen MRSA (PCR) 06/25/19 06/25/19 06/25/19 05:45 07:04 11:27 WBC RBC Hgb Hct MCV MCH MCHC RDW Std Deviation RDW Coeff of Joselito Plt Count MPV Immature Gran % (Auto) Neut % (Auto) Lymph % (Auto) [place] % (Auto) Eos % (Auto) Baso % (Auto) Immature Gran # (Auto) Neut # (Auto) Lymph # (Auto) [place] # (Auto) Eos # (Auto) Baso # (Auto) PT INR APTT PTT Ratio D-Dimer Sodium Potassium Chloride Carbon Dioxide Anion Gap BUN Creatinine Est Cr Clr Drug Dosing Est GFR ( Amer) Est GFR (Non-Af Amer) BUN/Creatinine Ratio Glucose Calcium Magnesium Troponin I < 0.015 < 0.015 Nasal Screen MRSA (PCR) Negative Medications Administered Current Inpatient Medications Acetaminophen (Tylenol) 650 mg PO Q4H PRN PRN Reason: Pain or Fever Stop: 07/25/19 05:21 Last Admin: 06/25/19 07:37 Dose: 650 mg Documented by: Al Hydrox/Mg Hydrox/Simethicone (Maalox Max) 15 ml PO Q6H PRN PRN Reason: Heartburn Stop: 07/25/19 09:49 Aspirin (Ecotrin Ectab) 81 mg PO DAILY [facility] Stop: 07/25/19 08:59 Last Admin: 06/25/19 07:39 Dose: 81 mg Documented by: Atorvastatin Calcium (Lipitor) 40 mg PO HS [facility] Stop: 07/25/19 20:59 Benztropine Mesylate (Cogentin) 1 mg PO BID [facility] Stop: 07/25/19 08:59 Last Admin: 06/25/19 07:39 Dose: 1 mg Documented by: Buspirone HCl (Buspar) 10 mg PO BID [facility] Stop: 07/25/19 08:59 Last Admin: 06/25/19 07:38 Dose: 10 mg Documented by: Carvedilol (Coreg) 25 mg PO BID [facility] Stop: 07/25/19 08:59 Last Admin: 06/25/19 07:39 Dose: 25 mg Documented by: Ferrous Gluconate (Ferrous Gluconate) 324 mg PO DAILY K[facility]AN Stop: 07/25/19 08:59 Last Admin: 06/25/19 07:40 Dose: 324 mg Documented by: Isosorbide Mononitrate (Imdur Extended Rel) 60 mg PO BID KARAN Stop: 07/25/19 08:59 Last Admin: 06/25/19 07:41 Dose: 60 mg Documented by: Levalbuterol HCl (Xopenex Hfa) 2 puffs INH QID PRN PRN Reason: Unknown Stop: 07/25/19 05:21 Lisinopril (Zestril) 2.5 mg PO DAILY [facility] Stop: 07/25/19 08:59 Last Admin: 06/25/19 07:41 Dose: 2.5 mg Documented by: Mesalamine (Delzicol) 800 mg PO BID [facility] Stop: 07/25/19 08:59 Last Admin: 06/25/19 07:40 Dose: 800 mg Documented by: Miscellaneous (Order Awaiting Action) 1 ea N/A QS [facility] Stop: 07/25/19 07:59 Last Admin: 06/25/19 07:38 Dose: Not Given Documented by: Nitroglycerin (Nitrostat) 0.4 mg SL UD PRN PRN Reason: Chest Pain Stop: 07/25/19 05:21 Nortriptyline HCl (Pamelor) 25 mg PO BID [facility] Stop: 07/25/19 08:59 Last Admin: 06/25/19 07:41 Dose: 25 mg Documented by: Olanzapine (Zyprexa) 10 mg PO HS [facility] Stop: 07/25/19 20:59 Ondansetron HCl (Zofran) 4 mg IV Q6H PRN PRN Reason: Nausea Stop: 07/25/19 05:21 Pantoprazole Sodium (Protonix) 40 mg PO BID [facility] Stop: 07/25/19 09:59 Last Admin: 06/25/19 10:15 Dose: 40 mg Documented by: Ranolazine (Ranexa) 1,000 mg PO BID [facility] Stop: 07/25/19 08:59 Last Admin: 06/25/19 07:41 Dose: 1,000 mg Documented by:
--- NOTE | 2019-06-25 14:11 | Communication Note ---
Date of Service: June 25, 2019 Patient complained of persistent chest pain. EKG at 13:12 reviewed and showed NSR 64/min, occasional PVC, no acute ST or T- wave changes. Chest pain may be cardiac or noncardiac. Continue to trend troponins.
--- NOTE | 2019-06-25 14:21 | History and Physical Report ---
DATE OF ADMISSION: 06/25/2019 CHIEF COMPLAINT: Chest pain. HISTORY OF PRESENT ILLNESS: This is a 63-year-old male with past medical history significant for CAD status post stent, ischemic cardiomyopathy with last echo EF of 40%, status post ICD and pacemaker, history of GI bleed, history of Crohn's disease, history of atrial fibrillation, hepatitis C, BPH, history of CVA, hyperlipidemia, hypertension, GERD, COPD, history of anemia, history of mood disorder, presents with chest pain. The patient says he woke up from sleep with chest pain, stabbing kind of pain in the left chest radiating to his left arm and throat, 7/10 in severity. He took 3 nitros and it did not help and came into the ER and he was given some fentanyl and it did resolve the pain, but he thinks it is coming back and requests for pain medication. During the episode, he was sweating. Denies any nausea or shortness of breath. Currently resting comfortably and hemodynamically stable . He says he was admitted recently for GI bleed and says still has some blood in stool but better than before.. He was on Coumadin for AFib, which was stopped last admission for short term, but it was not resumed, the patient is asking whether it can be resumed. Denies any headache, no blurred vision, no earache, no runny nose, states has some sore throat. He says sometimes it is difficult to swallow solids and has to drink water to push it is down. No abdominal pain. Normal bowel and bladder movements. Still has some blood in the stools. Normal bowel and normal bladder movements. No hematuria or burning micturition, no swelling in the legs, no rash. Ambulates okay. ALLERGIES: PENICILLIN, SULFA ANTIBIOTICS, (OLEORESIN)CAPSICUM. PAST MEDICAL HISTORY: As mentioned above. PAST SURGICAL HISTORY: Status post cardiac stents, status post ICD and pacemaker. MEDICATIONS: The patient currently on Alvesco 1 puff inhalation b.i.d., aspirin 81 mg p.o. daily, atorvastatin 40 mg p.o. at bedtime, benztropine 1 mg p.o. b.i.d., buspirone 10 mg p.o. b.i.d., Coreg 25 mg p.o. b.i.d., ferrous sulfate 325 mg p.o. daily, haloperidol IM as directed, isosorbide mononitrate 60 mg b.i.d., Xopenex HFA 2 inhalations q.i.d. p.r.n., lisinopril 2.5 mg p.o. daily, mesalamine 800 mg p.o. b.i.d., Nephron one tablet p.o. daily, nitroglycerin 0.4 mg sublingual q.i.d. p.r.n., nortriptyline 25 mg p.o. b.i.d., olanzapine 10 mg p.o. at bedtime, Ranexa 1000 mg p.o. b.i.d. FAMILY HISTORY: Significant for mother had cancer. Father had heart disorder. SOCIAL HISTORY: History of smoking present but lately the patient is not smoking, as long term is now smoke free but sometimes sneaks.. No alcohol use, no substance abuse. REVIEW OF SYMPTOMS: As per HPI. Rest of review of systems negative. PHYSICAL EXAMINATION: GENERAL: The patient is of moderate built, not in acute distress. VITAL SIGNS: Temperature 36.7, pulse 54, respiratory rate 14, blood pressure 108/70, oxygen 97% room air. HEENT: No pallor, no icterus. Pupils equal, round, reactive to light. NECK: No JVD, no neck masses, no carotid bruit. CARDIOVASCULAR: S1, S2 heard, regular rate and rhythm, no murmur, no gallop. RESPIRATORY SYSTEM: Normal AP diameter. No accessory muscle use. No wheezing, no crackles. ABDOMEN: Soft, bowel sounds present, nontender. No distention. CENTRAL NERVOUS SYSTEM: Alert and awake and oriented. Obeys commands. Moves extremities. Nonfocal. EXTREMITIES: No edema, no erythema. LABORATORY DATA: WBC 4.7, hemoglobin 12.5, hematocrit 37.5, platelets 112. PT 11.2, INR 1.1, APTT 26.3. Sodium 140, potassium 4.2, chloride 105, bicarbonate 31, BUN 14, creatinine 0.9, serum glucose 97, calcium 9.4, magnesium 2.2. Troponin I less than 0.015. Chest x-ray: No acute findings seen. He has bradycardia, rate of 57, nonspecific T-wave abnormalities in anterior leads. ASSESSMENT AND PLAN: This 63-year-old male who presents with chest pain. 1. Chest pain. History of coronary artery disease status post stents in the past. Initial workup was negative. We will observe in tele floor. Serial cardiac enzymes, echocardiogram and consult cardiology in a.m. We will keep n.p.o. until seen by cardiology. 2. History of cerebrovascular accident. Continue home medication of statin, aspirin. 3. History of hypertension. Coreg, nitrate, lisinopril and monitor his blood pressure in the hospital. 4. History of chronic systolic congestive heart failure with last echo EF of 40%, status post ICD and pacemaker. On Coreg and lisinopril. Not on any diuretics. We will follow echo. 5. History of atrial fibrillation. Rate control with Coreg, no longer on Coumadin. Coumadin was stopped for last admission for short term for GI bleed and EKG showing sinus rhythm. The patient asking about going back on Coumadin. Restart Coumadin as per cardiology. 6. History of Crohn's disease, on mesalamine. Sys still has some Gi bleed. Follow with GI. 7. Mood disorder. Continue home medication and monitor. On Olanzapine, risperidone, and benztropine. 8. History of chronic obstructive pulmonary disease. Continue Alvesco and Xopenex p.r.n. 9. Hyperlipidemia. Continue statin. 10 Dysphagia for solids? speech consult. 10. Deep vein thrombosis prophylaxis, sequential compression devices for now. 11. Disposition: Monitor in tele floor. Expect to discharge back to home patient when stable. Level 1 full code. MTDD
[2019-06-25] MEDS: ATORVASTATIN 40 MG TAB PO SCH (20:48)
[2019-06-25] MEDS: OLANZapine 10 MG TAB PO SCH (20:49)
[2019-06-26 05:30] LABS: Basophils # (auto) 0.02 K/uL (0-0.2); Basophils % (auto) 0.4 %; Eosinophils # (auto) 0.13 K/uL (0-0.5); Eosinophils % (auto) 2.7 %; Hematocrit (blood only) 34.8 % (42-52); Hemoglobin 11.7 g/dL (14.0-18.0); Immature Granulocytes # (auto) 0.01 K/uL (0.00-0.02); Immature Granulocytes % (auto) 0.2 %; Lymphocytes # (auto) 1.19 K/uL (1.2-3.4); Lymphocytes % (auto) 25.1 %; Mean Corpuscular Hemoglobin 30.5 pg (25-34); Mean Corpuscular Hgb Conc 33.6 g/dL (32-36); Mean Corpuscular Volume 90.6 fL (80-100); Monocytes # (auto) 0.49 K/uL (0.11-0.59); Monocytes % (auto) 10.3 %; Neutrophils % (auto) 61.3 %; Platelet Count 191 K/uL (130-400); RDW Standard Deviation 50.2 fL (36.4-46.3); Red Blood Count 3.84 M/uL (4.7-6.1); White Blood Count 4.74 K/uL (4.8-10.8)
[2019-06-26 05:51] LABS: BUN Creatinine Ratio 13.8 (10-20); Creatinine Clr Calc Pharmacy 82.7 ml/min; Est GFR (African American) 90.4; Potassium 4.5 mmol/L (3.5-5.1)
[2019-06-26] MEDS: carvediloL 25 MG TAB PO SCH ×2 (08:43→19:50)
[2019-06-26] MEDS: FERROUS GLUCONATE 324 MG TAB PO SCH (08:44)
[2019-06-26] MEDS: ASPIRIN 81 MG ECTAB PO SCH (08:45)
[2019-06-26] MEDS: RANOLAZINE 500 MG ER TAB PO SCH ×2 (08:45→19:51)
[2019-06-26] MEDS: PANTOprazole 40 MG TAB PO SCH ×2 (08:45→19:52)
[2019-06-26] MEDS: ISOSORBIDE MONO EXTENDED REL 60 MG TABCR PO SCH ×2 (08:46→19:51)
[2019-06-26] MEDS: NORTRIPTYLINE HCL 25 MG CAP PO SCH ×2 (08:46→19:52)
[2019-06-26] MEDS: MESALAMINE 400 MG CAPDR PO SCH ×2 (08:46→19:50)
[2019-06-26] MEDS: BENZTROPINE MESYLATE 1 MG TAB PO SCH ×2 (08:47→19:51)
--- NOTE | 2019-06-26 11:35 | Cardiology Progress Note ---
Date of Service June 26, 2019 Assessment & Plan (1) Substernal chest pain: While his chest discomfort is not the typical description of acute coronary syndrome given his complex coronary artery disease history I do believe further ischemic evaluation is warranted. So we will plan to perform a Lexiscan nuclear stress test given his underlying coronary disease. NPO after midnight, no caffeine today or tomorrow. We will continue his outpatient aspirin, atorvastatin and beta-blockade (2) Coronary artery disease: We will continue aspirin and atorvastatin. (3) Chronic systolic CHF (congestive heart failure): LV systolic function remains reduced at 40 to 45% with no significant change compared to previous study. Patient does not examine his volume overloaded at this time. (4) Presence of combination internal cardiac defibrillator (ICD) and pacemaker: Device was remotely interrogated in the ED with report of normal function and no triggers or alarms. (5) Symptomatic anemia: History, was previously on Coumadin for paroxysmal atrial fibrillation which is been held since his previous hospitalization. (6) PAF (paroxysmal atrial fibrillation): Currently normal sinus rhythm Coumadin will not be restarted at this time. Subjective Pt seen and examined, states that he's feeling more fatigued today. States chest pain persists but remains sharp in nature. Denies sob, palpitations, lightheadedness or dizziness. tele reviewed: normal sinus rhythm without arrhythmia or significant ecotpy Review of Systems Review of Systems: All systems reviewed & are unremarkable except as noted in HPI & below Physical Exam Physical Exam: General: Awake, alert and oriented x 3. No acute distress. HEENT: Normocephalic, atraumatic. Pupils equal, round and reactive to light and accommodation. Extraocular muscles are intact. Anicteric sclera. Moist mucous membranes. Neck: No JVD. No bruit. Cardiovascular: Regular. Positive S-4. Normal S-1 and S-2. No S-3. No murmurs or rubs. Pulmonary: Clear to auscultation B/L. No rales, rhonchi or wheezing Abdomen: Bowel sounds x 4, soft. No rebound, guarding or tenderness. No organomegaly. Extremities: No clubbing, cyanosis or edema. +2 pedal pulses bilaterally. Skin: Warm and dry. Results & Data Vital Signs (Past 12 Hours) Vital Signs Temp Pulse Resp BP Pulse Ox 06/26/19 07:15 36.4 C L 60 18 150/79 H 98 06/26/19 04:56 36.4 C L 58 L 20 87/60 L 95 Laboratory Results Laboratory Results - last 24 hr 06/25/19 06/25/19 06/26/19 11:27 17:02 05:14 WBC 4.74 L RBC 3.84 L Hgb 11.7 L Hct 34.8 L MCV 90.6 MCH 30.5 MCHC 33.6 RDW Std Deviation 50.2 H RDW Coeff of Joselito 15.0 H Plt Count 191 MPV 10.0 Immature Gran % (Auto) 0.2 Neut % (Auto) 61.3 Lymph % (Auto) 25.1 Nicollet % (Auto) 10.3 Eos % (Auto) 2.7 Baso % (Auto) 0.4 Immature Gran # (Auto) 0.01 Neut # (Auto) 2.90 Lymph # (Auto) 1.19 L Nicollet # (Auto) 0.49 Eos # (Auto) 0.13 Baso # (Auto) 0.02 Sodium Potassium Chloride Carbon Dioxide Anion Gap BUN Creatinine Est Cr Clr Drug Dosing Est GFR ( Amer) Est GFR (Non-Af Amer) BUN/Creatinine Ratio Glucose Calcium Magnesium Troponin I < 0.015 < 0.015 06/26/19 05:14 WBC RBC Hgb Hct MCV MCH MCHC RDW Std Deviation RDW Coeff of Joselito Plt Count MPV Immature Gran % (Auto) Neut % (Auto) Lymph % (Auto) Nicollet % (Auto) Eos % (Auto) Baso % (Auto) Immature Gran # (Auto) Neut # (Auto) Lymph # (Auto) Nicollet # (Auto) Eos # (Auto) Baso # (Auto) Sodium 139 Potassium 4.5 Chloride 105 Carbon Dioxide 31 Anion Gap 3.0 BUN 14 Creatinine 1.03 Est Cr Clr Drug Dosing 82.7 Est GFR ( Amer) 90.4 Est GFR (Non-Af Amer) 78.0 BUN/Creatinine Ratio 13.8 Glucose 89 Calcium 9.0 Magnesium 2.0 Troponin I Medications Administered Current Inpatient Medications Acetaminophen (Tylenol) 650 mg PO Q4H PRN PRN Reason: Pain or Fever Stop: 07/25/19 05:21 Last Admin: 06/25/19 13:10 Dose: 650 mg Documented by: Al Hydrox/Mg Hydrox/Simethicone (Maalox Max) 15 ml PO Q6H PRN PRN Reason: Heartburn Stop: 07/25/19 09:49 Last Admin: 06/25/19 13:11 Dose: 15 ml Documented by: Aspirin (Ecotrin Ectab) 81 mg PO DAILY [facility] Stop: 07/25/19 08:59 Last Admin: 06/26/19 08:45 Dose: 81 mg Documented by: Atorvastatin Calcium (Lipitor) 40 mg PO HS [facility] Stop: 07/25/19 20:59 Last Admin: 06/25/19 20:48 Dose: 40 mg Documented by: Benztropine Mesylate (Cogentin) 1 mg PO BID [facility] Stop: 07/25/19 08:59 Last Admin: 06/26/19 08:47 Dose: 1 mg Documented by: Buspirone HCl (Buspar) 10 mg PO BID [facility] Stop: 07/25/19 08:59 Last Admin: 06/26/19 08:44 Dose: 10 mg Documented by: Carvedilol (Coreg) 25 mg PO BID [facility] Stop: 07/25/19 08:59 Last Admin: 06/26/19 08:43 Dose: 25 mg Documented by: Ferrous Gluconate (Ferrous Gluconate) 324 mg PO DAILY [facility] Stop: 07/25/19 08:59 Last Admin: 06/26/19 08:44 Dose: 324 mg Documented by: Isosorbide Mononitrate (Imdur Extended Rel) 60 mg PO BID [facility] Stop: 07/25/19 08:59 Last Admin: 06/26/19 08:46 Dose: 60 mg Documented by: Levalbuterol HCl (Xopenex Hfa) 2 puffs INH QID PRN PRN Reason: Unknown Stop: 07/25/19 05:21 Lisinopril (Zestril) 2.5 mg PO DAILY [facility] Stop: 07/25/19 08:59 Last Admin: 06/26/19 09:07 Dose: 2.5 mg Documented by: Mesalamine (Delzicol) 800 mg PO BID [facility] Stop: 07/25/19 08:59 Last Admin: 06/26/19 08:46 Dose: 800 mg Documented by: Miscellaneous (Order Awaiting Action) 1 ea N/A QS [facility] Stop: 07/25/19 07:59 Last Admin: 06/26/19 11:10 Dose: Not Given Documented by: Nitroglycerin (Nitrostat) 0.4 mg SL UD PRN PRN Reason: Chest Pain Stop: 07/25/19 05:21 Nortriptyline HCl (Pamelor) 25 mg PO BID [facility] Stop: 07/25/19 08:59 Last Admin: 06/26/19 08:46 Dose: 25 mg Documented by: Olanzapine (Zyprexa) 10 mg PO HS [facility] Stop: 07/25/19 20:59 Last Admin: 06/25/19 20:49 Dose: 10 mg Documented by: Ondansetron HCl (Zofran) 4 mg IV Q6H PRN PRN Reason: Nausea Stop: 07/25/19 05:21 Pantoprazole Sodium (Protonix) 40 mg PO BID [facility] Stop: 07/25/19 09:59 Last Admin: 06/26/19 08:45 Dose: 40 mg Documented by: Ranolazine (Ranexa) 1,000 mg PO BID [facility] Stop: 07/25/19 08:59 Last Admin: 06/26/19 08:45 Dose: 1,000 mg Documented by:
--- NOTE | 2019-06-26 14:52 | Hospitalist Progress Note ---
Date of Service June 26, 2019 Assessment & Plan (1) Substernal chest pain: Patient presented with chest pain rating to his left arm and some dyspnea. Known coronary artery disease. Chest pain at this time may be cardiac in nature, but consider GI etiology as well. No acute EKG changes. Serum troponin negative x 4. Cardiology consulted for further recommendations. Lexiscan nuclear stress test planned for tomorrow. (2) Coronary artery disease: History of coronary artery disease, status post RCA infarct several years ago. Subsequent cardiac catheterization at [facility] in 2018 showed mid LAD lesion; PCI with drug-eluting stent performed. Chest pain as described above. Continue aspirin, carvedilol, lisinopril, nitrates, ranolazine, atorvastatin. (3) Chronic systolic CHF (congestive heart failure): History of ischemic cardiomyopathy. Echocardiogram 05/16/2018 demonstrated akinesis of inferior wall, overall LVEF 40-45%, grade 1 diastolic dysfunction. Status post ICD placement. CHF compensated clinically and radiographically. Continue carvedilol, lisinopril, nitrates. (4) Atrial fibrillation: History of atrial fibrillation. Currently in sinus rhythm. Not anticoagulated because of chronic GI bleeding. Continue carvedilol. (5) COPD (chronic obstructive pulmonary disease): Pulmonary status stable. (6) GERD (gastroesophageal reflux disease): History of GERD. No medications for acid suppression admission medication reconciliation. Start pantoprazole. (7) Dysphagia: Patient reports dysphagia to solids. Consult GI. (8) Crohns disease: Patient reports daily abdominal discomfort, loose stools, hematochezia. Hemoglobin at time of admission 12.5. Continue mesalamine. Consult GI for their recommendations. (9) Dyslipidemia: Check lipid profile. Continue statin. (10) Nasal pain: Injured nose playing basketball several weeks ago and concerned that it is broken. Check plain films. (11) DVT prophylaxis: No anticoagulants due to chronic GI bleeding. SCDs. Ambulate as able. (12) Discharge planning issues: Anticipated return to [facility] under care of medical team there. Subjective Recheck for chest pain and other problems. Patient seen in their room around 0950. No further chest pain. No SOB. Review of Systems: Constitutional- no fever. Cardiac- as noted above. Pulmonary- no cough. GI- recent dysphagia to solids; chronic daily diffuse abdominal discomfort and bloody loose stools. - no urinary symptoms. Otherwise, as noted above. Physical Exam Constitutional: no acute distress Eyes: + anicteric sclerae Respiratory: no respiratory distress Auscultation: lungs clear to auscultation bilaterally Cardiovascular: Rate/Rhythm: regular rate and regular rhythm Heart Sounds: no gallop, no murmur and no cardiac rub Vessels: no JVD Extremities: no calf tenderness and no edema Gastrointestinal (Abdomen): normal bowel sounds, soft, nontender, no hepatosplenomegaly Musculoskeletal: Extremities: extremities normal to inspection (SCD's) Skin: no rashes, warm and dry Psychiatric: Orientation: alert and oriented x 3 Results & Data Vital Signs (Past 12 Hours) Vital Signs Temp Pulse Resp BP Pulse Ox 06/26/19 12:00 37.2 C 75 20 104/63 95 06/26/19 07:15 36.4 C L 60 18 150/79 H 98 06/26/19 04:56 36.4 C L 58 L 20 87/60 L 95 Laboratory Results 06/26/19 05:14 06/26/19 05:14 ECG Additional Comments: EKG performed at 0636 reviewed and demonstrated NSR at 63 / min, no acute changes.
--- NOTE | 2019-06-26 18:45 | XRay Report ---
XR nasal bones min 3V CLINICAL HISTORY: nasal injury, r/o fracture COMPARISON STUDY: None. FINDINGS: Minimal right nasal septal deviation with a small right nasal spur. The lamina papyracea an d orbital floors are intact. Paranasal sinuses and mastoid air cells are clear. Slight deformity with in the nasal bones consistent with a fracture. IMPRESSION: Nasal bone fracture. Electronically signed by: Rich Patel M.D. 06/26/2019 6:44 PM
[2019-06-26] MEDS: OLANZapine 10 MG TAB PO SCH (19:51)
[2019-06-26] MEDS: ATORVASTATIN 40 MG TAB PO SCH (19:52)
[2019-06-27 07:35] LABS: Chol HDL Ratio 2; Cholesterol 97 mg/dl (0-200); HDL Cholesterol 47 mg/dl; LDL Cholesterol Calculated 39 mg/dl; Triglycerides 56 mg/dl (0-150); VLDL Cholesterol 11 mg/dl
--- NOTE | 2019-06-27 08:53 | Gastrointestinal Consultation ---
Date of Consultation June 27, 2019 Assessment & Plan (1) Dysphagia: 63 year old male with history of CAD status post stent, ischemic cardiomyopathy with last echo EF of 40%, status post ICD and pacemaker, history of GI bleed, history of Crohn's disease, history of atrial fibrillation, he patitis C, BPH, history of CVA, hyperlipidemia, hypertension, GERD, COPD admitted through the ED w/ chest pain undergoing cardiac workup with stress test planned for today - GI asked to evaluate for solids/liquids dysphagia x 3 months associated w/ a reported weight loss. He also has a history of crohns on 5ASA therapy w/ report of chronic bloody diarrhea, no melena. - Appreciate ongoing cardiology work up - Dysphagia - Consider video swallow - Pending cardiac evaluation, EGD - Bloody diarrhea, history of Crohn's - VSS - HGB stable - Trend - Document all GI output - Check c.diff - Check stool culture - Continue 5ASA for now - Unintentional Weight loss - CTAP w/ contrast - EGD - Colonoscopy (2) Crohns disease: Supervising Physician Co-Signing Physician Notes I have seen and examined the patient with KIM Lundy whose note reflects our findings and plan. Patient with multiple comorbidities. Undergoing cardiac evaluation for chest pain. Once cleared by cardiology, will need to further investigate the dysphagia and weight loss. Exam is benign. Abd non-tender. VSS. History of Present Illness Reason for Consultation: dysphagia, history of IBD Requesting Physician: Shayla Attending Physician: Ricarda Mcguire MD History of Present Illness 63 year old male w/ history of CAD status post stent, ischemic cardiomyopathy with last echo EF of 40%, status post ICD and pacemaker, history of GI bleed, history of Crohn's disease, history of atrial fibrillation, hepatitis C, BPH, history of CVA, hyperlipidemia, hypertension, GERD, COPD, history of anemia who presents through the ED for evaluation of chest pain - cardiology following with stress test planned for today. Pt was seen and evaluated, chart reviewed. Two guards at bedside. He notes that he has history of GERD s/p Brigid in the late 1989's. Since, his reflux has been very well controlled. Suggests over the past 2-3 months he has had progressive dysphagia, no other UGI symptoms. Suggests both solids/liquids are sticking. This will either spontaneously pass or he will induce vomiting, regurgitation. Associated w/ 30 lb weight loss. Also notes chronic diarrhea, rectal bleeding. Denies abd surgeries for crohn's. Denies any TNF or biologics for Crohn's. He is on ASA, coumadin & Plavix. Up to 6 stools daily. No black stools but dark. Will see BRB mixed with his stools. No lightheadedness or dizziness. No SOB. He denies any CP today but again, undergoing workup today for CP. No acute EKG changes Troponin negative x2 CTAP 2019: Liver: The contrast-enhanced liver is normal in size, contour, and attenuation. There is no intrahepatic biliary ductal dilatation. The hepatic veins and portal veins are patent.Gallbladder: Unremarkable.Spleen: Normal in size and attenuation.Pancreas: Unremarkable.Adrenal glands: Unremarkable.Bowel: There are no transition zones indicate bowel obstruction. There is no evidence of acute diverticulitis. There is no evidence of acute appendicitis. Allergies Allergy/AdvReac Type Severity Reaction Status Date / Time Penicillins AdvReac Intermediate "I get Verified 06/25/19 03:18 sick." Sulfa (Sulfonamide AdvReac Intermediate "I get Verified 06/25/19 03:18 Antibiotics) sick." OLEORESIN CAPSICUM Allergy Unknown UNKNOWN Uncoded 06/25/19 03:18 Home Medications Home Medications Medication Instructions Recorded Confirmed Type Alves[place] 1 puff INHALATION BID 05/16/18 06/25/19 History atorvastatin 40 mg PO HS 05/16/18 06/25/19 History haloperidol decanoate 1.5 ml IM DIRECTED 05/16/18 06/25/19 History lisinopril 2.5 mg PO DAILY 05/16/18 06/25/19 History mesalamine 800 mg PO BID 05/16/18 06/25/19 History nitroglycerin [Nitrostat] 0.4 mg SUBLINGUAL QID PRN 05/16/18 06/25/19 History ranolazine [Ranexa] 1,000 mg PO BID 05/16/18 06/25/19 History Nephron FA 1 tab PO DAILY 02/22/19 06/25/19 History aspirin 81 mg PO DAILY 02/22/19 06/25/19 History carvedilol 25 mg PO BID 02/22/19 06/25/19 History ferrous gluconate 324 mg PO DAILY 02/22/19 06/25/19 History isosorbide mononitrate 60 mg PO BID 02/22/19 06/25/19 History nortriptyline 25 mg PO BID 02/22/19 06/25/19 History olanzapine 10 mg PO HS 02/22/19 06/25/19 History benztropine 1 mg PO BID 06/25/19 06/25/19 History buspirone 10 mg PO BID 06/25/19 06/25/19 History levalbuterol tartrate [Xopenex HFA] 2 inh INHALATION QID PRN 06/25/19 06/25/19 History Patient History Medical History Anemia (Chronic) Atrial fibrillation (Chronic) Benign prostatic hypertrophy (Chronic) Cerebrovascular disease (Chronic) Chronic systolic CHF (congestive heart failure) (Chronic) COPD (chronic obstructive pulmonary disease) (Chronic) Coronary artery disease (Chronic) Remote history of RCA territory [place] with resultant ischemic cardiomyopathy 10/2017-RIGO to LAD, total RCA occlusion that was not amenable to intervention Crohns disease (Chronic) Dyslipidemia (Chronic) GERD (gastroesophageal reflux disease) (Chronic) Hepatitis C (Chronic) Hypertension (Chronic) Ischemic cardiomyopathy (Chronic) Mood disorder (Chronic) Neuropathy (Chronic) Presence of combination internal cardiac defibrillator (ICD) and pacemaker (Chronic) Surgical History S/P coronary artery stent placement Family History Mother Cancer Father Heart disease Social History Preferred Language: Ethiopian Communication Ability: Effective Research Engineer Required: No Beliefs That Will Affect Care: None Current Living Situation: Other Current Living Situation Comment: [facility] Other Information That Helps Us Care for You: No Feels Safe at Home: Yes Smoking Status: Former smoker Tobacco Type: cigarettes ; Smoking End Date: february 2019 ; Tobacco Cessation Education Requested by Patient: No Hx Alcohol Use: No Hx Substance Use: No Review of Systems Constitutional: + anorexia and + weight loss; no fever, no chills and no fatigue Respiratory: no cough, no chest congestion and no dyspnea Cardiovascular: no chest pain (denies CP currently but undergoing cardiad work up for this), no dyspnea, no orthopnea, no lightheadedness and no syncope Gastrointestinal: + pain with swallowing, + dysphagia, + diarrhea/loose stools and + blood in stools; no abdominal pain, no belching, no bloating, no early satiety, no heartburn, no nausea, no vomiting, no hematemesis, no cramping, no change in stools, no constipation, no fecal incontinence, no constant urge to pass stools, no melena and no problem reported Physical Exam Constitutional: WD/WN, vitals as above Respiratory: normal respiratory effort; no respiratory distress Cardiovascular: Rate/Rhythm: regular rate and regular rhythm Gastrointestinal (Abdomen): normal bowel sounds, soft, nontender, no hepatosplenomegaly Results & Data Vital Signs (Past 12 Hours) Vital Signs Temp Pulse Resp BP Pulse Ox 06/27/19 08:00 36.6 C 68 18 114/68 94 06/27/19 03:51 36.5 C 67 17 102/54 L 96 06/26/19 23:18 36.6 C 74 12 121/66 94 Laboratory Results 06/27/19 Range/Units 06:30 Triglycerides 56 (0-150) mg/dl Cholesterol 97 (0-200) mg/dl LDL Cholesterol, Calc 39 mg/dl VLDL Cholesterol, Calc 11 mg/dl HDL Cholesterol 47 mg/dl Cholesterol/HDL Ratio 2
[2019-06-27] MEDS ORDERED: REGADENOSON 0.4 MG/5 ML SYR IV ONE (11:09)
[2019-06-27] MEDS: ASPIRIN 81 MG ECTAB PO SCH (12:49)
[2019-06-27] MEDS: RANOLAZINE 500 MG ER TAB PO SCH ×2 (12:49→20:11)
[2019-06-27] MEDS: PANTOprazole 40 MG TAB PO SCH ×2 (12:49→20:08)
[2019-06-27] MEDS: ISOSORBIDE MONO EXTENDED REL 60 MG TABCR PO SCH ×2 (12:49→20:08)
[2019-06-27] MEDS: FERROUS GLUCONATE 324 MG TAB PO SCH (12:50)
[2019-06-27] MEDS: carvediloL 25 MG TAB PO SCH ×2 (12:50→20:08)
[2019-06-27] MEDS: MESALAMINE 400 MG CAPDR PO SCH ×2 (12:50→20:10)
[2019-06-27] MEDS: NORTRIPTYLINE HCL 25 MG CAP PO SCH ×2 (12:50→20:10)
[2019-06-27] MEDS: BENZTROPINE MESYLATE 1 MG TAB PO SCH ×2 (12:50→20:10)
--- NOTE | 2019-06-27 13:48 | Cardiology Progress Note ---
Date of Service June 27, 2019 Assessment & Plan (1) Substernal chest pain: Nuclear stress testing was nonischemic. I do not see any active cardiac pathophysiology to his chest discomfort at this point. I agree with exploring possible GI sources of his discomfort. We will continue his outpatient aspirin, atorvastatin and beta-blockade Okay to discharge from a cardiac standpoint. (2) Coronary artery disease: We will continue aspirin and atorvastatin. (3) Chronic systolic CHF (congestive heart failure): LV systolic function remains reduced at 40 to 45% with no significant change compared to previous study. Patient does not examine his volume overloaded at this time. (4) Presence of combination internal cardiac defibrillator (ICD) and pacemaker: Device was remotely interrogated in the ED with report of normal function and no triggers or alarms. (5) Symptomatic anemia: History, was previously on Coumadin for paroxysmal atrial fibrillation which is been held since his previous hospitalization. (6) PAF (paroxysmal atrial fibrillation): Currently normal sinus rhythm Coumadin will not be restarted at this time. (7) Preop cardiovascular exam: In terms of his preop risk assessment prior to undergoing any possible GI procedures he was counseled that I placed him as a moderate risk for any adverse perioperative cardiovascular event with his wrist being approximately less than 5%. He was further counseled that no further cardiac testing or intervention would further lower that risk. He states he understands, he is accepting of that risk and wishes to proceed with any procedures recommended. I see no need to delay from a cardiac standpoint. Subjective Pt seen and examined, states that he's feeling ok today. States chest pain is improving and he's starting to think it's more his stomach than his heart. Denies sob, palpitations, lightheadedness or dizziness. tele reviewed: normal sinus rhythm without arrhythmia or significant ecotpy Review of Systems Review of Systems: All systems reviewed & are unremarkable except as noted in HPI & below Physical Exam Physical Exam: General: Awake, alert and oriented x 3. No acute distress. HEENT: Normocephalic, atraumatic. Pupils equal, round and reactive to light and accommodation. Extraocular muscles are intact. Anicteric sclera. Moist mucous membranes. Neck: No JVD. No bruit. Cardiovascular: Regular. Positive S-4. Normal S-1 and S-2. No S-3. No murmurs or rubs. Pulmonary: Clear to auscultation B/L. No rales, rhonchi or wheezing Abdomen: Bowel sounds x 4, soft. No rebound, guarding or tenderness. No organomegaly. Extremities: No clubbing, cyanosis or edema. +2 pedal pulses bilaterally. Skin: Warm and dry. Results & Data Vital Signs (Past 12 Hours) Vital Signs Temp Pulse Pulse Resp BP Pulse Ox 06/27/19 12:30 37.1 C 83 18 141/86 H 96 06/27/19 08:00 36.6 C 61 68 18 114/68 94 06/27/19 03:51 36.5 C 67 17 102/54 L 96 Laboratory Results Laboratory Results - last 24 hr 06/27/19 06:30 Triglycerides 56 Cholesterol 97 LDL Cholesterol, Calc 39 VLDL Cholesterol, Calc 11 HDL Cholesterol 47 Cholesterol/HDL Ratio 2 Medications Administered Current Inpatient Medications Acetaminophen (Tylenol) 650 mg PO Q4H PRN PRN Reason: Pain or Fever Stop: 07/25/19 05:21 Last Admin: 06/25/19 13:10 Dose: 650 mg Documented by: Al Hydrox/Mg Hydrox/Simethicone (Maalox Max) 15 ml PO Q6H PRN PRN Reason: Heartburn Stop: 07/25/19 09:49 Last Admin: 06/25/19 13:11 Dose: 15 ml Documented by: Aspirin (Ecotrin Ectab) 81 mg PO DAILY [facility] Stop: 07/25/19 08:59 Last Admin: 06/27/19 12:49 Dose: 81 mg Documented by: Atorvastatin Calcium (Lipitor) 40 mg PO HS [facility] Stop: 07/25/19 20:59 Last Admin: 06/26/19 19:52 Dose: 40 mg Documented by: Benztropine Mesylate (Cogentin) 1 mg PO BID [facility] Stop: 07/25/19 08:59 Last Admin: 06/27/19 12:50 Dose: 1 mg Documented by: Buspirone HCl (Buspar) 10 mg PO BID [facility] Stop: 07/25/19 08:59 Last Admin: 06/27/19 12:50 Dose: 10 mg Documented by: Carvedilol (Coreg) 25 mg PO BID [facility] Stop: 07/25/19 08:59 Last Admin: 06/27/19 12:50 Dose: 25 mg Documented by: Ferrous Gluconate (Ferrous Gluconate) 324 mg PO DAILY [facility] Stop: 07/25/19 08:59 Last Admin: 06/27/19 12:50 Dose: 324 mg Documented by: Isosorbide Mononitrate (Imdur Extended Rel) 60 mg PO BID [facility] Stop: 07/25/19 08:59 Last Admin: 06/27/19 12:49 Dose: 60 mg Documented by: Levalbuterol HCl (Xopenex Hfa) 2 puffs INH QID PRN PRN Reason: Unknown Stop: 07/25/19 05:21 Lisinopril (Zestril) 2.5 mg PO DAILY [facility] Stop: 07/25/19 08:59 Last Admin: 06/27/19 12:49 Dose: 2.5 mg Documented by: Mesalamine (Delzicol) 800 mg PO BID [facility] Stop: 07/25/19 08:59 Last Admin: 06/27/19 12:50 Dose: 800 mg Documented by: Mometasone Furoate (Asmanex 220mcg) 1 puffs INH HS [facility] Stop: 07/27/19 20:59 Nitroglycerin (Nitrostat) 0.4 mg SL UD PRN PRN Reason: Chest Pain Stop: 07/25/19 05:21 Nortriptyline HCl (Pamelor) 25 mg PO BID [facility] Stop: 07/25/19 08:59 Last Admin: 06/27/19 12:50 Dose: 25 mg Documented by: Olanzapine (Zyprexa) 10 mg PO HS [facility] Stop: 07/25/19 20:59 Last Admin: 06/26/19 19:51 Dose: 10 mg Documented by: Ondansetron HCl (Zofran) 4 mg IV Q6H PRN PRN Reason: Nausea Stop: 07/25/19 05:21 Pantoprazole Sodium (Protonix) 40 mg PO BID [facility] Stop: 07/25/19 09:59 Last Admin: 06/27/19 12:49 Dose: 40 mg Documented by: Ranolazine (Ranexa) 1,000 mg PO BID [facility] Stop: 07/25/19 08:59 Last Admin: 06/27/19 12:49 Dose: 1,000 mg Documented by:
--- NOTE | 2019-06-27 15:41 | Myocardial Perfusion Study ---
Date of Service June 27, 2019 Myocardial Perfusion Study [facility] Myocardial Perfusion Study Report Procedure: 1. Myocardial perfusion study performed in multiple views/images 2. Lexiscan pharmacologic stress ECG Indications: 1. 63-year-old male with a history of coronary artery disease and recurrent chest pain Ordering physician: Fred Procedural details: For the stress portion of the study, Lexiscan 0.4 mg was intravenously administered followed by a saline flush. This was followed by 32.2 mCi of technetium 99m Cardiolite, injected at 1130 on 06/27/2019. 30 minutes following the injection, imaging of the heart was performed in multiple projections. For the rest portion of the study, 11.1 mCi technetium 99m Cardiolite was injected intravenously at 0 940 on 06/27/2019. 1 hour following the injection, imaging of the heart was performed in the same projections. Lexiscan stress ECG: Resting ECG demonstrated: Normal sinus rhythm with underlying left bundle branch block Maximum heart rate: 91 bpm Maximal, age-predicted heart rate: 57 % Resting blood pressure: 158/82 mmHg Maximum blood pressure: 158/[address] changes: None Arrhythmia: None Symptoms: None Findings: Rotating raw imaging demonstrated no significant lung uptake. There is no significant motion artifact. Heart size appeared normal. Myocardial perfusion demonstrated homogeneous uptake with the exception of a small moderate intensity defect involving the basal to mid inferior and inferior septal davis. Defect is present on stress and rest images. No inducible ischemia. Ejection fraction: 52 % Wall motion: Moderate hypokinesis of the inferior and inferior septal davis otherwise normal No significant transient ischemic dilation. Impression: 1. Nonischemic Lexiscan nuclear stress test with small RCA distribution scar. EF 52%
--- NOTE | 2019-06-27 17:12 | Hospitalist Progress Note ---
Date of Service June 27, 2019 Assessment & Plan (1) Substernal chest pain: Present on admission with chest pain associated with SOB Need to R/O ACS Troponinx4 negative EKG showed no acute ischemic changes. Cardiology on board Lexiscan nuclear stress test done today showed nonischemic Lexiscan nuclear stress test with small RCA distribution scar. Continue his outpatient aspirin, atorvastatin and beta-blockade Need to r/o GI etiology Okay to discharge from cardiac standpoint (2) Coronary artery disease: History of coronary artery disease, status post RCA infarct several years ago. Subsequent cardiac catheterization at [facility] in 2018 showed mid LAD lesion; PCI with drug-eluting stent performed. Continue aspirin, carvedilol, lisinopril and atorvastatin. (3) Chronic systolic CHF (congestive heart failure): History of ischemic cardiomyopathy. Echocardiogram 05/16/2018 demonstrated akinesis of inferior wall, overall LVEF 40-45%, grade 1 diastolic dysfunction. Status post ICD placement. No signs of fluid overload Continue carvedilol, lisinopril, nitrates. Stable (4) Atrial fibrillation: Currently in sinus rhythm with rate control with carvedilol Not anticoagulated because of chronic GI bleeding. Continue carvedilol. (5) COPD (chronic obstructive pulmonary disease): Continue inhaler Stable (6) GERD (gastroesophageal reflux disease): History of GERD. Continue pantoprazole on discharge (7) Dysphagia: Patient reports dysphagia to solids. Case discussed with GI for possible EGD in am OK from cardiology standpoint to proceed with EGD Will Keep NPO after midnight (8) Crohns disease: Complaints of abdominal discomfort, loose stools, hematochezia. Hemoglobin at time of admission 12.5. Continue mesalamine. Stable . (9) Dyslipidemia: Continue statin. (10) Nasal pain: Facial xray showed nasal bone fracture Denies any pain (11) DVT prophylaxis: No anticoagulants due to chronic GI bleeding. SCDs. (12) Discharge planning issues: Anticipated return to [facility] under care of medical team there. Subjective Pt was seen and examined Lying in bed with no distress with 2 security guards present Pt said that he feels ok Denies any chest pain, palpitation and SOB Physical Exam Physical Exam: General- No acute distress Head- atraumatic Eyes- PERRL, EOMI, ENT- oropharynx clear Neck- supple, no JVD Lungs- clear to auscultation Heart- regular rhythm; no murmur Abdomen- normal bowel sounds, soft, nontender Extremities- no calf tenderness Neuro- alert, oriented x 3; PERRL, EOMI; no facial palsy; no dysarthria Skin- warm & dry Results & Data Vital Signs (Past 12 Hours) Vital Signs Temp Pulse Pulse Resp BP Pulse Ox 06/27/19 15:23 36.9 C 72 17 131/63 93 06/27/19 12:30 37.1 C 83 18 141/86 H 96 06/27/19 08:00 36.6 C 61 68 18 114/68 94
[2019-06-27] MEDS: ATORVASTATIN 40 MG TAB PO SCH (20:09)
[2019-06-27] MEDS: OLANZapine 10 MG TAB PO SCH (20:11)
[2019-06-27] MEDS: MOMETASONE FUROATE 14 PUFF/1 INHALER INH SCH (20:12)
[2019-06-28] MEDS: FERROUS GLUCONATE 324 MG TAB PO SCH (08:33)
[2019-06-28] MEDS: RANOLAZINE 500 MG ER TAB PO SCH ×2 (08:34→21:02)
[2019-06-28] MEDS: MESALAMINE 400 MG CAPDR PO SCH ×2 (08:36→21:02)
[2019-06-28] MEDS: ASPIRIN 81 MG ECTAB PO SCH (08:36)
[2019-06-28] MEDS: NORTRIPTYLINE HCL 25 MG CAP PO SCH ×2 (08:37→21:01)
[2019-06-28] MEDS: PANTOprazole 40 MG TAB PO SCH ×2 (08:38→21:01)
[2019-06-28] MEDS: ISOSORBIDE MONO EXTENDED REL 60 MG TABCR PO SCH ×2 (08:38→21:03)
[2019-06-28] MEDS: carvediloL 25 MG TAB PO SCH ×2 (08:38→21:02)
[2019-06-28] MEDS: BENZTROPINE MESYLATE 1 MG TAB PO SCH ×2 (08:54→21:03)
--- NOTE | 2019-06-28 09:08 | History & Physical Report ---
Date of Service June 28, 2019 Assessment & Plan (1) PAF (paroxysmal atrial fibrillation): (2) Dysphagia: EGD today (3) Substernal chest pain: History of Present Illness Chief Complaint: dysphagia Primary Care Provider: DARIELA Zamora several months of dysphagia both solids and liquids. Allergies Allergy/AdvReac Type Severity Reaction Status Date / Time Penicillins AdvReac Intermediate "I get Verified 06/25/19 03:18 sick." Sulfa (Sulfonamide AdvReac Intermediate "I get Verified 06/25/19 03:18 Antibiotics) sick." OLEORESIN CAPSICUM Allergy Unknown UNKNOWN Uncoded 06/25/19 03:18 Home Medications Home Medications Medication Instructions Recorded Confirmed Type Alvesco 1 puff INHALATION BID 05/16/18 06/25/19 History atorvastatin 40 mg PO HS 05/16/18 06/25/19 History haloperidol decanoate 1.5 ml IM DIRECTED 05/16/18 06/25/19 History lisinopril 2.5 mg PO DAILY 05/16/18 06/25/19 History mesalamine 800 mg PO BID 05/16/18 06/25/19 History nitroglycerin [Nitrostat] 0.4 mg SUBLINGUAL QID PRN 05/16/18 06/25/19 History ranolazine [Ranexa] 1,000 mg PO BID 05/16/18 06/25/19 History Nephron FA 1 tab PO DAILY 02/22/19 06/25/19 History aspirin 81 mg PO DAILY 02/22/19 06/25/19 History carvedilol 25 mg PO BID 02/22/19 06/25/19 History ferrous gluconate 324 mg PO DAILY 02/22/19 06/25/19 History isosorbide mononitrate 60 mg PO BID 02/22/19 06/25/19 History nortriptyline 25 mg PO BID 02/22/19 06/25/19 History olanzapine 10 mg PO HS 02/22/19 06/25/19 History benztropine 1 mg PO BID 06/25/19 06/25/19 History buspirone 10 mg PO BID 06/25/19 06/25/19 History levalbuterol tartrate [Xopenex HFA] 2 inh INHALATION QID PRN 06/25/19 06/25/19 History Past Med/Surg History Medical History Anemia (Chronic) Atrial fibrillation (Chronic) Benign prostatic hypertrophy (Chronic) Cerebrovascular disease (Chronic) Chronic systolic CHF (congestive heart failure) (Chronic) COPD (chronic obstructive pulmonary disease) (Chronic) Coronary artery disease (Chronic) Remote history of RCA territory [place] with resultant ischemic cardiomyopathy 10/2017-RIGO to LAD, total RCA occlusion that was not amenable to intervention Crohns disease (Chronic) Dyslipidemia (Chronic) GERD (gastroesophageal reflux disease) (Chronic) Hepatitis C (Chronic) Hypertension (Chronic) Ischemic cardiomyopathy (Chronic) Mood disorder (Chronic) Neuropathy (Chronic) Presence of combination internal cardiac defibrillator (ICD) and pacemaker (Chronic) Surgical History S/P coronary artery stent placement Family History Mother Cancer Father Heart disease Social History Preferred Language: Citizen Of [place] Communication Ability: Effective Spooling Supervisor Required: No Beliefs That Will Affect Care: None Current Living Situation: Other Current Living Situation Comment: [facility] Other Information That Helps Us Care for You: No Feels Safe at Home: Yes Smoking Status: Former smoker Tobacco Type: cigarettes ; Smoking End Date: february 2019 ; Tobacco Cessation Education Requested by Patient: No Hx Alcohol Use: No Hx Substance Use: No Physical Exam Constitutional: WD/WN, vitals as above Respiratory: normal respiratory effort, lungs clear to auscultation Cardiovascular: RRR, no murmur, no edema Gastrointestinal (Abdomen): normal bowel sounds, soft, nontender, no hepatosplenomegaly Results & Data Vital Signs (Past 12 Hours) Vital Signs Temp Pulse Pulse Resp BP Pulse Ox 06/28/19 07:59 36.9 C 63 18 106/56 L 95 06/28/19 03:18 36.4 C L 66 16 91/48 L 96 06/27/19 23:13 36.4 C L 72 21 104/55 L 94 Code Status & VTE Plan VTE Prophylaxis Plan VTE Prophylaxis will be ordered: Yes
--- NOTE | 2019-06-28 09:16 | Anesthesiology Consultation ---
Date of Service June 28, 2019 Assessment & Plan (1) Encounter for pre-operative examination: Chart Review Chart Review: Acceptable Risk for Surgery and Patient NOT seen in Pre Admission Testing Consults Requested none History Surgery Operation Date: 06/28/19 14:45 Proposed Procedures p Esophagogastroduodenoscopy Dr Caro - Ela Caro Height/Weight Height: 6 ft Weight: 84.7 kg Allergies Allergy/AdvReac Type Severity Reaction Status Date / Time Penicillins AdvReac Intermediate "I get Verified 06/25/19 03:18 sick." Sulfa (Sulfonamide AdvReac Intermediate "I get Verified 06/25/19 03:18 Antibiotics) sick." OLEORESIN CAPSICUM Allergy Unknown UNKNOWN Uncoded 06/25/19 03:18 Medications Home Medications Medication Instructions Recorded Confirmed Last Taken Alvesco 1 puff INHALATION BID 05/16/18 06/25/19 Unknown atorvastatin 40 mg PO HS 05/16/18 06/25/19 06/24/19 haloperidol decanoate 1.5 ml IM DIRECTED 05/16/18 06/25/19 06/15/19 lisinopril 2.5 mg PO DAILY 05/16/18 06/25/19 06/24/19 mesalamine 800 mg PO BID 05/16/18 06/25/19 06/25/19 nitroglycerin [Nitrostat] 0.4 mg SUBLINGUAL QID PRN 05/16/18 06/25/19 Unknown ranolazine [Ranexa] 1,000 mg PO BID 05/16/18 06/25/19 06/25/19 Nephron FA 1 tab PO DAILY 02/22/19 06/25/19 06/25/19 aspirin 81 mg PO DAILY 02/22/19 06/25/19 06/25/19 carvedilol 25 mg PO BID 02/22/19 06/25/19 06/25/19 ferrous gluconate 324 mg PO DAILY 02/22/19 06/25/19 02/21/19 isosorbide mononitrate 60 mg PO BID 02/22/19 06/25/19 06/25/19 nortriptyline 25 mg PO BID 02/22/19 06/25/19 06/25/19 olanzapine 10 mg PO HS 02/22/19 06/25/19 06/24/19 benztropine 1 mg PO BID 06/25/19 06/25/19 06/25/19 buspirone 10 mg PO BID 06/25/19 06/25/19 06/25/19 levalbuterol tartrate [Xopenex HFA] 2 inh INHALATION QID PRN 06/25/19 06/25/19 Unknown Active Medications Generic Name Dose Route Start Last Admin Trade Name Freq PRN Reason Stop Dose Admin Acetaminophen 650 mg 06/25/19 05:22 06/25/19 13:10 Tylenol PO 07/25/19 05:21 650 mg Q4H PRN Administration Pain or Fever Al Hydrox/Mg Hydrox/Simethicone 15 ml 06/25/19 09:50 06/25/19 13:11 Maalox Max PO 07/25/19 09:49 15 ml Q6H PRN Administration Heartburn Aspirin 81 mg 06/25/19 09:00 06/28/19 08:36 Ecotrin Ectab PO 07/25/19 08:59 81 mg DAILY KARAN Administration Atorvastatin Calcium 40 mg 06/25/19 21:00 06/27/19 20:09 Lipitor PO 07/25/19 20:59 40 mg HS KARAN Administration Benztropine Mesylate 1 mg 06/25/19 09:00 06/28/19 08:54 Cogentin PO 07/25/19 08:59 1 mg BID KARAN Administration Buspirone HCl 10 mg 06/25/19 09:00 06/28/19 08:37 Buspar PO 07/25/19 08:59 10 mg BID KARAN Administration Carvedilol 25 mg 06/25/19 09:00 06/28/19 08:38 Coreg PO 07/25/19 08:59 25 mg BID KARAN Administration Ferrous Gluconate 324 mg 06/25/19 09:00 06/28/19 08:33 Ferrous Gluconate PO 07/25/19 08:59 324 mg DAILY KARAN Administration Isosorbide Mononitrate 60 mg 06/25/19 09:00 06/28/19 08:38 Imdur Extended Rel PO 07/25/19 08:59 60 mg BID KARAN Administration Lisinopril 2.5 mg 06/25/19 09:00 06/28/19 08:34 Zestril PO 07/25/19 08:59 2.5 mg DAILY KARAN Administration Mesalamine 800 mg 06/25/19 09:00 06/28/19 08:36 Delzicol PO 07/25/19 08:59 800 mg BID KARAN Administration Mometasone Furoate 1 puffs 06/27/19 21:00 06/27/19 20:12 Asmanex 220mcg INH 07/27/19 20:59 1 puffs HS KARAN Administration Nortriptyline HCl 25 mg 06/25/19 09:00 06/28/19 08:37 Pamelor PO 07/25/19 08:59 25 mg BID KARAN Administration Olanzapine 10 mg 06/25/19 21:00 06/27/19 20:11 Zyprexa PO 07/25/19 20:59 10 mg HS KARAN Administration Pantoprazole Sodium 40 mg 06/25/19 10:00 06/28/19 08:38 Protonix PO 07/25/19 09:59 40 mg BID KARAN Administration Ranolazine 1,000 mg 06/25/19 09:00 06/28/19 08:34 Ranexa PO 07/25/19 08:59 1,000 mg BID KARAN Administration NPO Date Last Intake of Fluids: 06/27/19 Time Last Intake of Fluids: 17:30 Date Last Intake of Solids: 06/27/19 Time Last Intake of Solids: 17:30 Past Medical History Medical History Anemia (Chronic) Atrial fibrillation (Chronic) Benign prostatic hypertrophy (Chronic) Cerebrovascular disease (Chronic) Chronic systolic CHF (congestive heart failure) (Chronic) COPD (chronic obstructive pulmonary disease) (Chronic) Coronary artery disease (Chronic) Remote history of RCA territory [place] with resultant ischemic cardiomyopathy 10/2017-RIGO to LAD, total RCA occlusion that was not amenable to intervention Crohns disease (Chronic) Dyslipidemia (Chronic) GERD (gastroesophageal reflux disease) (Chronic) Hepatitis C (Chronic) Hypertension (Chronic) Ischemic cardiomyopathy (Chronic) Mood disorder (Chronic) Neuropathy (Chronic) Presence of combination internal cardiac defibrillator (ICD) and pacemaker (Chronic) Past Family History Family History Mother Cancer Father Heart disease Past Surgical History Surgical History S/P coronary artery stent placement Social History Smoking Status: Former smoker tobacco type: cigarettes Smoking End Date: february 2019 Hx Alcohol Use: No Hx Substance Use: No Physical Exam Vital Signs Last Vital Signs Temp 36.6 C 06/28/19 09:04 Pulse 67 06/28/19 09:04 Resp 18 06/28/19 09:04 BP 116/62 06/28/19 09:04 Pulse Ox 94 06/28/19 09:04 Testing Laboratory Results 06/26/19 05:14 06/26/19 05:14 PT 11.2 Seconds (9.0-12.0) 06/25/19 02:50 INR 1.1 (0.9-1.1) 06/25/19 02:50 APTT 26.3 Seconds (21.0-31.0) 06/25/19 02:50
[2019-06-28] MEDS ORDERED: ATROPINE SULFATE 0.1 MG/ML 10ML SYR IV PRN (09:20)
[2019-06-28] MEDS ORDERED: ePHEDrine sulfate 50 MG/ML AMP IV PRN (09:20)
[2019-06-28] MEDS ORDERED: LIDOCAINE HCL 2% 2 ML VIAL/AMP(20MG/ML) INFIL ONE (09:43)
[2019-06-28] MEDS ORDERED: PROPOFOL IV EMULSION 10 MG/ML 20 ML VIAL IV ONE (09:43)
--- NOTE | 2019-06-28 09:43 | GI REPORT ---
Patient Name: Edil Busby Procedure Date: 06/28/2019 9:26 AM Date of : 1955 Admit Type: Inpatient Age: 63 Gender: Male Attending MD: Ela Caro DO Procedure: Upper GI endoscopy Providers: Ela Caro DO Referring MD: RAFAEL Cardona Indications: Dysphagia Medicines: Propofol per Anesthesia Complications: No immediate complications. Estimated blood loss: None. Estimated Blood Loss: Estimated blood loss: none. Procedure: Pre-Anesthesia Assessment: - Prior to the procedure, a History and Physical was performed, and patient medications, allergies and sensitivities were reviewed. The patient's tolerance of previous anesthesia was reviewed. - The risks and benefits of the procedure and the sedation options and risks were discussed with the patient. All questions were answered and informed consent was obtained. - Patient identification and proposed procedure were verified prior to the procedure by the physician and the nurse. The procedure was verified in the pre-procedure area in the procedure room. - Mental Status Examination: alert and oriented. Airway Examination: normal oropharyngeal airway and neck mobility. Respiratory Examination: clear to auscultation. CV Examination: normal. Abdominal Examination: bowel sounds present, abdomen soft and non-tender, no masses or organomegaly noted. - ASA Grade Assessment: IV - A patient with severe systemic disease that is a constant threat to life. After obtaining informed consent, the endoscope was passed under direct vision. Throughout the procedure, the patient's blood pressure, pulse, and oxygen saturations were monitored continuously. The Endoscope was introduced through the mouth, and advanced to the second part of duodenum. The upper GI endoscopy was accomplished without difficulty. The patient tolerated the procedure well. Findings: Savary-Ortiz Grade III (circumferential lesion, erosive or exudative) esophagitis with no bleeding was found at the gastroesophageal junction. The stomach was normal. The examined duodenum was normal. Impression: - Savary-Ortiz Grade III reflux esophagitis. - Normal stomach. Some retained food and medications,. - Normal examined duodenum. - No specimens collected. Recommendation: - Follow an antireflux regimen. - Use a proton pump inhibitor PO BID. - Consider video swallow evaluation. - [facility] patient to [facility] for [facility] care. Ela Caro D.O. Ela Caro DO 06/28/2019 9:43:11 AM This report has been signed electronically. Note Initiated On: 06/28/2019 9:26 AM Number of Addenda: 0 I attest to the content of the Intraoperative Record and orders documented therein, exceptions below {[id number]}
--- NOTE | 2019-06-28 09:46 | Communication Note ---
Date of Service: June 28, 2019 EGD completed. Please see report of findings and recommendations. Again would recommend to check stool for c.diff and stool culture. If negative would recommend OP colonoscopy in about 3-4 weeks given his history of crohn's and chronic diarrhea, weight loss w/ intermittent rectal bleeding. Will sign off. Thank you for allowing us to participate in the care of this patient. Please call with any acute changes, questions or concerns. Please see addendum below with additional recommendation from my supervising physician.
[2019-06-28] MEDS ORDERED: ePHEDrine sulfate 50 MG/ML SYR ONE (10:20)
[2019-06-28] MEDS ORDERED: PHENYLEPHRINE 100MCG/ML 5ML SYR ONE (10:20)
--- NOTE | 2019-06-28 12:20 | Cardiology Progress Note ---
Date of Service June 28, 2019 Assessment & Plan (1) Substernal chest pain: Nuclear stress testing was nonischemic. I do not see any active cardiac pathophysiology to his chest discomfort at this point. I agree with exploring possible GI sources of his discomfort. We will continue his outpatient aspirin, atorvastatin and beta-blockade Okay to discharge from a cardiac standpoint. (2) Coronary artery disease: We will continue aspirin and atorvastatin. (3) Chronic systolic CHF (congestive heart failure): LV systolic function remains reduced at 40 to 45% with no significant change compared to previous study. Patient does not examine his volume overloaded at this time. (4) Presence of combination internal cardiac defibrillator (ICD) and pacemaker: Device was remotely interrogated in the ED with report of normal function and no triggers or alarms. (5) Symptomatic anemia: History, was previously on Coumadin for paroxysmal atrial fibrillation which is been held since his previous hospitalization. would not restart at this time. f/u as outpatient with primary relief operator (6) PAF (paroxysmal atrial fibrillation): Currently normal sinus rhythm Coumadin will not be restarted at this time. (7) Preop cardiovascular exam: In terms of his preop risk assessment prior to undergoing any possible GI procedures he was counseled that I placed him as a moderate risk for any adverse perioperative cardiovascular event with his wrist being approximately less than 5%. He was further counseled that no further cardiac testing or intervention would further lower that risk. He states he understands, he is accepting of that risk and wishes to proceed with any procedures recommended. I see no need to delay from a cardiac standpoint. Subjective Pt seen and examined, feeling ok today. Denies cp, sob, palpitations, lightheadedness or dizziness. tele reviewed: normal sinus rhythm without arrhythmia. Review of Systems Review of Systems: All systems reviewed & are unremarkable except as noted in HPI & below Physical Exam Physical Exam: General: Awake, alert and oriented x 3. No acute distress. HEENT: Normocephalic, atraumatic. Pupils equal, round and reactive to light and accommodation. Extraocular muscles are intact. Anicteric sclera. Moist mucous membranes. Neck: No JVD. No bruit. Cardiovascular: Regular. Positive S-4. Normal S-1 and S-2. No S-3. No murmurs or rubs. Pulmonary: Clear to auscultation B/L. No rales, rhonchi or wheezing Abdomen: Bowel sounds x 4, soft. No rebound, guarding or tenderness. No organomegaly. Extremities: No clubbing, cyanosis or edema. +2 pedal pulses bilaterally. Skin: Warm and dry. Results & Data Vital Signs (Past 12 Hours) Vital Signs Temp Pulse Pulse Pulse Resp BP Pulse Ox 06/28/19 11:43 36.9 C 66 20 103/60 94 06/28/19 10:10 66 16 98/62 L 97 06/28/19 09:55 66 16 107/64 97 06/28/19 09:40 58 L 16 94/52 L 99 06/28/19 09:04 36.6 C 67 18 116/62 94 06/28/19 07:59 36.9 C 63 18 106/56 L 95 06/28/19 07:25 59 L 06/28/19 03:18 36.4 C L 66 16 91/48 L 96 Medications Administered Current Inpatient Medications Acetaminophen (Tylenol) 650 mg PO Q4H PRN PRN Reason: Pain or Fever Stop: 07/25/19 05:21 Last Admin: 06/25/19 13:10 Dose: 650 mg Documented by: Al Hydrox/Mg Hydrox/Simethicone (Maalox Max) 15 ml PO Q6H PRN PRN Reason: Heartburn Stop: 07/25/19 09:49 Last Admin: 06/25/19 13:11 Dose: 15 ml Documented by: Aspirin (Ecotrin Ectab) 81 mg PO DAILY [facility] Stop: 07/25/19 08:59 Last Admin: 06/28/19 08:36 Dose: 81 mg Documented by: Atorvastatin Calcium (Lipitor) 40 mg PO HS [facility] Stop: 07/25/19 20:59 Last Admin: 06/27/19 20:09 Dose: 40 mg Documented by: Atropine Sulfate (Atropine Sulfate) 0.5 mg IV Q1M PRN PRN Reason: PACU Use-HR<40 &/or Bradycardi Stop: 06/28/19 14:20 Benztropine Mesylate (Cogentin) 1 mg PO BID [facility] Stop: 07/25/19 08:59 Last Admin: 06/28/19 08:54 Dose: 1 mg Documented by: Buspirone HCl (Buspar) 10 mg PO BID [facility] Stop: 07/25/19 08:59 Last Admin: 06/28/19 08:37 Dose: 10 mg Documented by: Carvedilol (Coreg) 25 mg PO BID [facility] Stop: 07/25/19 08:59 Last Admin: 06/28/19 08:38 Dose: 25 mg Documented by: Ephedrine Sulfate (Ephedrine Sulfate) 5 mg IV Q5M PRN PRN Reason: PACU Use Only-SBP<90 mmHg Stop: 06/28/19 14:20 Ferrous Gluconate (Ferrous Gluconate) 324 mg PO DAILY KARAN Stop: 07/25/19 08:59 Last Admin: 06/28/19 08:33 Dose: 324 mg Documented by: Isosorbide Mononitrate (Imdur Extended Rel) 60 mg PO BID [facility] Stop: 07/25/19 08:59 Last Admin: 06/28/19 08:38 Dose: 60 mg Documented by: Levalbuterol HCl (Xopenex Hfa) 2 puffs INH QID PRN PRN Reason: Unknown Stop: 07/25/19 05:21 Lisinopril (Zestril) 2.5 mg PO DAILY [facility] Stop: 07/25/19 08:59 Last Admin: 06/28/19 08:34 Dose: 2.5 mg Documented by: Mesalamine (Delzicol) 800 mg PO BID [facility] Stop: 07/25/19 08:59 Last Admin: 06/28/19 08:36 Dose: 800 mg Documented by: Mometasone Furoate (Asmanex 220mcg) 1 puffs INH HS KARAN Stop: 07/27/19 20:59 Last Admin: 06/27/19 20:12 Dose: 1 puffs Documented by: Nitroglycerin (Nitrostat) 0.4 mg SL UD PRN PRN Reason: Chest Pain Stop: 07/25/19 05:21 Nortriptyline HCl (Pamelor) 25 mg PO BID [facility] Stop: 07/25/19 08:59 Last Admin: 06/28/19 08:37 Dose: 25 mg Documented by: Olanzapine (Zyprexa) 10 mg PO HS KARAN Stop: 07/25/19 20:59 Last Admin: 06/27/19 20:11 Dose: 10 mg Documented by: Ondansetron HCl (Zofran) 4 mg IV Q6H PRN PRN Reason: Nausea Stop: 07/25/19 05:21 Pantoprazole Sodium (Protonix) 40 mg PO BID [facility] Stop: 07/25/19 09:59 Last Admin: 06/28/19 08:38 Dose: 40 mg Documented by: Ranolazine (Ranexa) 1,000 mg PO BID [facility] Stop: 07/25/19 08:59 Last Admin: 06/28/19 08:34 Dose: 1,000 mg Documented by:
--- NOTE | 2019-06-28 14:02 | Anesthesiology Progress Note ---
Date of Service June 28, 2019 Anesthesia Post Procedure Vital Signs Vital Signs: Temp Pulse Pulse Pulse Resp BP Pulse Ox 06/28/19 11:43 36.9 C 66 20 103/60 94 06/28/19 10:10 66 16 98/62 L 97 06/28/19 09:55 66 16 107/64 97 06/28/19 09:40 58 L 16 94/52 L 99 06/28/19 09:04 36.6 C 67 18 116/62 94 06/28/19 07:59 36.9 C 63 18 106/56 L 95 06/28/19 07:25 59 L 06/28/19 03:18 36.4 C L 66 16 91/48 L 96 06/27/19 23:13 36.4 C L 72 21 104/55 L 94 06/27/19 19:00 36.4 C L 77 19 98/56 L 95 06/27/19 15:23 36.9 C 72 17 131/63 93 Pain Intensity Chest: Pain Intensity: 7 Transfer of Care Handoff Completed per policy Notes Mental Status: alert / awake / arousable Patient Amnestic to Procedure: Yes Nausea / Vomiting: adequately controlled Pain: adequately controlled Airway Patency, RR, SpO2: stable & adequate BP & HR: stable & adequate Hydration State: stable & adequate Anesthetic Complications: no major complications apparent and Pt Satisfied with anesthetic care
--- NOTE | 2019-06-28 18:19 | Hospitalist Progress Note ---
Date of Service June 28, 2019 Assessment & Plan (1) Substernal chest pain: Present on admission with chest pain associated with SOB Need to R/O ACS Troponinx4 negative EKG showed no acute ischemic changes. Cardiology on board Lexiscan nuclear stress test done today showed nonischemic Lexiscan nuclear stress test with small RCA distribution scar. Continue his outpatient aspirin, atorvastatin and beta-blockade Need to r/o GI etiology Okay to discharge from cardiac standpoint (2) Coronary artery disease: History of coronary artery disease, status post RCA infarct several years ago. Subsequent cardiac catheterization at [facility] in 2018 showed mid LAD lesion; PCI with drug-eluting stent performed. Continue aspirin, carvedilol, lisinopril and atorvastatin. (3) Chronic systolic CHF (congestive heart failure): History of ischemic cardiomyopathy. Echocardiogram 05/16/2018 demonstrated akinesis of inferior wall, overall LVEF 40-45%, grade 1 diastolic dysfunction. Status post ICD placement. No signs of fluid overload Continue carvedilol, lisinopril, nitrates. Stable (4) Atrial fibrillation: Currently in sinus rhythm with rate control with carvedilol Not anticoagulated because of chronic GI bleeding. Continue carvedilol. (5) COPD (chronic obstructive pulmonary disease): Continue inhaler Stable (6) GERD (gastroesophageal reflux disease): History of GERD. Continue pantoprazole on discharge (7) Dysphagia: Patient reports dysphagia to solids. EGD done today showed Karen-Ortiz grade 3 reflux esophagitis GI recommended PPI BID case discussed with speech therapy Plan for Video swallow in am Continue monitor (8) Crohns disease: Complaints of abdominal discomfort, loose stools, hematochezia. Hemoglobin at time of admission 12.5. Continue mesalamine. Stable . (9) Dyslipidemia: Continue statin. (10) Nasal pain: Facial xray showed nasal bone fracture Denies any pain (11) DVT prophylaxis: No anticoagulants due to chronic GI bleeding. SCDs. (12) Discharge planning issues: Anticipated return to [facility] under care of medical team there. Will transfer to medical Subjective Pt was seen and examined Lying in bed with no distress watching TV with 2 guards present Pt said that he feels ok He had EGD done today He said that sometimes when he eats that he regurgiates the food Denies any chest pain, palpitation and SOB Physical Exam Physical Exam: General- No acute distress Head- atraumatic Eyes- PERRL, EOMI, ENT- oropharynx clear Neck- supple, no JVD Lungs- clear to auscultation Heart- regular rhythm; no murmur Abdomen- normal bowel sounds, soft, nontender Extremities- no calf tenderness Neuro- alert, oriented x 3; PERRL, EOMI; no facial palsy; no dysarthria Skin- warm & dry Results & Data Vital Signs (Past 12 Hours) Vital Signs Temp Pulse Pulse Resp BP Pulse Ox 06/28/19 15:37 36.7 C 76 18 110/63 96 06/28/19 14:20 66 06/28/19 11:43 36.9 C 66 20 103/60 94 06/28/19 10:10 66 16 98/62 L 97 06/28/19 09:55 66 16 107/64 97 06/28/19 09:40 58 L 16 94/52 L 99 06/28/19 09:04 36.6 C 67 18 116/62 94 06/28/19 07:59 36.9 C 63 18 106/56 L 95 06/28/19 07:25 59 L
[2019-06-28] MEDS: ATORVASTATIN 40 MG TAB PO SCH (21:01)
[2019-06-28] MEDS: OLANZapine 10 MG TAB PO SCH (21:02)
[2019-06-28] MEDS: MOMETASONE FUROATE 14 PUFF/1 INHALER INH SCH (21:03)
[2019-06-29] MEDS: PANTOprazole 40 MG TAB PO SCH (07:35)
[2019-06-29] MEDS: ASPIRIN 81 MG ECTAB PO SCH (07:35)
[2019-06-29] MEDS: FERROUS GLUCONATE 324 MG TAB PO SCH (07:35)
[2019-06-29] MEDS: MESALAMINE 400 MG CAPDR PO SCH (07:35)
[2019-06-29] MEDS: ISOSORBIDE MONO EXTENDED REL 60 MG TABCR PO SCH (07:35)
[2019-06-29] MEDS: NORTRIPTYLINE HCL 25 MG CAP PO SCH (07:35)
[2019-06-29] MEDS: carvediloL 25 MG TAB PO SCH (07:36)
[2019-06-29] MEDS: BENZTROPINE MESYLATE 1 MG TAB PO SCH (07:36)
[2019-06-29] MEDS: RANOLAZINE 500 MG ER TAB PO SCH (07:36)
--- NOTE | 2019-06-29 12:29 | Fluoroscopy Report ---
FL video swallow CLINICAL HISTORY: 63 years-old Male presenting with food retention on EGD. TECHNIQUE: Video fluoroscopic evaluation of swallowing was performed in the AP and lateral projection s in conjunction with speech pathology. The patient was administered various textures, including nect ar-thick and thin liquid barium, a barium coated wafer, and barium pudding. COMPARISON: None. FINDINGS: Limited evaluation of the esophagus demonstrate an implanted cardiac defibrillator with lead to the r ight ventricular apex. An adequate primary esophageal peristaltic wave. Uncoordinated secondary esoph ageal contractions with evidence of tertiary contractions. Degenerative changes of the cervical spine . Normal oral transit, including normal tongue-soft palate seal. Normal soft palate-superior constricto r muscle seal without evidence of nasopharyngeal regurgitation. Normal oral transport/propulsion of t he food bolus. Normal hyoid elevation and epiglottic deflection. Mild bolus residual in the vallecula e. None of the administered textures resulted in laryngeal penetration within the laryngeal vestibule. N one of the administered textures resulted in aspiration of barium contrast below the level of the nona e vocal folds. Fluoroscopy dosage (mGy): Not available. Fluoroscopy time: 2.4 minutes. Number or time of high level fluoroscopy (HLF), digital spot, or digital subtraction images: 0. IMPRESSION: 1. No aspiration identified. 2. Significant esophageal dysmotility. This may represent esophageal spasm among other possibilities . Dedicated fluoroscopic examination of the esophagus could be considered. 3. Please see the speech pathologist report for detailed findings and recommendations. Electronically signed by: Matthew Nam M.D. 06/29/2019 12:27 PM
--- NOTE | 2019-06-29 15:34 | Hospitalist Progress Note ---
Date of Service June 29, 2019 Assessment & Plan (1) Substernal chest pain: Present on admission with chest pain associated with SOB Need to R/O ACS Troponinx4 negative EKG showed no acute ischemic changes. Cardiology on board Echo showed inferior wall akinesis along with abnormal septal motion consistent with RV pacing. Mildly reduced LV systolic function with ejection fraction 40 to 45%. No significant change compared to previous study back on 05/16/2018 Lexiscan nuclear stress test done today showed nonischemic Lexiscan nuclear stress test with small RCA distribution scar. Continue his outpatient aspirin, atorvastatin and beta-blockade Need to r/o GI etiology Okay to discharge from cardiac standpoint (2) Coronary artery disease: History of coronary artery disease, status post RCA infarct several years ago. Subsequent cardiac catheterization at [facility] in 2018 showed mid LAD lesion; PCI with drug-eluting stent performed. Continue aspirin, carvedilol, lisinopril and atorvastatin. (3) Chronic systolic CHF (congestive heart failure): History of ischemic cardiomyopathy. Echocardiogram 05/16/2018 demonstrated akinesis of inferior wall, overall LVEF 40-45%, grade 1 diastolic dysfunction. Repeat ECHO showed inferior wall akinesis along with abnormal septal motion consistent with RV pacing. Mildly reduced LV systolic function with ejection fraction 40 to 45%. Status post ICD placement. No signs of fluid overload Continue carvedilol, lisinopril, nitrates. Stable (4) Atrial fibrillation: Currently in sinus rhythm with rate control with carvedilol Not anticoagulated because of chronic GI bleeding. Continue carvedilol. (5) COPD (chronic obstructive pulmonary disease): Continue inhaler Stable (6) GERD (gastroesophageal reflux disease): History of GERD. Continue pantoprazole on discharge (7) Dysphagia: Patient reports dysphagia to solids. EGD done showed Savary-Ortiz grade 3 reflux esophagitis Video swallow done showed no aspiration identified. Significant esophageal dysmotility. Case discussed with GI recommended PPI BID for 2 months Follow up with GI for possible repeat EGD if dysphagia continues Case discussed with speech therapy recommended Speech therapy recommended slippery diet. Avoid dry/thick foods such as dense bread, dry meats,.. Use condiments/gravies as needed to moisten foods. Patient may need extra time at meal to eat slowly Continue Aspiration precaution (8) Crohns disease: Complaints of abdominal discomfort, loose stools, hematochezia. Hemoglobin at time of admission 12.5. Continue mesalamine. Case discussed with GI plan for outpatient colonoscopy Stable . (9) Dyslipidemia: Continue statin. (10) Nasal pain: Facial xray showed nasal bone fracture Denies any pain (11) DVT prophylaxis: No anticoagulants due to chronic GI bleeding. SCDs. (12) Discharge planning issues: Anticipated return to [facility] under care of medical team Case discussed with Preet at medical at [facility] since Dr. Whatley left for the day Subjective Pt was seen and examined. Lying in bed with no distress with 2 guards at bedside. Pt said that he feels fine. Denies any chest pain, palpitation, dizziness and SOB Physical Exam Physical Exam: General- No acute distress Head- atraumatic Eyes- PERRL, EOMI, ENT- oropharynx clear Neck- supple, no JVD Lungs- clear to auscultation Heart- regular rhythm; no murmur Abdomen- normal bowel sounds, soft, nontender Extremities- no calf tenderness Neuro- alert, oriented x 3; PERRL, EOMI; no facial palsy; no dysarthria Skin- warm & dry Results & Data Vital Signs (Past 12 Hours) Vital Signs Temp Pulse Resp BP Pulse Ox 06/29/19 15:10 36.8 C 76 16 98/64 L 97 06/29/19 07:16 36.2 C L 61 20 115/74 97
--- NOTE | 2019-06-30 08:19 | Discharge Summary ---
Date of Service June 29, 2019 Admission HPI Per Admitting Provider CHIEF COMPLAINT: Chest pain. HISTORY OF PRESENT ILLNESS: This is a 63-year-old male with past medical history significant for CAD status post stent, ischemic cardiomyopathy with last echo EF of 40%, status post ICD and pacemaker, history of GI bleed, history of Crohn's disease, history of atrial fibrillation, hepatitis C, BPH, history of CVA, hyperlipidemia, hypertension, GERD, COPD, history of anemia, history of mood disorder, presents with chest pain. The patient says he woke up from sleep with chest pain, stabbing kind of pain in the left chest radiating to his left arm and throat, 7/10 in severity. He took 3 nitros and it did not help and came into the ER and he was given some fentanyl and it did resolve the pain, but he thinks it is coming back and requests for pain medication. During the episode, he was sweating. Denies any nausea or shortness of breath. Currently resting comfortably and hemodynamically stable . He says he was admitted recently for GI bleed and says still has some blood in stool but better than before.. He was on Coumadin for AFib, which was stopped last admission for short term, but it was not resumed, the patient is asking whether it can be resumed. Denies any headache, no blurred vision, no earache, no runny nose, states has some sore throat. He says sometimes it is difficult to swallow solids and has to drink water to push it is down. No abdominal pain. Normal bowel and bladder movements. Still has some blood in the stools. Normal bowel and normal bladder movements. No hematuria or burning micturition, no swelling in the legs, no rash. Ambulates okay. Admission Exam Per Admitting Provider GENERAL: The patient is of moderate built, not in acute distress. VITAL SIGNS: Temperature 36.7, pulse 54, respiratory rate 14, blood pressure 108/70, oxygen 97% room air. HEENT: No pallor, no icterus. Pupils equal, round, reactive to light. NECK: No JVD, no neck masses, no carotid bruit. CARDIOVASCULAR: S1, S2 heard, regular rate and rhythm, no murmur, no gallop. RESPIRATORY SYSTEM: Normal AP diameter. No accessory muscle use. No wheezing, no crackles. ABDOMEN: Soft, bowel sounds present, nontender. No distention. CENTRAL NERVOUS SYSTEM: Alert and awake and oriented. Obeys commands. Moves extremities. Nonfocal. EXTREMITIES: No edema, no erythema. Principal Diagnosis Substernal chest pain Coronary artery disease Chronic systolic CHF (congestive heart failure) Atrial fibrillation COPD (chronic obstructive pulmonary disease) GERD (gastroesophageal reflux disease) Dysphagia Crohns disease Dyslipidemia Nasal Fracture Discharge Exam General- No acute distress Head- atraumatic Eyes- PERRL, EOMI, ENT- oropharynx clear Neck- supple, no JVD Lungs- clear to auscultation Heart- regular rhythm; no murmur Abdomen- normal bowel sounds, soft, nontender Extremities- no calf tenderness Neuro- alert, oriented x 3; PERRL, EOMI; no facial palsy; no dysarthria Skin- warm & dry Discharge Data Allergies Allergy/AdvReac Type Severity Reaction Status Date / Time Penicillins AdvReac Intermediate "I get Verified 06/25/19 03:18 sick." Sulfa (Sulfonamide AdvReac Intermediate "I get Verified 06/25/19 03:18 Antibiotics) sick." OLEORESIN CAPSICUM Allergy Unknown UNKNOWN Uncoded 06/25/19 03:18 Consultations 06/25/19 03:59 ED Decision to Admit Stat 06/25/19 05:22 Consult Case Management - Discharge Planning Routine 06/25/19 08:00 Consult Cardiology Routine 06/27/19 08:11 Consult Gastroenterology Routine Procedures Performed Operation Date: 06/28/19 14:45 Actual Procedures p Esophagogastroduodenoscopy - Ela Caro Ordered Studies 06/29/19 11:30 FL video swallow Routine FL video swallow CLINICAL HISTORY: 63 years-old Male presenting with food retention on EGD. TECHNIQUE: Video fluoroscopic evaluation of swallowing was performed in the AP and lateral projections in conjunction with speech pathology. The patient was administered various textures, including nectar-thick and thin liquid barium, a barium coated wafer, and barium pudding. COMPARISON: None. FINDINGS: Limited evaluation of the esophagus demonstrate an implanted cardiac defibrillator with lead to the right ventricular apex. An adequate primary esophageal peristaltic wave. Uncoordinated secondary esophageal contractions with evidence of tertiary contractions. Degenerative changes of the cervical spine. Normal oral transit, including normal tongue-soft palate seal. Normal soft palate-superior constrictor muscle seal without evidence of nasopharyngeal re gurgitation. Normal oral transport/propulsion of the food bolus. Normal hyoid elevation and epiglottic deflection. Mild bolus residual in the valleculae. None of the administered textures resulted in laryngeal penetration within the laryngeal vestibule. None of the administered textures resulted in aspiration of barium contrast below the level of the true vocal folds. Fluoroscopy dosage (mGy): Not available. Fluoroscopy time: 2.4 minutes. Number or time of high level fluoroscopy (HLF), digital spot, or digital subtraction images: 0. IMPRESSION: 1. No aspiration identified. 2. Significant esophageal dysmotility. This may represent esophageal spasm among other possibilities. Dedicated fluoroscopic examination of the esophagus could be considered. 3. Please see the speech pathologist report for detailed findings and recommendations. Electronically signed by: Matthew Nam M.D. 06/29/2019 12:27 PM Dictated: 06/29/19 1225 Transcribed: 06/29/19 1225 Myocardial Perfusion Study Blk Myocardial Perfusion Study Report Procedure: 1. Myocardial perfusion study performed in multiple views/images 2. Lexiscan pharmacologic stress ECG Indications: 1. 63-year-old male with a history of coronary artery disease and recurrent chest pain Ordering physician: Fred Procedural details: For the stress portion of the study, Lexiscan 0.4 mg was intravenously administered followed by a saline flush. This was followed by 32.2 mCi of technetium 99m Cardiolite, injected at 1130 on 06/27/2019. 30 minutes following the injection, imaging of the heart was performed in multiple projections. For the rest portion of the study, 11.1 mCi technetium 99m Cardiolite was injected intravenously at 0 940 on 06/27/2019. 1 hour following the injection, imaging of the heart was performed in the same projections. Lexiscan stress ECG: Resting ECG demonstrated: Normal sinus rhythm with underlying left bundle branch block Maximum heart rate: 91 bpm Maximal, age-predicted heart rate: 57 % Resting blood pressure: 158/82 mmHg Maximum blood pressure: 158/[address] changes: None Arrhythmia: None Symptoms: None Findings: Rotating raw imaging demonstrated no significant lung uptake. There is no significant motion artifact. Heart size appeared normal. Myocardial perfusion demonstrated homogeneous uptake with the exception of a small moderate intensity defect involving the basal to mid inferior and inferior septal davis. Defect is present on stress and rest images. No inducible ischemia. Ejection fraction: 52 % Wall motion: Moderate hypokinesis of the inferior and inferior septal davis otherwise normal No significant transient ischemic dilation. Impression: 1. Nonischemic Lexiscan nuclear stress test with small RCA distribution scar. EF 52% Signed By:<Electronically signed by Latrell Ibarra DO>06/27/19 1541 Created: 06/27/19 1537 XR nasal bones min 3V CLINICAL HISTORY: nasal injury, r/o fracture COMPARISON STUDY: None. FINDINGS: Minimal right nasal septal deviation with a small right nasal spur. The lamina papyracea and orbital floors are intact. Paranasal sinuses and mastoid air cells are clear. Slight deformity within the nasal bones consistent with a fracture. IMPRESSION: Nasal bone fracture. Electronically signed by: Rich Patel M.D. 06/26/2019 6:44 PM Dictated: 06/26/191842 Transcribed: 06/26/191842 XR chest 1V portable HISTORY: Atypical Chest pain COMPARISON: Chest 02/22/2019. FINDINGS: Left-sided single lead pacemaker/defibrillator. Old, healed left-sided rib fractures. The lungs are clear. The heart is normal in size. No pleural effusions. No pneumothorax. IMPRESSION: No significant change compared to the prior study. No acute process. Electronically signed by: Rich Patel M.D. 06/25/2019 8:27 AM Dictated: 06/25/19826 Transcribed: 06/25/19826 Hospital Course (1) Substernal chest pain: Present on admission with chest pain associated with SOB Need to R/O ACS Troponinx4 negative EKG showed no acute ischemic changes. Cardiology on board Echo showed inferior wall akinesis along with abnormal septal motion consistent with RV pacing. Mildly reduced LV systolic function with ejection fraction 40 to 45%. No significant change compared to previous study back on 05/16/2018 Lexiscan nuclear stress test done today showed nonischemic Lexiscan nuclear stress test with small RCA distribution scar. Continue his outpatient aspirin, atorvastatin and beta-blockade Need to r/o GI etiology Okay to discharge from cardiac standpoint (2) Coronary artery disease: History of coronary artery disease, status post RCA infarct several years ago. Subsequent cardiac catheterization at [facility] in 2018 showed mid LAD lesion; PCI with drug-eluting stent performed. Continue aspirin, carvedilol, lisinopril and atorvastatin. (3) Chronic systolic CHF (congestive heart failure): History of ischemic cardiomyopathy. Echocardiogram 05/16/2018 demonstrated akinesis of inferior wall, overall LVEF 40-45%, grade 1 diastolic dysfunction. Repeat ECHO showed inferior wall akinesis along with abnormal septal motion consistent with RV pacing. Mildly reduced LV systolic function with ejection fraction 40 to 45%. Status post ICD placement. No signs of fluid overload Continue carvedilol, lisinopril, nitrates. Stable (4) Atrial fibrillation: Currently in sinus rhythm with rate control with carvedilol Not anticoagulated because of chronic GI bleeding. Continue carvedilol. (5) COPD (chronic obstructive pulmonary disease): Continue inhaler Stable (6) GERD (gastroesophageal reflux disease): History of GERD. Continue pantoprazole on discharge (7) Dysphagia: Patient reports dysphagia to solids. EGD done showed Savary-Ortiz grade 3 reflux esophagitis Video swallow done showed no aspiration identified. Significant esophageal dysmotility. Case discussed with GI recommended PPI BID for 2 months Follow up with GI for possible repeat EGD if dysphagia continues Case discussed with speech therapy recommended Speech therapy recommended slippery diet. Avoid dry/thick foods such as dense bread, dry meats,.. Use condiments/gravies as needed to moisten foods. Patient may need extra time at meal to eat slowly Continue Aspiration precaution (8) Crohns disease: Complaints of abdominal discomfort, loose stools, hematochezia. Hemoglobin at time of admission 12.5. Continue mesalamine. Case discussed with GI plan for outpatient colonoscopy Stable . (9) Dyslipidemia: Continue statin. (10) Nasal pain: Facial xray showed nasal bone fracture Denies any pain (11) DVT prophylaxis: No anticoagulants due to chronic GI bleeding. SCDs. (12) Discharge planning issues: Anticipated return to [facility] under care of medical team Case discussed with Preet [facility] at [facility] since Dr. Whatley left for the day Total Time Total Time Spent Total Time Spent (In Minutes): 35 minutes Total Time Includes: Examination of the Patient, Discharge Planning, Medication Reconciliation, Communication With Other Providers and Other Discharge Plan Discharge Items [facility] Reason For Visit: CHEST PAIN Discharge Diagnosis: Substernal chest pain Coronary artery disease Chronic systolic CHF (congestive heart failure) Atrial fibrillation COPD (chronic obstructive pulmonary disease) GERD (gastroesophageal reflux disease) Dysphagia Crohns disease Dyslipidemia Nasal Fracture Activity: Resume your previous activity Activity Comment: As tolerated Non-emergency contact: Primary Care Provider and Auditing Clerk Call non-emergency contact if: you have any medication questions Follow-up/Referrals: Noah LYLE [Primary Care Provider] - Diet: Heart Healthy Addtl Attending Provider Instructions: Follow up with your primary care provider at [facility] Noah with Dr. Whaltey Follow up with Gastroenterology to arrange for outpatient colonoscopy and repeat EGD if dysphagia symptoms worsening Case discussed with speech therapy recommended Speech therapy recommended slippery diet. Avoid dry/thick foods such as dense bread, dry meats,.. Use condiments/gravies as needed to moisten foods. Patient may need extra time at meal to eat slowly Continue Aspiration precaution Pending Studies at Discharge: No Stand-Alone Forms: Call Back Authorization, [facility] Skilled Items Patient informed of condition?: Yes Discharge Level of Care: Other Communicable Disease: No Discharge Prognosis: Stable Lines: None Urinary Catheter: No Medications and DC Order Prescriptions: New pantoprazole 40 mg Tablet,Delayed Release (Dr/Ec) 40 mg PO BID Qty: 60 RF: 0 Continued atorvastatin 40 mg Tablet 40 mg PO HS RF: 0 haloperidol decanoate 100 mg/mL Solution 1.5 ml IM DIRECTED RF: 0 nitroglycerin [Nitrostat] 0.4 mg Tablet, Sublingual 0.4 mg Sublingual QID PRN (Reason: Chest Pain) RF: 0 lisinopril 2.5 mg Tablet 2.5 mg PO DAILY RF: 0 ranolazine [Ranexa] 1,000 mg Tablet Extended Release 12 Hr 1,000 mg PO BID RF: 0 Alvesco 160 mcg/actuation Hfa Aerosol Inhaler 1 puff INHALATION BID RF: 0 mesalamine 800 mg Tablet,Delayed Release (Dr/Ec) 800 mg PO BID RF: 0 aspirin 81 mg Tablet,Chewable 81 mg PO DAILY RF: 0 nortriptyline 25 mg Capsule 25 mg PO BID RF: 0 isosorbide mononitrate 60 mg Tablet Extended Release 24 Hr 60 mg PO BID RF: 0 ferrous gluconate 324 mg (37.5 mg iron) Tablet 324 mg PO DAILY RF: 0 carvedilol 25 mg Tablet 25 mg PO BID RF: 0 Nephron FA 66.6-75-1 mg Tablet 1 tab PO DAILY RF: 0 olanzapine 10 mg Tablet 10 mg PO HS RF: 0 buspirone 10 mg Tablet 10 mg PO BID RF: 0 benztropine 1 mg Tablet 1 mg PO BID RF: 0 levalbuterol tartrate [Xopenex HFA] 45 mcg/actuation Hfa Aerosol Inhaler 2 inh INHALATION QID PRN (Reason: Unknown) RF: 0 Discharge Orders: Discharge Order (Routine); Ordered 06/29/19 Ordered By: Ricarda Mcguire Admission Data Admit Date/Time: 06/26/19 09:05 Attending Provider: Ricarda Mcguire Admit Provider: Ruben Lindsay Primary Care Provider: Noah LYLE Other Providers: Atilio Dinh ; Ruben Lindsay ; Latrell Ibarra ; Manohar Galdamez ; Tanner Clifton ; Anselmo Diez ; Ismael Leyva ; Royce Ni ; Elsie Caldera ; Mayela Melchor ; Ela Caro Other Interventions: Discharge Summary Assessment (RN) Last Done: 06/29/19 17:06 DC Date/Time DO NOT enter until pt leaves facility: 06/29/19 19:02
== END 2019-06-29 19:02 | DRG 313 ==
LOC: ED 02:28 → 2S 04:54 → INTOOBSV 04:54 → 2S 04:59 → 2E 15:19 → SUATTDRO 06-26 09:05 → 4W 06-28 18:31